=== PATIENT | male | born 1940 | race Caucasian/White ===

== ENCOUNTER 2022-01-29 10:53 | Outpatient (RCR) | payer MEDICARE, SELFPAY ==
[2022-01-29 11:30] LABS: Anion Gap 5 (5-15); BUN 29 mg/dL (7-18); BUN/Creat Ratio 26.4 RATIO (10-20); Calcium,Total 8.9 mg/dL (8.5-10.1); Chloride 109 mmol/L (98-107); EST Glomerular Filtration Rate 68 mL/min (>60); Est Glom Filt Rate - Afr Amer 83 mL/min (>60); Glucose 91 mg/dL (74-106); Potassium 3.4 mmol/L (3.5-5.1); Sodium Level 144 mmol/L (136-145)
== END 2022-01-29 18:00 | disposition home or self-care (01) ==
LOC: HHLAB 10:53
PROVIDERS: PCP Family Medicine; Visit Provider Family Medicine
DX: I11.0 Hypertensive heart disease with heart failure (principal); I50.30 Unspecified diastolic (congestive) heart failure; I95.1 Orthostatic hypotension; I48.20 Chronic atrial fibrillation, unspecified; I50.1 Left ventricular failure, unspecified; I87.2 Venous insufficiency (chronic) (peripheral); N40.0 Benign prostatic hyperplasia without lower urinary tract symptoms; E87.6 Hypokalemia; E78.5 Hyperlipidemia, unspecified; R29.6 Repeated falls; I25.10 Atherosclerotic heart disease of native coronary artery without angina pectoris; Z90.49 Acquired absence of other specified parts of digestive tract; Z91.81 History of falling; Z79.01 Long term (current) use of anticoagulants; Z85.46 Personal history of malignant neoplasm of prostate; Z90.79 Acquired absence of other genital organ(s); Z95.5 Presence of coronary angioplasty implant and graft; Z60.2 Problems related to living alone; Z99.81 Dependence on supplemental oxygen
CPT/HCPCS: 80048

== ENCOUNTER 2022-03-13 09:43 | Outpatient (RCR) | payer MEDICARE, SELFPAY ==
[2022-03-13 10:04] LABS: Anion Gap 6 (5-15); BUN 24 mg/dL (7-18); Calcium,Total 8.6 mg/dL (8.5-10.1); Chloride 105 mmol/L (98-107); Creatinine, Serum 1.26 mg/dL (0.70-1.30); EST Glomerular Filtration Rate 58 mL/min (>60); Est Glom Filt Rate - Afr Amer 71 mL/min (>60); Glucose 98 mg/dL (74-106); Potassium 3.6 mmol/L (3.5-5.1); Sodium Level 143 mmol/L (136-145)
== END 2022-03-13 18:00 | disposition home or self-care (01) ==
LOC: HHLAB 09:43
PROVIDERS: Internal Medicine Cardiovascular Disease; PCP Family Medicine; Visit Provider Family Medicine
DX: I11.0 Hypertensive heart disease with heart failure (principal); I50.30 Unspecified diastolic (congestive) heart failure
CPT/HCPCS: 80048

== ENCOUNTER 2022-04-27 06:05 | Emergency (ER) | payer MEDICARE, SELFPAY ==
[2022-04-27 06:06] VITALS: BP 191/103; PULSE 95; RESP 18; TEMP 36.6; O2SAT 96; BMI 29.0
--- NOTE | 2022-04-27 06:16 | ED.VIS.CHEST ---
HPI History of Present Illness Chief Complaint: Chest Pain Narrative Narrative: Patient presents with chest pain that started about 3 or 4 hours ago. It is retrosternal midsternal region. Does not radiate to arms legs or neck. No back pain or tearing sensation. No pleuritic component. He has chronic lower extremity edema which has not changed. No recent fevers or chills. PFSH PFSH Medical History (HFpEF) heart failure with preserved ejection fraction Atherosclerosis of coronary artery of [place] heart without angina pectoris Essential hypertension Hyperlipidemia Nonrheumatic mitral (valve) insufficiency NASH on CPAP Prostate cancer Venous stasis dermatitis of both lower extremities Home Medications apixaban 5 mg tablet (Eliquis) 5 mg PO BID 01/25/22 [History Last Taken Unknown] atorvastatin 40 mg tablet 40 mg PO QHS 01/25/22 [History Last Taken Unknown] tamsulosin 0.4 mg capsule 0.4 mg PO DAILY 01/25/22 [History Last Taken Unknown] potassium chloride 10 mEq capsule,extended release 10 meq PO BID 01/26/22 [History Last Taken Unknown] torsemide 10 mg tablet 10 mg PO DAILY 01/26/22 [History Last Taken Unknown] Allergy/AdvReac Type Severity Reaction Status Date / Time No Known Allergies Allergy Unverified 01/26/22 15:37 Surgical History History of appendectomy History of cardioversion (12/12/21) History of coronary artery stent placement History of mitral valve repair (09/19/21) History of prostate surgery History of right and left heart catheterization (09/04/21) Social History Smoking Status: Never smoker alcohol intake: never caffeine: Yes ROS ROS ED ROS Narrative Past medical history: Reviewed, includes atherosclerosis, status post PTCA, valvular insufficiency mitral valve repair on 09/19/2021, CHF, hyperlipidemia, obstructive sleep apnea Medications: Reviewed Social history: Noncontributory Review of systems: All systems negative except as indicated General: No fever Eyes: No visual changes ENT: No upper airway congestion, normal voice Neck: No neck pain Cardiovascular: Chest pain as in HPI Respiratory: No shortness of breath or cough Gastrointestinal: No abdominal pain, nausea vomiting or diarrhea Genitourinary: No dysuria Musculoskeletal: Denies myalgias Skin: No rash Neurological: No memory loss, confusion or any focal weakness Psych: No recent behavioral changes Hematologic: No easy bleeding or easy bruising EXAM Physical Exam Narrative Exam Narrative: Physical exam General: Patient appears chronically ill he does not appear in significant distress Head: Normocephalic, Atraumatic Eyes: Conjunctiva not pale ENT: Moist mucous membranes Neck: Supple, Nontender, No lymphadenopathy Cardiovascular: Somewhat irregular. No obvious murmurs, however it is quite loud in the room. Chest wall pain is somewhat reproducible. Respiratory: No distress, CTA bilaterally Abdomen: Soft, Nontender, Nondistended Back: Nontender, Normal Inspection. Negative for: CVA tenderness Extremities: Nontender, bilateral lower extremity edema Skin: Normal color, No rash Neurological: Alert, Normal Strength, Normal Sensation Psychological: Normal affect Const Vital Signs: 04/27/22 06:06 04/27/22 06:10 04/27/22 06:30 Temperature 97.8 F Temperature Source Temporal Pulse Rate 95 Respiratory Rate 18 Respiratory Effort Normal Blood Pressure 191/103 H Blood Pressure Mean 132 Pulse Ox 96 Oxygen Delivery Method Room Air Room Air MDM MDM MDM Narrative Medical decision making narrative: Patient had a cath just a few months ago which was negative. Work-up so far is normal pending a normal second troponin I believe he is stable for discharge. Lab Data Labs: Laboratory Results - last 24 hr 04/27/22 04/27/22 06:20 06:20 WBC 11.7 H RBC 3.93 L Hgb 12.5 L Hct 38.7 L MCV 98.5 H MCH 31.8 MCHC 32.3 RDW Std Deviation 49.5 H RDW Coeff of Olvin 13.8 Plt Count 197 MPV 10.9 Immature Gran % (Auto) 0.600 Neut % (Auto) 81.7 H Lymph % (Auto) 7.9 L [place] % (Auto) 8.6 Eos % (Auto) 0.9 Baso % (Auto) 0.3 Absolute Neuts (auto) 9.6 H Absolute Lymphs (auto) 0.92 Nucleated RBC % 0 Sodium 140 Potassium 4.5 Chloride 102 Carbon Dioxide 34.0 H Anion Gap 4 L BUN 23 H Creatinine 1.37 H Estim Creat Clear Calc 42.29 Est GFR (MDRD) Af Amer 64 Est GFR (MDRD) Non-Af 53 L BUN/Creatinine Ratio 16.8 Glucose 103 Calcium 8.8 Troponin I High Sens 15 Radiography Diagnostic Testing: Chest x-ray read by me is unremarkable EKG Initial EKG: Comments: Atrial fibrillation with a rate of 91. QTc is 450. No obvious ischemic changes other than nonspecific chronic changes. Interpreted by emergency doctor. Discharge Plan Triage Chief Complaint: Chest Pain ED Provider: Sheng Ferguson Dx/Rx/DC Orders Clinical Impression: Chest pain, Acute chest wall pain Instructions: ED Chest Pain, Uncertain Cause Prescriptions: No Action potassium chloride 10 mEq capsule, extended release 10 meq PO BID torsemide 10 mg tablet 10 mg PO DAILY tamsulosin 0.4 mg capsule 0.4 mg PO DAILY atorvastatin 40 mg tablet 40 mg PO QHS Eliquis 5 mg tablet 5 mg PO BID Primary Care Provider: Kodak Hernandez Referrals: Kodak Hernandez MD [Primary Care Provider] - 2 Days Disposition Disposition: Home, Self Care
--- NOTE | 2022-04-27 06:28 | RAD_ITS ---
EXAM: XR CHEST, 1 VIEW CLINICAL INDICATION: chest pain TECHNIQUE: Frontal view of the chest. This report was created using Domee report generation technology. COMPARISON: None. FINDINGS: LUNGS AND PLEURAL SPACES: Patchy areas of opacification in the mid and lower lung zones bilaterally may be due to pneumonia or edema. No pneumothorax. No effusion. HEART: Mild cardiomegaly. MEDIASTINUM: Central airways and mediastinal contour are unremarkable. BONES/JOINTS: Unremarkable. SOFT TISSUES: Unremarkable. RAD/Chest 1 View (Portable) IMPRESSION: 1. Patchy areas of opacification in the mid and lower lung zones bilaterally may be due to pneumonia or edema. 2. Mild cardiomegaly. Electronically Signed: Maurice Robbins MD at 7:14 EST ,
--- NOTE | 2022-04-27 06:28 | EKG12_ITS ---
Test Reason : CP Blood Pressure : / mmHG Vent. Rate : 091 BPM Atrial Rate : 000 BPM P-R Int : 000 ms QRS Dur : 082 ms QT Int : 366 ms P-R-T Axes : 000 087 070 degrees QTc Int : 450 ms Atrial fibrillation Septal infarct , age undetermined Abnormal ECG Confirmed by MIKE WEI, ANGY ([id number]), news videotape editor PETERSON ATWOOD ([id number]) on 05/01/2022 9:22:47 A M Referred By: JULOI Confirmed By:ERWIN MCKEON MD
[2022-04-27] MEDS: Aspirin 81 MG TAB.CHEW 324 MG PO (06:35)
[2022-04-27 06:36] LABS: Absolute Lymphocyte Count 0.92 X10^3/uL (0.83-4.51); Absolute Neutrophil Count 9.6 X10^3/uL (2.0-7.7); Basophil# 0.04 X10^3/uL; Basophil% 0.3 % (0-1); Eosinophil# 0.11 X10^3/uL; Eosinophils% 0.9 % (0-5); Hematocrit 38.7 % (40-54); Hemoglobin 12.5 g/dL (13.0-16.5); Lymphocyte # 0.92 X10^3/ul (0.83-4.51); Lymphocyte % 7.9 % (19-41); Mean Corp Hgb Conc 32.3 g/dL (32-36); Mean Corpuscular Hgb 31.8 pg (27.0-32.0); Mean Corpuscular Volume 98.5 fL (80-94); Mean Platelet Vol. 10.9 fl (6.2-12.0); Monocyte# 1.01 X10^3/uL; Monocyte% 8.6 % (0-10); NRBC Flagged by Analyzer 0 % (0-5); Neutrophil # 9.55 X10^3/uL (2.7-7.7); Neutrophil % 81.7 % (47-70); Platelet Count 197 K/mm3 (150-450); RBC Distribution Width CV 13.8 % (11.6-14.6); RBC Distribution Width SD 49.5 fl (35.1-43.9); Red Blood Count 3.93 M/mm3 (4.6-6.2); White Blood Count 11.7 K/mm3 (4.4-11.0)
[2022-04-27 06:55] LABS: Anion Gap 4 (5-15); BUN 23 mg/dL (7-18); BUN/Creat Ratio 16.8 RATIO (10-20); Calcium,Total 8.8 mg/dL (8.5-10.1); Chloride 102 mmol/L (98-107); Creatinine, Serum 1.37 mg/dL (0.70-1.30); EST Glomerular Filtration Rate 53 mL/min (>60); Est Glom Filt Rate - Afr Amer 64 mL/min (>60); Estimated Creatinine Clearance 42.29 ml/min; Glucose 103 mg/dL (74-106); Potassium 4.5 mmol/L (3.5-5.1); Sodium Level 140 mmol/L (136-145); Troponin-I HS (w/2H Reflex) 15 pg/mL (3.0-78.0)
[2022-04-27] MEDS: Furosemide 40 MG/4 ML Vial IV (07:33)
[2022-04-27 07:37] VITALS: BP 190/105; PULSE 106; RESP 24; O2SAT 97
[2022-04-27 08:33] LABS: Reflex Troponin-HS? (from REC) Y
[2022-04-27 08:41] LABS: BNP,B-Type NATRIURETIC PEPTIDE 209.3 pg/mL (0-100)
[2022-04-27] MEDS: Metoprolol(XL)Succ 50 MG Tablet PO (08:59)
[2022-04-27 09:02] LABS: Troponin-I HS 18 pg/mL (3.0-78.0)
[2022-04-27 09:06] VITALS: BP 159/87; PULSE 102; RESP 24; O2SAT 92
== END 2022-04-27 10:32 | disposition home or self-care (01) ==
PROVIDERS: Emergency Medicine; Emergency Provider Emergency Medicine; PCP Family Medicine; Visit Provider Emergency Medicine
DX: R07.89 Other chest pain (principal); I11.0 Hypertensive heart disease with heart failure; I50.30 Unspecified diastolic (congestive) heart failure; I25.10 Atherosclerotic heart disease of native coronary artery without angina pectoris; E78.5 Hyperlipidemia, unspecified
CPT/HCPCS: 71045; 80048; 83880; 84484; 85025; 93005; 96374; 99285; A4216; J1940

== ENCOUNTER 2023-02-27 20:21 | Inpatient (IN) | payer MEDICARE, SELFPAY ==
[2023-02-27 20:21] VITALS: BP 150/82; PULSE 116; RESP 16; TEMP 36.3; O2SAT 95
--- NOTE | 2023-02-27 21:35 | EKG12_ITS ---
Test Reason : GEN ILL Blood Pressure : / mmHG Vent. Rate : 101 BPM Atrial Rate : 000 BPM P-R Int : 000 ms QRS Dur : 082 ms QT Int : 354 ms P-R-T Axes : 000 058 067 degrees QTc Int : 459 ms Atrial fibrillation with rapid ventricular response Nonspecific ST and T wave abnormality Abnormal ECG Confirmed by ANASTACIO WEI, BETSY ([id number]), online editor DEANDRE TREVINO ([id number]) on 02/28/2023 1:27:21 PM Referred By: Confirmed By:BETSY CHAVES MD
--- NOTE | 2023-02-27 21:36 | EX.ED.DYSGE1 ---
HPI History of Present Illness Chief Complaint: General Illness Narrative Narrative: 82-year-old male past medical history of chronic atrial fibrillation, coronary artery disease, hypertension, hyperlipidemia presents with 2 weeks of generalized weakness, malaise and fatigue. His brother reports that he has been confused for the last 2 weeks as well. They state that he had an episode 3 weeks ago he felt generally weak, and then a week later, he started becoming more confused, not knowing how to run the thermostat, thinking that it was broken. He denies any headache, no problems with urination, no fevers or chills, no cough. He lives at home alone. He was brought in by his brother with concerns of dehydration and hyponatremia. [facility] Medical History (HFpEF) heart failure with preserved ejection fraction Atherosclerosis of coronary artery of [place] heart without angina pectoris Essential hypertension Hyperlipidemia Nonrheumatic mitral (valve) insufficiency NASH on CPAP Prostate cancer Venous stasis dermatitis of both lower extremities Home Medications apixaban 5 mg tablet (Eliquis) 5 mg PO BID 01/25/22 [History Last Taken Unknown] atorvastatin 40 mg tablet 40 mg PO QHS 01/25/22 [History Last Taken Unknown] tamsulosin 0.4 mg capsule 0.4 mg PO DAILY 01/25/22 [History Last Taken Unknown] metoprolol succinate 25 mg tablet,extended release 24 hr 25 mg PO DAILY #90 tabs 09/18/22 [Rx Last Taken Unknown] potassium chloride 10 mEq capsule,extended release 10 meq PO BID #180 caps 10/25/22 [Rx Last Taken Unknown] torsemide 10 mg tablet 10 mg PO DAILY #90 tabs 10/25/22 [Rx Last Taken Unknown] Allergy/AdvReac Type Severity Reaction Status Date / Time No Known Allergies Allergy Verified 02/27/23 20:24 Surgical History History of appendectomy History of cardioversion (12/12/21) History of coronary artery stent placement History of mitral valve repair (09/19/21) History of prostate surgery History of right and left heart catheterization (09/04/21) Social History Smoking Status: Never smoker alcohol intake: never caffeine: Yes ROS ROS ED ROS Narrative Constitutional: No fever, no chills. Generalized weakness. Malaise and fatigue. HEENT: No sore throat. No neck pain. No loss of vision. No rhinorrhea. Cardiovascular: No chest pain. No palpitations. No pedal edema. Respiratory: No cough, no shortness of breath. Abdominal: No abdominal pain. No nausea. No vomiting. Genitourinary: No dysuria. No hematuria. Musculoskeletal: No myalgias. No arthralgias. Neurologic: No headaches. No dizziness. No lightheadedness. Skin: No rash. No change in color. Psychiatric: No depression. No anxiety. EXAM Physical Exam Narrative Exam Narrative: Afebrile. Vital signs noted. HEENT: Normocephalic. Atraumatic. PERRL, EOMI. Neck soft and supple. No point tenderness or step off. Cardiovascular: Positive tachycardia. No murmurs, rubs, or gallops appreciated. Respiratory: No tachypnea. Lungs clear to auscultation bilaterally. Gastrointestinal: Abdomen soft, nontender, with normoactive bowel sounds. No rebound or guarding. Neurological: Awake. Alert. Nonfocal, nonlateralizing. Skin: No rash. Normal color. No pallor. Musculoskeletal: No pedal edema. Full range of motion extremities. Const Vital Signs: 02/27/23 20:21 02/27/23 23:09 Temperature 97.4 F L 97.9 F Temperature Source Temporal Oral Pulse Rate 116 H 113 H Respiratory Rate 16 18 Blood Pressure 150/82 H 172/101 H Blood Pressure Mean 104 124 Pulse Ox 95 95 Oxygen Delivery Method Room Air Room Air MDM MDM MDM Narrative Medical decision making narrative: In a man of this age, in the differential is hyponatremia and dehydration versus generalized deconditioning. He may have an occult urinary tract infection. Given his tachycardia, comprehensive work-up was pursued. As he lives alone, I do feel that he may require at least observation to see what he qualifies for home health care versus possible placement in rehabilitation and custodial facility. Reviewed his prior records and he has not been here since 2021. Was obtained and interpreted by myself independently as atrial fibrillation at 101 bpm without other ectopy or acute ST changes. No STEMI. I reviewed his laboratory work and he has normal white count of 9.4, hemoglobin normal at 13.2, platelet count normal at 163. Electrolyte panel shows normal sodium of 139, potassium normal at 4.1, anion gap low at 4 with a BUN of 25 and a creatinine of 1.39 but he has had prior elevated creatinine of 1.3 in the past. Glucose is appropriately elevated at 101. Lactic acid is normal at 1.1, AST low at 11, ALT also low at 12 with an alk phos normal at 104. Chest x-ray 1 view interpreted by myself independently shows no evidence of pneumonia. I do not feel he needs antibiotics. At this point in time, he was given be straight cathed for urine, but he has not undergarment on and is leaking urine. [place] catheter will be placed instead, and he will still be bolused 500 mL of IV fluid. Given his generalized weakness and need for placement versus home health care, patient will be discussed with the hospitalist. As the urinalysis has not returned quite yet, patient will be signed out to the oncoming physician to make final disposition. Currently, he is in stable condition. History & Record Review Discussion w/independent historian: Patient and Family Additional record(s) reviewed:: Prior ED visit Lab Data Attestation: I reviewed the patient's lab results. Labs: Laboratory Results - last 24 hr 02/27/23 21:50 WBC 9.4 RBC 4.11 L Hgb 13.2 Hct 40.8 MCV 99.3 H MCH 32.1 H MCHC 32.4 RDW Std Deviation 54.8 H RDW Coeff of Olvin 14.9 H Plt Count 163 MPV 11.5 Immature Gran % (Auto) 0.400 Neut % (Auto) 78.5 H Lymph % (Auto) 10.2 L [place] % (Auto) 10.2 H Eos % (Auto) 0.4 Baso % (Auto) 0.3 Absolute Neuts (auto) 7.3 Absolute Lymphs (auto) 0.95 Nucleated RBC % 0 Sodium 139 Potassium 4.1 Chloride 105 Carbon Dioxide 30.0 Anion Gap 4 L BUN 25 H Creatinine 1.39 H Est GFR (MDRD) Af Amer 63 Est GFR (MDRD) Non-Af 52 L BUN/Creatinine Ratio 18.0 Glucose 101 Lactic Acid 1.1 Calcium 8.9 Total Bilirubin 1.20 H AST 11 L ALT 12 L Alkaline Phosphatase 104 Troponin I High Sens 18 Total Protein 6.6 Albumin 3.0 L Globulin 3.6 Albumin/Globulin Ratio 0.8 L Radiography Diagnostic Testing: Clinical Impression(s) from Imaging Studies Chest X-Ray 02/27/23 22:05 IMPRESSION: 1. Prominent markings probably chronic. 2. No focal infiltrate is seen. Electronically Signed: Hilario Henry MD at 22:27 EDT , Discharge Plan Triage Chief Complaint: General Illness ED Provider: Zeb Christensen Dx/Rx/DC Orders Prescriptions: No Action tamsulosin 0.4 mg capsule 0.4 mg PO DAILY atorvastatin 40 mg tablet 40 mg PO QHS Eliquis 5 mg tablet 5 mg PO BID metoprolol succinate 25 mg tablet extended release 24 hr 25 mg PO DAILY Qty: 90 3RF potassium chloride 10 mEq capsule, extended release 10 meq PO BID Qty: 180 3RF torsemide 10 mg tablet 10 mg PO DAILY Qty: 90 3RF Primary Care Provider: Kodak Hernandez Referrals: Kodak Hernandez MD [Primary Care Provider] -
[2023-02-27 21:56] LABS: Absolute Lymphocyte Count 0.95 X10^3/uL (0.83-4.51); Absolute Neutrophil Count 7.3 X10^3/uL (2.0-7.7); Basophil# 0.03 X10^3/uL; Basophil% 0.3 % (0-1); Eosinophil# 0.04 X10^3/uL; Eosinophils% 0.4 % (0-5); Hematocrit 40.8 % (40-54); Hemoglobin 13.2 g/dL (13.0-16.5); Lymphocyte # 0.95 X10^3/ul (0.83-4.51); Lymphocyte % 10.2 % (19-41); Mean Corp Hgb Conc 32.4 g/dL (32-36); Mean Corpuscular Hgb 32.1 pg (27.0-32.0); Mean Corpuscular Volume 99.3 fL (80-94); Mean Platelet Vol. 11.5 fl (6.2-12.0); Monocyte# 0.95 X10^3/uL; Monocyte% 10.2 % (0-10); NRBC Flagged by Analyzer 0 % (0-5); Neutrophil # 7.34 X10^3/uL (2.7-7.7); Neutrophil % 78.5 % (47-70); Platelet Count 163 K/mm3 (150-450); RBC Distribution Width CV 14.9 % (11.6-14.6); RBC Distribution Width SD 54.8 fl (35.1-43.9); Red Blood Count 4.11 M/mm3 (4.6-6.2); White Blood Count 9.4 K/mm3 (4.4-11.0)
--- NOTE | 2023-02-27 22:05 | RAD_ITS ---
INDICATION: CAD EXAMINATION/TECHNIQUE: X-RAY - XR Chest 1 View COMPARISON: 04/27/2022. FINDINGS: LINES/DEVICES: None. LUNGS: Prominent markings in the mid and lower zones probably chronic. Metallic density overlying the left lower lung zone. No evidence of pleural effusions. MEDIASTINUM AND CARDIOVASCULAR STRUCTURES: Cardiac silhouette not enlarged. Central airways and mediastinal contour are unremarkable. BONES AND SOFT TISSUES: Unremarkable. RAD/Chest 1 View (Portable) IMPRESSION: 1. Prominent markings probably chronic. 2. No focal infiltrate is seen. Electronically Signed: Hilario Henry MD at 22:27 EDT ,
[2023-02-27 22:17] LABS: ALB/GLOB Ratio 0.8 RATIO (0.9-2.4); AST(SGOT) 11 U/L (15-37); Alanine Aminotransfer ALT/SGPT 12 U/L (16-61); Alkaline Phosphatase 104 U/L (45-117); Anion Gap 4 (5-15); BUN 25 mg/dL (7-18); Calcium,Total 8.9 mg/dL (8.5-10.1); Chloride 105 mmol/L (98-107); Creatinine, Serum 1.39 mg/dL (0.70-1.30); EST Glomerular Filtration Rate 52 mL/min (>60); Est Glom Filt Rate - Afr Amer 63 mL/min (>60); Globulin 3.6 g/dL (2.2-4.2); Glucose 101 mg/dL (74-106); Potassium 4.1 mmol/L (3.5-5.1); Protein, Total 6.6 g/dL (6.4-8.2); Sodium Level 139 mmol/L (136-145); Troponin-I HS 18 pg/mL (3.0-78.0)
[2023-02-27 22:21] LABS: Lactic Acid 1.1 mmol/L (0.4-1.9)
[2023-02-27 23:04] VITALS: BMI 36.8
[2023-02-27] MEDS: 0.9% Normal Saline (1000mL) 1,000 ML 1000 ML IV (23:04)
[2023-02-27 23:09] VITALS: BP 172/101; PULSE 113; RESP 18; TEMP 36.6; O2SAT 95
[2023-02-27 23:42] LABS: Color, Urine Yellow (Yellow); Glucose, Dipstick Normal (Normal); Ketone-Dipstick Negative (Negative); Leukocyte Esterase-Dipstick 500 /ul (Negative); Mucous, Urine 0 SEEN /hpf (<or=2+); Nitrite-Dipstick Positive (Negative); Occult Blood-Urine 250 /ul (Negative); Protein-Dipstick 30 mg/dl (Negative); Specific Gravity, Urine 1.005 (1.002-1.030); Squamous Epithelial Cells - UA 0 SEEN /hpf (0-5); Urine Bilirubin Dipstick Negative (Negative); Urine Clarity Sl. Cloudy (Clear); Urine Urobilinogen Normal (Normal)
[2023-02-28] MEDS: Metoprolol Tartrate 5 MG/5 ML Vial IV (00:04)
[2023-02-28 00:06] LABS: Bacteria 2+ /hpf (None Seen); Red Blood Cells-Urine 10-25 SEEN /hpf (0-5); White Blood Cells >100 SEEN /hpf (0-5)
[2023-02-28] MEDS: Ceftriaxone 1 GM/50 ML BAG IV ×2 (00:12→21:26)
--- NOTE | 2023-02-28 00:29 | PCM.HP.STD ---
HPI - General General Date of Admission: 02/28/23 Date of Service: 02/28/23 Chief Complaint: Weakness HPI Narrative MERARI JIN, is a 82 M with a significant history of chronic atrial fibrillation; CAD; hypertension; and hyperlipidemia reportedly with 2 weeks history of generalized weakness; malaise and fatigue. Per report received from emergency physician patient was confused as well. However patient denies any confusion. Reportedly patient lives at home by himself and per family patient is unable to take care of himself at this time. [facility] Medical History (HFpEF) heart failure with preserved ejection fraction Atherosclerosis of coronary artery of [place] heart without angina pectoris Essential hypertension Hyperlipidemia Nonrheumatic mitral (valve) insufficiency NASH on CPAP Prostate cancer Venous stasis dermatitis of both lower extremities Home Medications apixaban 5 mg tablet (Eliquis) 5 mg PO BID 01/25/22 [History Last Taken Unknown] atorvastatin 40 mg tablet 40 mg PO QHS 01/25/22 [History Last Taken Unknown] tamsulosin 0.4 mg capsule 0.4 mg PO DAILY 01/25/22 [History Last Taken Unknown] metoprolol succinate 25 mg tablet,extended release 24 hr 25 mg PO DAILY #90 tabs 09/18/22 [Rx Last Taken Unknown] potassium chloride 10 mEq capsule,extended release 10 meq PO BID #180 caps 10/25/22 [Rx Last Taken Unknown] torsemide 10 mg tablet 10 mg PO DAILY #90 tabs 10/25/22 [Rx Last Taken Unknown] Allergy/AdvReac Type Severity Reaction Status Date / Time No Known Allergies Allergy Verified 02/27/23 20:24 Family History Other Prostate cancer Surgical History History of appendectomy History of cardioversion (12/12/21) History of coronary artery stent placement History of mitral valve repair (09/19/21) History of prostate surgery History of right and left heart catheterization (09/04/21) Social History Smoking Status: Never smoker alcohol intake: never caffeine: Yes ROS ROS Narrative Pertinent positives and pertinent negatives as noted in HPI. All other systems were reviewed and are negative Vital Signs Vital Signs Vital Signs: 02/27/23 20:21 02/27/23 23:09 Temperature 97.4 F L 97.9 F Temperature Source Temporal Oral Pulse Rate 116 H 113 H Respiratory Rate 16 18 Blood Pressure 150/82 H 172/101 H Blood Pressure Mean 104 124 Pulse Ox 95 95 Oxygen Delivery Method Room Air Room Air Weight Weight: 110 kg Body Mass Index (BMI) 36.8 Physical Exam Narrative Physical exam: General: Well-nourished, well-developed. Head: Normocephalic, atraumatic, no tenderness Eyes: Vision is grossly intact. EOMI ENT, no trauma, moist mucous membranes, no rhinorrhea Neck: Nontender, No thyromegaly. CVS: Regular rate and rhythm. S1-S2 present. No murmur, gallop or rub. Respiratory : clear to auscultation bilaterally, chest wall nontender Abdomen: Soft, nontender, nondistended, normal bowel sounds, no masses : Medina catheter in place with light bloody urine from proximal site of Medina. Back: Nontender, no CVA tenderness. Extremities: Nontender full range of motion, no trauma Skin: Normal color, no trauma, abrasions Neuro: Alert.patient knows the year. Patient knows the month. Patient stated that is it was the th of the month while it was before 1 AM on the th of the month. Psychiatry: Normal mood. Normal affect. Not depressed. Not anxious. Results Lab / Micro Data 02/28/23 06:50 02/28/23 06:50 Labs: Laboratory Results - last 24 hr 02/27/23 21:50: WBC 9.4, RBC 4.11 L, Hgb 13.2, Hct 40.8, MCV 99.3 H, MCH 32.1 H, MCHC 32.4, RDW Std Deviation 54.8 H, RDW Coeff of [place] 14.9 H, Plt Count 163, MPV 11.5, Immature Gran % (Auto) 0.400, Neut % (Auto) 78.5 H, Lymph % (Auto) 10.2 L, [place] % (Auto) 10.2 H, Eos % (Auto) 0.4, Baso % (Auto) 0.3, Absolute Neuts (auto) 7.3, Absolute Lymphs (auto) 0.95, Nucleated RBC % 0, Sodium 139, Potassium 4.1, Chloride 105, Carbon Dioxide 30.0, Anion Gap 4 L, BUN 25 H, Creatinine 1.39 H, Est GFR (MDRD) Af Amer 63, Est GFR (MDRD) Non-Af 52 L, BUN/Creatinine Ratio 18.0, Glucose 101, Lactic Acid 1.1, Calcium 8.9, Total Bilirubin 1.20 H, AST 11 L, ALT 12 L, Alkaline Phosphatase 104, Troponin I High Sens 18, Total Protein 6.6, Albumin 3.0 L, Globulin 3.6, Albumin/Globulin Ratio 0.8 L 02/27/23 23:30: Urine Color Yellow, Urine Clarity Sl. Cloudy, Urine pH 7.0, Ur Specific [place] 1.005, Urine Protein 30 H, Urine Glucose (UA) Normal, Urine Ketones Negative, Urine Occult Blood 250 H, Urine Nitrite Positive H, Urine Bilirubin Negative, Urine Urobilinogen Normal, Ur Leukocyte Esterase 500 H, Urine RBC 10-25 SEEN, Urine WBC >100 SEEN, Ur Squamous Epith Cells 0 SEEN, Urine Bacteria 2+, Urine Mucus 0 SEEN Radiology Impression Chest X-Ray 02/27/23 22:05 IMPRESSION: 1. Prominent markings probably chronic. 2. No focal infiltrate is seen. Electronically Signed: Hilario Henry MD at 22:27 EDT , Assessment & Plan Assessment/Plan (1) Urinary tract infection: QUALIFIERS: Urinary tract infection type: acute cystitis Hematuria presence: without hematuria Qualified Code(s): N30.00 - Acute cystitis without hematuria (2) Debility: (3) Generalized weakness: PLAN: Plan Debility likely from UTI/generalized weakness Med[place] catheter was placed at the ED. Urinalysis from the ED was reviewed; abnormal. Follow urine culture. Received ceftriaxone at the emergency department and continued. PT and OT to evaluate and treat. Case management consult. CBC showed normal white count. Trend. Hypertension Blood pressure is not within goal Continue home blood pressure medication when verified. PRN Hydralazine IV ordered. Trend blood pressure and adjust blood pressure medications. Acute encephalopathy Appears resolved. CKD stage IIIa Stable DVT prophylaxis Subcutaneous Lovenox ordered. Time spent in the patient's overall evaluation,decision-making process, review of diagnostic data, adjustment of management, discussion with other providers, nursing nursing and ancillary staff involved in patient's care documentation, 65 minutes. Charges/Coding Visit Charges Inpatient E&M: 48537 Init Hosp L3
[2023-02-28 00:50] VITALS: BP 168/90; PULSE 76; RESP 16; TEMP 36.6; O2SAT 96
[2023-02-28 02:18] VITALS: BMI 38.9
[2023-02-28 02:31] VITALS: BP 162/87; PULSE 97; RESP 18; TEMP 36.5; O2SAT 95
[2023-02-28] MEDS: Menthol/Lanolin/Calamine/Znox 113 GM Tube 1 APPLIC TOPICAL ×3 (05:09→21:25)
[2023-02-28] MEDS: Miconazole Nitrate 43 GM Bottle 1 APPLIC TOPICAL ×3 (05:10→21:26)
[2023-02-28 07:10] LABS: Absolute Lymphocyte Count 0.79 X10^3/uL (0.83-4.51); Absolute Neutrophil Count 6.7 X10^3/uL (2.0-7.7); Basophil# 0.02 X10^3/uL; Basophil% 0.2 % (0-1); Eosinophil# 0.03 X10^3/uL; Eosinophils% 0.3 % (0-5); Hematocrit 42.2 % (40-54); Hemoglobin 13.4 g/dL (13.0-16.5); Lymphocyte # 0.79 X10^3/ul (0.83-4.51); Lymphocyte % 9.2 % (19-41); Mean Corp Hgb Conc 31.8 g/dL (32-36); Mean Corpuscular Hgb 31.5 pg (27.0-32.0); Mean Corpuscular Volume 99.3 fL (80-94); Mean Platelet Vol. 11.1 fl (6.2-12.0); Monocyte# 1.01 X10^3/uL; Monocyte% 11.7 % (0-10); NRBC Flagged by Analyzer 0 % (0-5); Neutrophil # 6.72 X10^3/uL (2.7-7.7); Neutrophil % 78.3 % (47-70); Platelet Count 165 K/mm3 (150-450); RBC Distribution Width CV 14.8 % (11.6-14.6); Red Blood Count 4.25 M/mm3 (4.6-6.2); White Blood Count 8.6 K/mm3 (4.4-11.0)
[2023-02-28 07:23] VITALS: O2SAT 94
[2023-02-28 07:35] LABS: Anion Gap 4 (5-15); BUN 23 mg/dL (7-18); BUN/Creat Ratio 18.3 RATIO (10-20); Calcium,Total 8.6 mg/dL (8.5-10.1); Chloride 105 mmol/L (98-107); Creatinine, Serum 1.26 mg/dL (0.70-1.30); EST Glomerular Filtration Rate 58 mL/min (>60); Est Glom Filt Rate - Afr Amer 70 mL/min (>60); Estimated Creatinine Clearance 43.73 ml/min; Glucose 102 mg/dL (74-106); Potassium 3.6 mmol/L (3.5-5.1); Sodium Level 138 mmol/L (136-145)
[2023-02-28 09:48] VITALS: BP 174/79; PULSE 97; RESP 18; TEMP 36.3; O2SAT 95
--- NOTE | 2023-02-28 13:30 | CASEMGMT ---
RN?CM?ACROBATIC DANCER?CM?to room to meet with patient for initial transition planning/care coordination?assessment.?RN?CM?introduced self and role at [facility].? Pt voices understanding and consents to?assessment?at this time.? Pt sitting up in chair in room in no distress at this time.? Pt is alert and able to answer most questions appropriately, but noted some intermittent confusion and some difficulty answer some questions. Pt initially asked APPLE ARCINIEGA to call his grandson, Nikunj, stating he was his healthcare POA. APPLE ARCINIEGA placed call to Nikunj to verify the following. TC to Nikunj who was made aware pt reports he is HCPOA. Nikunj states he was not aware of this and does not have copies of this either. Nikunj stated he does not know as much medical information as pt's brother would know. Pt gave permission for APPLE ARCINIEGA to call both his brother, Alma, and also his son, Duran and APPLE ARCINIEGA placed call to both of them as well. The following information was obtained b/w patient, brother, son, and GS/Nikunj. They were all made aware therapy would work with patient and make recommendations and they were aware there would be further discussion re: discharge plan. PCP: Dr Hernandez Specialists: Pt states he has seen Dr Hermosillo/cardiology in the past just once, but does not see him on a routine basis. Preferred Pharmacy: [facility] Insurance: [facility] A/B Prescription Benefit:?Pt states [employer]s. Living Will/HPOA:?Pt states he has done both LW and Healthcare POA and states his grandson, Nikunj, is his POA. Nikunj was not aware of this. Pt states the documents are in his safe at home. Duran states he does not have access to get into the safe to get these documents. LNOK: One son, Duran. GrandsonNikunj. Brother, Alma Living Arrangements: Pt lives alone in one-story home w/basement. Pt states there is a ramp entrance into his home and a walk-out basement. Pt independent w/ADL's, IADL's, manages his own medications, and does his own yard-work. DME: Duran thinks pt has a PAP but does not think he wears it regularly. Pt has a walker, but does not use it. Pt has a pedal exercise machine. HHC/SNF: Hx of [facility]. Pt states he really like the therapist's there. Also has had HHC in the past. PLAN:??TBD by pt progress and progress with therapy. Joseline MANCUSON RN CM
[2023-02-28 14:00] VITALS: BP 115/56; PULSE 97; RESP 20; TEMP 37; O2SAT 93
--- NOTE | 2023-02-28 14:32 | NURSING ---
chair alarm alarming. pt assisted back to bed x2 staff assist. gait unsteady, pt needs assistance x2 staff to be readjusted in bed/assist with legs and upper body positioning.
--- NOTE | 2023-02-28 14:58 | CASEMGMT ---
Social Work Per verbal report from Carrie RNCM, RNCM spoke with pt, pt son and grandson regarding HCPOA and Living will. Pt reports he has completed both documents and has name his grandson Nikunj Dickey as HCPOA. Pt made aware documents are not on file at [facility] and requested they be brought in for scanning into medical record. BERENICE Naranjo
[2023-02-28 21:22] VITALS: BP 134/67; PULSE 84; RESP 15; TEMP 36.6; O2SAT 97
[2023-02-28] MEDS: Atorvastatin Calcium 40 MG Tablet PO (21:26)
[2023-02-28] MEDS: QUEtiapine 25 MG Tablet PO (21:26)
[2023-03-01] VITALS (7 sets, daily range): BP systolic 102–155; BP diastolic 46–81; PULSE 90–98; RESP 18; TEMP 36.4–36.8; O2SAT 94–98
[2023-03-01] MEDS: Menthol/Lanolin/Calamine/Znox 113 GM Tube 1 APPLIC TOPICAL ×2 (06:34→22:58)
[2023-03-01] MEDS: Miconazole Nitrate 43 GM Bottle 1 APPLIC TOPICAL ×2 (06:34→22:58)
[2023-03-01 07:29] LABS: Absolute Lymphocyte Count 1.25 X10^3/uL (0.83-4.51); Absolute Neutrophil Count 8.9 X10^3/uL (2.0-7.7); Basophil# 0.03 X10^3/uL; Basophil% 0.3 % (0-1); Eosinophil# 0.05 X10^3/uL; Eosinophils% 0.4 % (0-5); Hematocrit 39.9 % (40-54); Hemoglobin 12.8 g/dL (13.0-16.5); Lymphocyte # 1.25 X10^3/ul (0.83-4.51); Lymphocyte % 10.7 % (19-41); Mean Corp Hgb Conc 32.1 g/dL (32-36); Mean Corpuscular Hgb 31.8 pg (27.0-32.0); Mean Platelet Vol. 11.5 fl (6.2-12.0); Monocyte# 1.34 X10^3/uL; Monocyte% 11.5 % (0-10); NRBC Flagged by Analyzer 0 % (0-5); Neutrophil # 8.92 X10^3/uL (2.7-7.7); Neutrophil % 76.7 % (47-70); Platelet Count 160 K/mm3 (150-450); RBC Distribution Width CV 15.1 % (11.6-14.6); RBC Distribution Width SD 54.8 fl (35.1-43.9); Red Blood Count 4.03 M/mm3 (4.6-6.2); White Blood Count 11.6 K/mm3 (4.4-11.0)
[2023-03-01 08:07] LABS: Anion Gap 4 (5-15); BUN 26 mg/dL (7-18); BUN/Creat Ratio 19.1 RATIO (10-20); Calcium,Total 8.4 mg/dL (8.5-10.1); Chloride 104 mmol/L (98-107); Creatinine, Serum 1.36 mg/dL (0.70-1.30); EST Glomerular Filtration Rate 53 mL/min (>60); Est Glom Filt Rate - Afr Amer 64 mL/min (>60); Estimated Creatinine Clearance 40.51 ml/min; Glucose 103 mg/dL (74-106); Potassium 4.1 mmol/L (3.5-5.1); Sodium Level 137 mmol/L (136-145)
--- NOTE | 2023-03-01 09:06 | PN.HOSP_ITS ---
Subjective Subjective He knows where he is but does not know what year it is. No issues overnight continue to have some light hematuria Objective Data Objective Data Vital Signs: Vital Signs Temp Pulse Resp BP Pulse Ox O2 Del Method 97.8 F 94 18 145/71 H 95 Room Air 03/01/23 09:00 03/01/23 09:00 03/01/23 09:00 03/01/23 09:00 03/01/23 09:00 03/01/23 09:00 Oxygen Delivery Method Room Air Weight: 255 lb 11.779 oz Body Mass Index (BMI) 38.9 Intake & Output: Intake and Output for Last 24 Hours 02/28/23 03/01/23 03/02/23 03:59 03:59 03:59 Intake Total 1050 / 1050 470 / 470 150 / 150 Output Total 2400 / 2400 300 / 300 Balance 1050 / 1050 -1930 / -1930 -150 / -150 Lab / Micro Data 03/01/23 06:50 03/01/23 06:50 Labs: Laboratory Results - last 24 hr 03/01/23 06:50: WBC 11.6 H, RBC 4.03 L, Hgb 12.8 L, Hct 39.9 L, MCV 99.0 H, MCH 31.8, MCHC 32.1, RDW Std Deviation 54.8 H, RDW Coeff of Olvin 15.1 H, Plt Count 160, MPV 11.5, Immature Gran % (Auto) 0.400, Neut % (Auto) 76.7 H, Lymph % (Auto) 10.7 L, [place] % (Auto) 11.5 H, Eos % (Auto) 0.4, Baso % (Auto) 0.3, Absolute Neuts (auto) 8.9 H, Absolute Lymphs (auto) 1.25, Nucleated RBC % 0, Sodium 137, Potassium 4.1, Chloride 104, Carbon Dioxide 29.0, Anion Gap 4 L, BUN 26 H, Creatinine 1.36 H, Estim Creat Clear Calc 40.51, Est GFR (MDRD) Af Amer 64, Est GFR (MDRD) Non-Af 53 L, BUN/Creatinine Ratio 19.1, Glucose 103, Calcium 8.4 L Physical Exam Narrative General: Alert, Oriented x2, Cooperative, No apparent distress HEENT: Atraumatic, PERRLA, EOMI, Normocephalic Oral: Moist Mucosa Neck: Supple, No JVD Lungs: Diminished, Normal air movement, No rhonchi, No wheeze, No rales Cardiovascular: Regular rate, Regular Rhythm, Normal S1, Normal S2, No murmurs Abdomen: Soft, Non Tender, Non-Distended, No Hepato-splenomegaly Extremities: No edema, Capillary Refill Less than 3 Seconds Skin: No rashes, No breakdown Musculoskeletal: No Tenderness to Palpation of Joints or Extremities Neurological: Motor Exam 5/5 strength throughout, Sensory exam intact to light touch and pain Psych/Mental Status: Flat affect Assessment & Plan Assessment/Plan (1) Urinary tract infection: QUALIFIERS: Urinary tract infection type: acute cystitis Brendan turia presence: without hematuria Qualified Code(s): N30.00 - Acute cystitis without hematuria (2) Debility: (3) Generalized weakness: PLAN: Plan 1. Debility and metabolic encephalopathy from UTI with hematuria ? Continue with IV Rocephin, urine cultures pending ? PT/OT evaluation ? We will hold his Eliquis and Lovenox given his hematuria we will monitor his CBCs, if necessary will need to get involved 2. HTN/HLD/chronic diastolic CHF/chronic A-fib ? We will hold his secondary to his Eliquis secondary to hematuria ? Can resume all of his home blood pressure medications ? We will monitor and make adjustments as necessary 3. BPH ? Continue with Medina at this time given his hematuria ? Continue with Flomax DVT: SCDs Charges/Coding Visit Charges Inpatient E&M: 94536 Subs Hosp L2
[2023-03-01] MEDS: Tamsulosin HCl 0.4 MG Capsule PO (09:11)
[2023-03-01] MEDS: Ferrous Sulfate 325 MG Tablet PO (09:11)
[2023-03-01] MEDS: Amiodarone 200 MG Tablet PO (09:11)
[2023-03-01] MEDS: Metoprolol(XL)Succ 25 MG Tablet PO (09:11)
--- NOTE | 2023-03-01 15:20 | CASEMGMT ---
Addendum entered by Larissa Beach 03/01/23 15:30: Received tc back from pt son. He states he will be in this evening to visit with patient. He states he will talk to him and see how he is doing. He asks APPLE ARCINIEGA to check back with pt tomorrow. Original Note: APPLE ARCINIEGA into pt room, pt oriented x3 but slow to answer questions. Pt denies any needs at home. Discussed pt therapy sessions with him, he states he can manage himself at home. He states he doesn't not want any help at home and that he wants to go home. He states his grandson is his DPOA Nikunj Dickey, but no record on file. He is agreeable to this APPLE ARCINIEGA calling any family members. TC to Nikunj, no answer. TC to brother, he asks for APPLE ARCINIEGA to call pt son to weigh in on this. TC to pt son, left with returned call.
[2023-03-01] MEDS: Ceftriaxone 1 GM/50 ML BAG IV (22:57)
[2023-03-01] MEDS: Atorvastatin Calcium 40 MG Tablet PO (22:57)
[2023-03-02 02:12] VITALS: BP 121/61; PULSE 91; RESP 18; TEMP 36.6; O2SAT 96
[2023-03-02] MEDS: Miconazole Nitrate 43 GM Bottle 1 APPLIC TOPICAL ×3 (06:39→21:45)
[2023-03-02] MEDS: Menthol/Lanolin/Calamine/Znox 113 GM Tube 1 APPLIC TOPICAL ×3 (06:39→21:45)
[2023-03-02 06:45] VITALS: BP 121/60; PULSE 89; RESP 20; TEMP 36.4; O2SAT 94
[2023-03-02] MEDS: 0.9% Saline Lock 10 ML Syringe IV ×3 (07:02→21:46)
--- NOTE | 2023-03-02 08:02 | PN.HOSP_ITS ---
Subjective Subjective Doing well, no issues overnight Objective Data Objective Data Vital Signs: Vital Signs Temp Pulse Resp BP Pulse Ox O2 Del Method 97.5 F L 89 20 H 121/60 H 94 Room Air 03/02/23 06:45 03/02/23 06:45 03/02/23 06:45 03/02/23 06:45 03/02/23 06:45 03/02/23 06:45 Oxygen Delivery Method Room Air Weight: 255 lb 11.779 oz Body Mass Index (BMI) 38.9 Intake & Output: Intake and Output for Last 24 Hours 03/01/23 03/02/23 03/03/23 03:59 03:59 03:59 Intake Total 470 / 470 550 / 550 Output Total 2400 / 2400 1000 / 1000 300 / 300 Balance -1930 / -1930 -450 / -450 -300 / -300 Lab / Micro Data 03/01/23 06:50 03/01/23 06:50 Labs: Laboratory Results - last 24 hr 03/01/23 06:50: Sodium 137, Potassium 4.1, Chloride 104, Carbon Dioxide 29.0, Anion Gap 4 L, BUN 26 H, Creatinine 1.36 H, Estim Creat Clear Calc 40.51, Est GFR (MDRD) Af Amer 64, Est GFR (MDRD) Non-Af 53 L, BUN/Creatinine Ratio 19.1, Glucose 103, Calcium 8.4 L Micro: Microbiology 02/27/23 23:30 Urine, Catheterized Urine Culture - Preliminary GNR Poss Pseudomonas sp Physical Exam Narrative General: Alert, Oriented x2, Cooperative, No apparent distress HEENT: Atraumatic, PERRLA, EOMI, Normocephalic Oral: Moist Mucosa Neck: Supple, No JVD Lungs: Diminished, Normal air movement, No rhonchi, No wheeze, No rales Cardiovascular: Regular rate, Regular Rhythm, Normal S1, Normal S2, No murmurs Abdomen: Soft, Non Tender, Non-Distended, No Hepato-splenomegaly Extremities: No edema, Capillary Refill Less than 3 Seconds Skin: No rashes, No breakdown Musculoskeletal: No Tenderness to Palpation of Joints or Extremities Neurological: Motor Exam 5/5 strength throughout, Sensory exam intact to light touch and pain Psych/Mental Status: Flat affect Assessment & Plan Assessment/Plan (1) Urinary tract infection: QUALIFIERS: Urinary tract infection type: acute cystitis H ematuria presence: without hematuria Qualified Code(s): N30.00 - Acute cystitis without hematuria (2) Debility: (3) Generalized weakness: PLAN: Plan 1. Debility and metabolic encephalopathy from UTI with hematuria ? Cultures with possible Pseudomonas therefore will transition from Rocephin to Cipro while awaiting sensitivities ? PT/OT evaluation ? We will hold his Eliquis and Lovenox given his hematuria we will monitor his CBCs, if necessary will need to get urology involved 2. HTN/HLD/chronic diastolic CHF/chronic A-fib ? We will hold his secondary to his Eliquis secondary to hematuria ? Can resume all of his home blood pressure medications ? We will monitor and make adjustments as necessary 3. BPH ? Continue with Medina at this time given his hematuria ? Continue with Flomax DVT: SCDs Charges/Coding Visit Charges Inpatient E&M: 38967 Subs Hosp L2
[2023-03-02 08:05] LABS: Absolute Lymphocyte Count 1.19 X10^3/uL (0.83-4.51); Absolute Neutrophil Count 9.4 X10^3/uL (2.0-7.7); Basophil# 0.06 X10^3/uL; Basophil% 0.5 % (0-1); Eosinophil# 0.11 X10^3/uL; Eosinophils% 0.9 % (0-5); Hematocrit 39.1 % (40-54); Hemoglobin 12.7 g/dL (13.0-16.5); Lymphocyte # 1.19 X10^3/ul (0.83-4.51); Lymphocyte % 9.7 % (19-41); Mean Corp Hgb Conc 32.5 g/dL (32-36); Mean Corpuscular Hgb 32.2 pg (27.0-32.0); Monocyte# 1.41 X10^3/uL; Monocyte% 11.5 % (0-10); NRBC Flagged by Analyzer 0 % (0-5); Neutrophil # 9.37 X10^3/uL (2.7-7.7); Neutrophil % 76.7 % (47-70); Platelet Count 158 K/mm3 (150-450); RBC Distribution Width CV 15.2 % (11.6-14.6); RBC Distribution Width SD 55.7 fl (35.1-43.9); Red Blood Count 3.95 M/mm3 (4.6-6.2); White Blood Count 12.2 K/mm3 (4.4-11.0)
[2023-03-02 08:14] LABS: Anion Gap 7 (5-15); BUN 40 mg/dL (7-18); BUN/Creat Ratio 17.5 RATIO (10-20); Calcium,Total 8.2 mg/dL (8.5-10.1); Chloride 104 mmol/L (98-107); Creatinine, Serum 2.29 mg/dL (0.70-1.30); EST Glomerular Filtration Rate 29 mL/min (>60); Est Glom Filt Rate - Afr Amer 35 mL/min (>60); Estimated Creatinine Clearance 24.06 ml/min; Glucose 116 mg/dL (74-106); Potassium 4.2 mmol/L (3.5-5.1); Sodium Level 135 mmol/L (136-145)
[2023-03-02 09:13] VITALS: PULSE 87
[2023-03-02] MEDS: Ferrous Sulfate 325 MG Tablet PO ×2 (09:13→16:12)
[2023-03-02] MEDS: Tamsulosin HCl 0.4 MG Capsule PO (09:13)
[2023-03-02] MEDS: Ciprofloxacin 400 MG/200 ML BAG 200 MG IV ×2 (09:13→21:45)
[2023-03-02] MEDS: Metoprolol(XL)Succ 25 MG Tablet PO (09:13)
[2023-03-02] MEDS: Amiodarone 200 MG Tablet PO (09:14)
[2023-03-02 10:00] VITALS: BP 118/72; PULSE 88; RESP 16; TEMP 36.7; O2SAT 95
--- NOTE | 2023-03-02 13:52 | CASEMGMT ---
RN CM into pt room, pt sitting up in chair. Pt with confusion and unable to discuss dc planning. Pt speaking of grabbing something by the horns. TC to pt brother, no answer. APPLE ARCINIEGA to follow for dc planning.
[2023-03-02 15:21] VITALS: BP 126/62; PULSE 83; RESP 16; TEMP 36.6; O2SAT 96
[2023-03-02 20:07] VITALS: BP 123/64; PULSE 95; RESP 16; TEMP 36.6; O2SAT 95
[2023-03-02] MEDS: 0.9% Normal Saline (250mL Bag) 250 ML 15 ML IV (21:45)
[2023-03-02] MEDS: Atorvastatin Calcium 40 MG Tablet PO (21:46)
[2023-03-03 02:24] VITALS: BP 127/66; PULSE 88; RESP 16; TEMP 37; O2SAT 95
[2023-03-03] MEDS: Menthol/Lanolin/Calamine/Znox 113 GM Tube 1 APPLIC TOPICAL ×3 (06:34→21:47)
[2023-03-03] MEDS: Miconazole Nitrate 43 GM Bottle 1 APPLIC TOPICAL ×3 (06:34→21:46)
[2023-03-03 07:17] LABS: Absolute Neutrophil Count 7.2 X10^3/uL (2.0-7.7); Basophil# 0.03 X10^3/uL; Basophil% 0.3 % (0-1); Eosinophil# 0.19 X10^3/uL; Hematocrit 34.2 % (40-54); Hemoglobin 11.2 g/dL (13.0-16.5); Lymphocyte % 10.5 % (19-41); Mean Corp Hgb Conc 32.7 g/dL (32-36); Mean Corpuscular Hgb 32.2 pg (27.0-32.0); Mean Corpuscular Volume 98.3 fL (80-94); Mean Platelet Vol. 11.8 fl (6.2-12.0); Monocyte# 0.99 X10^3/uL; Monocyte% 10.4 % (0-10); NRBC Flagged by Analyzer 0 % (0-5); Neutrophil # 7.22 X10^3/uL (2.7-7.7); Neutrophil % 76.1 % (47-70); Platelet Count 160 K/mm3 (150-450); RBC Distribution Width CV 15.2 % (11.6-14.6); RBC Distribution Width SD 54.8 fl (35.1-43.9); Red Blood Count 3.48 M/mm3 (4.6-6.2); White Blood Count 9.5 K/mm3 (4.4-11.0)
[2023-03-03 07:43] LABS: Anion Gap 6 (5-15); BUN 46 mg/dL (7-18); Calcium,Total 8.1 mg/dL (8.5-10.1); Chloride 103 mmol/L (98-107); Creatinine, Serum 1.92 mg/dL (0.70-1.30); EST Glomerular Filtration Rate 36 mL/min (>60); Est Glom Filt Rate - Afr Amer 43 mL/min (>60); Glucose 109 mg/dL (74-106); Sodium Level 134 mmol/L (136-145)
--- NOTE | 2023-03-03 08:08 | PCM.PN.HOSP ---
Subjective Subjective Doing well, no issues overnight. He does seem a bit better today, and his white count is improving with the transition to Cipro to treat his Pseudomonas UTI Objective Data Objective Data Vital Signs: Vital Signs Temp Pulse Resp BP Pulse Ox O2 Del Method 98.6 F 88 16 127/66 H 95 Room Air 03/03/23 02:24 03/03/23 02:24 03/03/23 02:24 03/03/23 02:24 03/03/23 02:03/03/23 02:24 Oxygen Delivery Method Room Air Weight: 255 lb 11.779 oz Body Mass Index (BMI) 38.9 Intake & Output: Intake and Output for Last 24 Hours 03/02/23 03/03/23 03/04/23 03:59 03:59 03:59 Intake Total 550 / 550 869.5 / 869.5 50 / 50 Output Total 1000 / 1000 1250 / 1250 300 / 300 Balance -450 / -450 -380.5 / -380.5 -250 / -250 Lab / Micro Data 03/03/23 06:35 03/03/23 06:35 Labs: Laboratory Results - last 24 hr 03/02/23 07:00: Sodium 135 L, Potassium 4.2, Chloride 104, Carbon Dioxide 24.0, Anion Gap 7, BUN 40 H, Creatinine 2.29 H, Estim Creat Clear Calc 24.06, Est GFR (MDRD) Af Amer 35 L, Est GFR (MDRD) Non-Af 29 L, BUN/Creatinine Ratio 17.5, Glucose 116 H, Calcium 8.2 L 03/03/23 06:35: WBC 9.5, RBC 3.48 L, Hgb 11.2 L, Hct 34.2 L, MCV 98.3 H, MCH 32.2 H, MCHC 32.7, RDW Std Deviation 54.8 H, RDW Coeff of Olvin 15.2 H, Plt Count 160, MPV 11.8, Immature Gran % (Auto) 0.700, Neut % (Auto) 76.1 H, Lymph % (Auto) 10.5 L, [place] % (Auto) 10.4 H, Eos % (Auto) 2.0, Baso % (Auto) 0.3, Absolute Neuts (auto) 7.2, Absolute Lymphs (auto) 1.00, Nucleated RBC % 0, Sodium 134 L, Potassium 4.0, Chloride 103, Carbon Dioxide 25.0, Anion Gap 6, BUN 46 H, Creatinine 1.92 H, Estim Creat Clear Calc 28.70, Est GFR (MDRD) Af Amer 43 L, Est GFR (MDRD) Non-Af 36 L, BUN/Creatinine Ratio 24.0 H, Glucose 109 H, Calcium 8.1 L Micro: Microbiology 02/27/23 23:30 Urine, Catheterized Urine Culture - Final Pseudomonas aeruginosa Physical Exam Narrative General: Alert, Oriented x2, Cooperative, No apparent distress HEENT: Atraumatic, PERRLA, EOMI, Normocephalic Oral: Moist Mucosa Neck: Supple, No JVD Lungs: Diminished, Normal air movement, No rhonchi, No wheeze, No rales Cardiovascular: Regular rate, Regular Rhythm, Normal S1, Normal S2, No murmurs Abdomen: Soft, Non Tender, Non-Distended, No Hepato-splenomegaly Extremities: No edema, Capillary Refill Less than 3 Seconds Skin: No rashes, No breakdown Musculoskeletal: No Tenderness to Palpation of Joints or Extremities Neurological: Motor Exam 5/5 strength throughout, Sensory exam intact to light touch and pain Psych/Mental Status: Flat affect Assessment & Plan Assessment/Plan (1) Urinary tract infection: QUALIFIERS: Urinary tract infection type: acute cystitis Hematuria presence: without hematuria Qualified Code(s): N30.00 - Acute cystitis without hematuria (2) Debility: (3) Generalized weakness: PLAN: Plan 1. Debility and metabolic encephalopathy from a pseudomonal UTI with hematuria ? Pansensitive Pseudomonas Pseudomonas therefore will transition from Rocephin to Cipro ? PT/OT evaluation ? With initiation of Cipro his hematuria does appear to have resolved, will still hold his Eliquis for the next 24 to 48 hours 2. HTN/HLD/chronic diastolic CHF/chronic A-fib ? We will hold his Eliquis secondary to hematuria ? Can resume all of his home blood pressure medications ? We will monitor and make adjustments as necessary 3. BPH ? Continue with Medina at this time given his hematuria ? Continue with Flomax DVT: SCDs Charges/Coding Visit Charges Inpatient E&M: 73708 Subs Hosp L2
[2023-03-03] MEDS: Ferrous Sulfate 325 MG Tablet PO ×2 (08:28→17:19)
[2023-03-03 08:30] VITALS: BP 125/74; PULSE 97; RESP 16; TEMP 36.8; O2SAT 93
[2023-03-03 08:31] VITALS: PULSE 97
[2023-03-03] MEDS: Amiodarone 200 MG Tablet PO (08:31)
[2023-03-03] MEDS: Tamsulosin HCl 0.4 MG Capsule PO (08:31)
[2023-03-03] MEDS: Metoprolol(XL)Succ 25 MG Tablet PO (08:31)
[2023-03-03] MEDS: Ciprofloxacin 400 MG/200 ML BAG 200 MG IV ×2 (08:32→21:47)
[2023-03-03 14:30] VITALS: BP 118/72; PULSE 82; RESP 18; TEMP 36.7; O2SAT 94
[2023-03-03 19:44] VITALS: BP 123/69; PULSE 87; RESP 18; TEMP 36.9; O2SAT 94
[2023-03-03] MEDS: Atorvastatin Calcium 40 MG Tablet PO (21:47)
[2023-03-04 02:23] VITALS: BP 123/69; PULSE 85; RESP 16; TEMP 36.8; O2SAT 94
[2023-03-04 06:01] LABS: Absolute Lymphocyte Count 0.69 X10^3/uL (0.83-4.51); Absolute Neutrophil Count 6.3 X10^3/uL (2.0-7.7); Basophil# 0.03 X10^3/uL; Basophil% 0.4 % (0-1); Eosinophil# 0.13 X10^3/uL; Eosinophils% 1.6 % (0-5); Lymphocyte # 0.69 X10^3/ul (0.83-4.51); Lymphocyte % 8.5 % (19-41); Mean Corp Hgb Conc 32.4 g/dL (32-36); Mean Corpuscular Hgb 31.8 pg (27.0-32.0); Mean Corpuscular Volume 98.3 fL (80-94); Mean Platelet Vol. 11.5 fl (6.2-12.0); Monocyte# 0.92 X10^3/uL; Monocyte% 11.3 % (0-10); NRBC Flagged by Analyzer 0 % (0-5); Neutrophil # 6.28 X10^3/uL (2.7-7.7); Neutrophil % 77.2 % (47-70); Platelet Count 160 K/mm3 (150-450); RBC Distribution Width CV 14.9 % (11.6-14.6); RBC Distribution Width SD 54.4 fl (35.1-43.9); Red Blood Count 3.46 M/mm3 (4.6-6.2); White Blood Count 8.1 K/mm3 (4.4-11.0)
[2023-03-04] MEDS: Menthol/Lanolin/Calamine/Znox 113 GM Tube 1 APPLIC TOPICAL ×3 (06:22→22:24)
[2023-03-04] MEDS: Miconazole Nitrate 43 GM Bottle 1 APPLIC TOPICAL ×3 (06:22→22:23)
[2023-03-04 07:13] LABS: Anion Gap 6 (5-15); BUN 41 mg/dL (7-18); BUN/Creat Ratio 25.3 RATIO (10-20); Chloride 104 mmol/L (98-107); Creatinine, Serum 1.62 mg/dL (0.70-1.30); EST Glomerular Filtration Rate 44 mL/min (>60); Est Glom Filt Rate - Afr Amer 53 mL/min (>60); Estimated Creatinine Clearance 34.01 ml/min; Glucose 116 mg/dL (74-106); Potassium 3.8 mmol/L (3.5-5.1); Sodium Level 135 mmol/L (136-145)
[2023-03-04 07:55] VITALS: BP 133/68; PULSE 77; RESP 18; TEMP 36.3; O2SAT 94
[2023-03-04 07:59] VITALS: PULSE 77
[2023-03-04] MEDS: Ferrous Sulfate 325 MG Tablet PO ×2 (07:59→16:57)
[2023-03-04] MEDS: Amiodarone 200 MG Tablet PO (07:59)
[2023-03-04] MEDS: Metoprolol(XL)Succ 25 MG Tablet PO (07:59)
[2023-03-04] MEDS: Tamsulosin HCl 0.4 MG Capsule PO ×2 (07:59→19:19)
--- NOTE | 2023-03-04 10:54 | CASEMGMT ---
Social Work PT is recommending additional therapy/SNF. Patient has been confused and has been able to understand d/c planning. SW called patient's son, Duran, to discuss discharge planning. SW discussed list of providers according to insurance, son declined list and reports patient has been to [facility] previously and would like to return to [facility] if possible. JACKIE referred patient to [facility] via [facility]. Plan: Patient referred to [facility] for SNF, pending review. Sonia Walters TRAINING SPECIALIST, KENNEL SUPERVISOR
[2023-03-04 14:17] VITALS: BP 140/79; PULSE 79; RESP 18; TEMP 36.4; O2SAT 98
--- NOTE | 2023-03-04 16:21 | CASEMGMT ---
Social Work Pt accepted to [facility]. Pt notified and is agreeable. [facility] requested solomon to be removed if possible. SW notified Dr. Boone and he reviewed. . to have solomon removed. [facility] is in agreement to take patient tomorrow. Plan: Patient to discharge to [facility] 03/05/2023 Sonia Walters STAIN SPRAYER, [employer]NER
--- NOTE | 2023-03-04 18:28 | PCM.PN.HOSP ---
Reason for Visit Reason for Visit: Diagnoses Acute cystitis without hematuria (02/28/23) Weakness (02/28/23) Other malaise (02/28/23) Subjective Subjective Patient was seen and examined today, he appeared confused today but was able to answer some simple questions appropriately. We have received approval for him to go to an extended care facility but they request the patient not be discharged until tomorrow. In the meantime I have elected to discontinue his Medina catheter, there is no signs of gross hematuria at this time and his hemoglobin is 11. Objective Data Objective Data Vital Signs: Vital Signs Temp Pulse Resp BP Pulse Ox O2 Del Method 97.6 F L 79 18 140/79 H 98 Room Air 03/04/23 14:17 03/04/23 14:17 03/04/23 14:17 03/04/23 14:17 03/04/23 14:17 03/04/23 14:17 Oxygen Delivery Method Room Air Weight: 116 kg Body Mass Index (BMI) 38.9 Intake & Output: Intake and Output for Last 24 Hours 03/02/23 03/03/23 03/04/23 23:59 23:59 23:59 Intake Total 819.5 / 869.5 1100 / 1100 200 / 200 Output Total 1500 / 1800 1420 / 1420 1250 / 1250 Balance -680.5 / -930.5 -320 / -320 -1050 / -1050 Lab / Micro Data 03/04/23 05:32 03/04/23 05:32 Labs: Laboratory Results - last 24 hr 03/04/23 05:32: WBC 8.1, RBC 3.46 L, Hgb 11.0 L, Hct 34.0 L, MCV 98.3 H, MCH 31.8, MCHC 32.4, RDW Std Deviation 54.4 H, RDW Coeff of Olvin 14.9 H, Plt Count 160, MPV 11.5, Immature Gran % (Auto) 1.000 H, Neut % (Auto) 77.2 H, Lymph % (Auto) 8.5 L, [place] % (Auto) 11.3 H, Eos % (Auto) 1.6, Baso % (Auto) 0.4, Absolute Neuts (auto) 6.3, Absolute Lymphs (auto) 0.69 L, Nucleated RBC % 0, Sodium 135 L, Potassium 3.8, Chloride 104, Carbon Dioxide 25.0, Anion Gap 6, BUN 41 H, Creatinine 1.62 H, Estim Creat Clear Calc 34.01, Est GFR (MDRD) Af Amer 53 L, Est GFR (MDRD) Non-Af 44 L, BUN/Creatinine Ratio 25.3 H, Glucose 116 H, Calcium 8.0 L Micro: Microbiology 02/27/23 23:30 Urine, Catheterized Urine Culture - Final Pseudomonas aeruginosa Physical Exam Const alert and no apparent distress Constitutional Narrative: Patient is alert with mild confusion exhibited General Appearance: cooperative, well kempt and well developed Orientation / Consciousness: awake and oriented to person HEENT normocephalic, head/scalp atraumatic and moist oral mucous membranes Eyes PERRL, EOMs intact bilaterally and conjunctivae normal Neck supple, no JVD, thyroid normal and no carotid bruits General: trachea midline Resp normal respiratory effort, no retractions, no use of accessory muscles and clear to auscultation bilaterally Auscultation: Negative for rales, rhonchi or wheezes Cardio S1 normal heart sound, S2 normal heart sound, no murmurs, no rub and no gallops Cardio Narrative: Heart rate and rhythm is irregular GI normal to inspection, nondistended, normoactive bowel sounds, soft to palpation, non-tender and non-distended Extremity no clubbing, cyanosis or edema Skin no rashes or lesions noted General Skin Exam: no breakdown Neuro CN's II-XII intact bilaterally, moves all extremities, no focal motor deficits and no sensory deficits noted Sensorium / Orientation: awake, alert and oriented to person Speech: speech normal Psych Psych Narrative: Patient exhibits mild confusion Assessment & Plan Assessment/Plan (1) Urinary tract infection: QUALIFIERS: Urinary tract infection type: acute cystitis Hematuria presence: without hematuria Qualified Code(s): N30.00 - Acute cystitis without hematuria PLAN: Plan 1. Acute cystitis secondary to Pseudomonas-patient was placed on Cipro for his urinary tract infection, patient's CBC was unremarkable today #2 metabolic encephalopathy-secondary to acute cystitis-continue to provide supportive care, patient will need to go to an extended care facility for short-term rehab services #3 essential hypertension-patient will remain on his current medications #4 chronic atrial fibrillation-patient has been off his Eliquis secondary to hematuria #5 BPH-patient's Flomax will be increased to 0.8 mg daily, his Medina catheter was removed today #6 chronic kidney disease stage IIIb-monitor, evaluate, assess, and treat Total clinical time spent by myself addressing the patient's medical issues, reviewing all of his data, and collaborating with patient's care team: 35 minutes Charges/Coding Visit Charges Inpatient E&M: 30221 Subs Hosp L2
[2023-03-04 22:21] VITALS: BP 172/70; PULSE 81; RESP 22; TEMP 36.7; O2SAT 94
[2023-03-04] MEDS: Ciprofloxacin 250 MG Tablet PO (22:23)
[2023-03-04] MEDS: Atorvastatin Calcium 40 MG Tablet PO (22:23)
--- NOTE | 2023-03-04 23:13 | NURSING ---
Refused to be turned.
[2023-03-05 02:44] VITALS: BP 173/96; PULSE 71; RESP 22; TEMP 36.4; O2SAT 94
[2023-03-05] MEDS: Menthol/Lanolin/Calamine/Znox 113 GM Tube 1 APPLIC TOPICAL (03:03)
[2023-03-05] MEDS: Miconazole Nitrate 43 GM Bottle 1 APPLIC TOPICAL (03:03)
[2023-03-05 07:59] VITALS: BP 148/64; PULSE 73; RESP 16; TEMP 36.7; O2SAT 93
[2023-03-05] MEDS: Ferrous Sulfate 325 MG Tablet PO (08:09)
[2023-03-05 11:17] VITALS: PULSE 73
[2023-03-05] MEDS: Ciprofloxacin 250 MG Tablet PO (11:17)
[2023-03-05] MEDS: Amiodarone 200 MG Tablet PO (11:17)
[2023-03-05] MEDS: Metoprolol(XL)Succ 25 MG Tablet PO (11:17)
--- NOTE | 2023-03-05 11:52 | PCM.TXEXTCAR ---
Diet Diet Order/Speech Therapy: 03/02/23 14:07 Diet: Regular - General Food consistency:: Easy to Chew Liquid Consistency:: Regular/Thin Type of Dietary Supplement:: Ensure Plus High Protein Is pt able to select menu?: No Diet Comments: Distant supervision, meds in , 120cc ensure Routine Orders/Code Status Routine Lab Work: BMP (in one week) and UA (in one week, include urine culture) Code Status: Full Code Wound(s) buttocks: Wound Type: shearing with some deep tissue pressure injury Therapies Weight Bearing: Full weight bearing Physical Therapy: Eval and Treat Occupational Therapy: Eval and Treat Problem/Diagnosis (1) Urinary tract infection: Status: Acute Code(s): N39.0 - Urinary tract infection, site not specified Plan 1. Acute cystitis secondary to Pseudomonas-patient was placed on Cipro for his urinary tract infection, patient's CBC was unremarkable today #2 metabolic encephalopathy-secondary to acute cystitis-continue to provide supportive care, patient will need to go to an extended care facility for short-term rehab services #3 essential hypertension-patient will remain on his current medications #4 chronic atrial fibrillation-patient has been off his Eliquis secondary to hematuria #5 BPH-patient's Flomax will be increased to 0.8 mg daily, his Medina catheter was removed today #6 chronic kidney disease stage IIIb-monitor, evaluate, assess, and treat Total clinical time spent by myself addressing the patient's medical issues, reviewing all of his data, and collaborating with patient's care team: 35 minutes Allergies/Procedures Done in Hospital Allergies No Known Allergies Allergy (Verified 02/27/23 20:24) Procedures: None Type of Care/Length of Stay Estimated LOS: Convalescent Care Less Than 30 days Type of Care Needed: Skilled Rehab Potential: Good Prognosis: Good Additional Orders/Day of Discharge H&P will serve as current which was dated: 02/28/23 Day of Discharge: 03/05/23 Dietary and Speech Recommendations Dietitian Recommendations/Changes: Continue cardiac diet to manage medical conditions. Will continue EPHP to ensure adequate PO intakes. Discharge Plan Admission Admit Date/Time: 02/28/23 00:22 Primary Reason for Your Visit: hematuria, encephalopathy, debility Attending Provider: Tj Boone Primary Care Provider: Kodak Hernandez Consulting Providers: Luis F Dallsa; Boone Abraham Instructions Additional Instructions / Restrictions: Patient's Eliquis can be restarted in 2 weeks at 2.5 mg twice daily, watch for any sign of hematuria If patient has any sign of blood in the urine on a UA or grossly, he will need referral to a urologist Discharge Orders/Prescriptions Prescriptions: New acetaminophen 325 mg Tablet 650 mg PO Q6H PRN PRN (Reason: Pain 1-10 Or Fever>100.7) Qty: 0 0RF miconazole nitrate [Desenex] 2 % Powder 1 applic topical TID Qty: 0 0RF Protocol: *Topical Application Instructions APPLICATION INSTRUCTIONS: Groin/Abd folds ciprofloxacin HCl 250 mg Tablet 250 mg PO BID Qty: 0 0RF Rx Instructions: continue for five days(eleven doses total), then discontinue tamsulosin 0.4 mg Capsule 0.8 mg PO DAILY@1730 Qty: 0 0RF menthol-zinc oxide [Calmoseptine] 0.44-20.6 % Ointment 1 applic topical TID Qty: 0 0RF Protocol: *Topical Application Instructions APPLICATION INSTRUCTIONS: Buttocks/Groin/Abd folds Continued atorvastatin 40 mg tablet 40 mg PO QHS amiodarone [Pacerone] 200 mg tablet 200 mg PO DAILY Gemtesa 75 mg tablet 75 mg PO DAILY ferrous sulfate [FeroSul] 325 mg (65 mg iron) tablet 325 mg PO BID metoprolol succinate 25 mg tablet extended release 24 hr 25 mg PO DAILY Qty: 90 3RF Discontinued tamsulosin 0.4 mg capsule 0.4 mg PO DAILY Eliquis 5 mg tablet 5 mg PO BID Ultra CoQ10 75 mg capsule 75 mg PO DAILY torsemide 10 mg tablet 10 mg PO DAILY PRN (Reason: edema) potassium chloride 10 mEq capsule, extended release 10 meq PO BID Qty: 180 3RF Referrals / Follow Up: Kodak Hernandez MD [Primary Care Provider] - Disposition Disposition (needs filled in before D/C Order can be placed): [facility] ([facility]) Urinary tract infection Qualifiers: Urinary tract infection type: acute cystitis Hematuria presence: without hematuria Qualified Code(s): N30.00 - Acute cystitis without hematuria
--- NOTE | 2023-03-05 12:01 | PCM.DC.SUM ---
Providers Date of Admission: 02/28/23 Date of Discharge: 03/05/23 Primary Care Physician: Dr. Kodak Hernandez MD Consultations 03/05/23 04:30 Consult: Onc/Wound/marriage counselor Routine Comment: Reason for Consult:: pressure ulcer on buttocks Reason For Visit: UTI; ENCEPHALOPATHY, DEBILITY Diagnosis Discharge Diagnosis (1) Urinary tract infection: Status: Acute Code(s): N39.0 - Urinary tract infection, site not specified Qualifiers: Hematuria presence: without hematuria Urinary tract infection type: acute cystitis Qualified Code(s): N30.00 - Acute cystitis without hematuria Plan 1. Acute cystitis secondary to Pseudomonas-patient was placed on Cipro for his urinary tract infection, patient's CBC was unremarkable today #2 metabolic encephalopathy-secondary to acute cystitis-continue to provide supportive care, patient will need to go to an extended care facility for short-term rehab services #3 essential hypertension-patient will remain on his current medications #4 chronic atrial fibrillation-patient has been off his Eliquis secondary to hematuria #5 BPH-patient's Flomax will be increased to 0.8 mg daily, his Medina catheter was removed today #6 chronic kidney disease stage IIIb-monitor, evaluate, assess, and treat #7 hematuria secondary to acute cystitis Total clinical time spent by myself addressing the patient's medical issues, reviewing all of his data, and collaborating with patient's care team: 35 minutes Medications at Discharge Home Medications atorvastatin 40 mg tablet 40 mg PO QHS cholesterol 01/25/22 metoprolol succinate 25 mg tablet,extended release 24 hr 25 mg PO DAILY blood pressur #90 tabs 09/18/22 amiodarone 200 mg tablet (Pacerone) 200 mg PO DAILY heart 02/28/23 ferrous sulfate 325 mg (65 mg iron) tablet (FeroSul) 325 mg PO BID anemia 02/28/23 vibegron 75 mg tablet (Gemtesa) 75 mg PO DAILY see pcp 02/28/23 acetaminophen 325 mg tablet 650 mg (2 x 325 mg) PO Q6H PRN PRN Pain 1-10 Or Fever>100.7 #0 tabs 03/05/23 ciprofloxacin HCl 250 mg tablet 250 mg PO BID #0 tabs 03/05/23 menthol 0.44 %-zinc oxide 20.6 % topical ointment (Calmoseptine) 1 applic topical TID #0 grams 03/05/23 miconazole nitrate 2 % topical powder (Desenex) 1 applic topical TID #0 grams 03/05/23 tamsulosin 0.4 mg capsule 0.8 mg (2 x 0.4 mg) PO DAILY@1730 #0 caps 03/05/23 Hospital Course Operations None Procedures None Summary of Care Provided Minutes Spent on Discharge: 31 Hospital Course: This 82-year-old white male was seen in the emergency room at [facility] with complaints of generalized weakness, malaise, and fatigue. Family member stated that the patient had been intermittently confused over the past 2 weeks as well. Work-up in the emergency room included an EKG which showed the patient to be in atrial fibrillation at a rate of 101, there is no ischemic changes noted, chest x-ray showed no evidence of pneumonia, Medina catheter was placed in the ER and the patient was given a fluid bolus. Labs showed an elevated creatinine of 1.39 and BUN was 25, his white blood cell count was normal. Urinalysis showed positive nitrite, over 100 WBCs and 10-25 RBCs, urine leukocyte Estrace was high and urine bacteria was +2. Patient was admitted for metabolic encephalopathy and urinary tract infection, patient was placed on IV fluids and IV antibiotics, urine culture grew out Pseudomonas, antibiotics were adjusted. Patient remained weakened and confused at times, he was seen by PT and OT and it was felt beneficial that he would go to a [facility] facility for short-term rehab services, patient's son agreed with this. On 03/05/2023, patient was seen and examined:alert and no apparent distress Constitutional Narrative: Patient is alert with mild confusion exhibited General Appearance: cooperative, well kempt and well developed Orientation / Consciousness: awake and oriented to person HEENT normocephalic, head/scalp atraumatic and moist oral mucous membranes Eyes PERRL, EOMs intact bilaterally and conjunctivae normal Neck supple, no JVD, thyroid normal and no carotid bruits General: trachea midline Resp normal respiratory effort, no retractions, no use of accessory muscles and clear to auscultation bilaterally Auscultation: Negative for rales, rhonchi or wheezes Cardio S1 normal heart sound, S2 normal heart sound, no murmurs, no rub and no gallops Cardio Narrative: Heart rate and rhythm is irregular GI normal to inspection, nondistended, normoactive bowel sounds, soft to palpation, non-tender and non-distended Extremity no clubbing, cyanosis or edema Skin no rashes or lesions noted General Skin Exam: no breakdown Neuro CN's II-XII intact bilaterally, moves all extremities, no focal motor deficits and no sensory deficits noted Sensorium / Orientation: awake, alert and oriented to person Speech: speech normal Psych Psych Narrative: Patient exhibits mild confusion Patient was transferred to an extended care facility in stable condition on 03/05/2023. Weight / BMI Weight Weight: 116 kg Body Mass Index (BMI) 38.9 ABG / Lab / Microbiology Data 03/04/23 05:32 03/04/23 05:32 Microbiology: Microbiology 02/27/23 23:30 Urine, Catheterized Urine Culture - Final Pseudomonas aeruginosa Meaningful Use Info Meaningful Use Diagnoses (Choose all that apply): None applicable Discharge Plan Admission Admit Date/Time: 02/28/23 00:22 Primary Reason for Your Visit: hematuria, encephalopathy, debility Attending Provider: Tj Boone Primary Care Provider: Kodak Hernandez Consulting Providers: Luis F Dallas; Boone Abraham Instructions Additional Instructions / Restrictions: Patient's Eliquis can be restarted in 2 weeks at 2.5 mg twice daily, watch for any sign of hematuria If patient has any sign of blood in the urine on a UA or grossly, he will need referral to a urologist Discharge Orders/Prescriptions Prescriptions: New acetaminophen 325 mg Tablet 650 mg PO Q6H PRN PRN (Reason: Pain 1-10 Or Fever>100.7) Qty: 0 0RF miconazole nitrate [Desenex] 2 % Powder 1 applic topical TID Qty: 0 0RF Protocol: *Topical Application Instructions APPLICATION INSTRUCTIONS: Groin/Abd folds ciprofloxacin HCl 250 mg Tablet 250 mg PO BID Qty: 0 0RF Rx Instructions: continue for five days(eleven doses total), then discontinue tamsulosin 0.4 mg Capsule 0.8 mg PO DAILY@1730 Qty: 0 0RF menthol-zinc oxide [Calmoseptine] 0.44-20.6 % Ointment 1 applic topical TID Qty: 0 0RF Protocol: *Topical Application Instructions APPLICATION INSTRUCTIONS: Buttocks/Groin/Abd folds Continued atorvastatin 40 mg tablet 40 mg PO QHS amiodarone [Pacerone] 200 mg tablet 200 mg PO DAILY Gemtesa 75 mg tablet 75 mg PO DAILY ferrous sulfate [FeroSul] 325 mg (65 mg iron) tablet 325 mg PO BID metoprolol succinate 25 mg tablet extended release 24 hr 25 mg PO DAILY Qty: 90 3RF Discontinued tamsulosin 0.4 mg capsule 0.4 mg PO DAILY Eliquis 5 mg tablet 5 mg PO BID Ultra CoQ10 75 mg capsule 75 mg PO DAILY torsemide 10 mg tablet 10 mg PO DAILY PRN (Reason: edema) potassium chloride 10 mEq capsule, extended release 10 meq PO BID Qty: 180 3RF Referrals / Follow Up: Kodak Hernandez MD [Primary Care Provider] - Disposition Disposition (needs filled in before D/C Order can be placed): [facility] Facility Charges/Coding Visit Charges Inpatient E&M: 83151 Disch Hosp >30min
--- NOTE | 2023-03-05 12:32 | CASEMGMT ---
Discharge Planning Discharge orders, signed med list, and transport time sent to [facility] via [facility]. [facility] will tranport patient by wheelchair at 2p. Nursing, SW, and patient updated. A vm was left for patients son. Sara Sutton, Discharge Planning Asst.
== END 2023-03-05 14:27 | disposition skilled nursing facility (03) | DRG 689 ==
LOC: ED 23:20 → MS3 02-28 02:37
PROVIDERS: Family Medicine; Admitting Provider Hospitalist; Emergency Provider Emergency Medicine; PCP Family Medicine; Visit Provider Internal Medicine
DX: N30.01 Acute cystitis with hematuria (principal); G93.41 Metabolic encephalopathy; I13.0 Hypertensive heart and chronic kidney disease with heart failure and stage 1 through stage 4 chronic kidney disease, or unspecified chronic kidney disease; I48.20 Chronic atrial fibrillation, unspecified; I50.32 Chronic diastolic (congestive) heart failure; N18.32 Chronic kidney disease, stage 3b; I11.0 Hypertensive heart disease with heart failure; E78.5 Hyperlipidemia, unspecified; I25.10 Atherosclerotic heart disease of native coronary artery without angina pectoris; Z95.5 Presence of coronary angioplasty implant and graft; Z79.01 Long term (current) use of anticoagulants; R53.1 Weakness; B96.5 Pseudomonas (aeruginosa) (mallei) (pseudomallei) as the cause of diseases classified elsewhere
CPT/HCPCS: 36415; 51702; 71045; 80048; 80053; 81001; 83605; 84484; 85025; 87077; 87086; 87088; 87184; 87186; 92526; 92610; 93005; 97110; 97162; 97166; 97530; 97535; 97802; 99284; J7030; J7050; A4216; J0744

== ENCOUNTER → 2023-05-16 | Outpatient (CLI) | payer MEDICARE, SELFPAY ==
[2023-05-16 13:23] LABS: Absolute Lymphocyte Count 1.18 X10^3/uL (0.83-4.51); Absolute Neutrophil Count 4.1 X10^3/uL (2.0-7.7); Basophil# 0.03 X10^3/uL; Basophil% 0.5 % (0-1); Eosinophil# 0.06 X10^3/uL; Hematocrit 38.1 % (40-54); Lymphocyte # 1.18 X10^3/ul (0.83-4.51); Lymphocyte % 19.8 % (19-41); Mean Corp Hgb Conc 31.5 g/dL (32-36); Mean Corpuscular Hgb 31.6 pg (27.0-32.0); Mean Corpuscular Volume 100.3 fL (80-94); Mean Platelet Vol. 11.2 fl (6.2-12.0); Monocyte# 0.63 X10^3/uL; Monocyte% 10.6 % (0-10); NRBC Flagged by Analyzer 0 % (0-5); Neutrophil # 4.05 X10^3/uL (2.7-7.7); Neutrophil % 67.8 % (47-70); Platelet Count 178 K/mm3 (150-450); RBC Distribution Width CV 14.4 % (11.6-14.6)
[2023-05-16 14:02] LABS: BNP,B-Type NATRIURETIC PEPTIDE 169.9 pg/mL (0-100)
[2023-05-16 14:08] LABS: Anion Gap 2 (5-15); BUN 38 mg/dL (7-18); Calcium,Total 8.9 mg/dL (8.5-10.1); Chloride 106 mmol/L (98-107); Creatinine, Serum 1.41 mg/dL (0.70-1.30); EST Glomerular Filtration Rate 51 mL/min (>60); Est Glom Filt Rate - Afr Amer 62 mL/min (>60); Glucose 100 mg/dL (74-106); Potassium 4.1 mmol/L (3.5-5.1); Sodium Level 141 mmol/L (136-145)
== END | disposition home or self-care (01) ==
LOC: LABSPEC 12:32 → LAB 12:37
PROVIDERS: PCP Family Medicine; Referring Provider Nurse Practitioner Family; Visit Provider Nurse Practitioner Family
DX: R06.09 Other forms of dyspnea (principal); I50.30 Unspecified diastolic (congestive) heart failure; I34.0 Nonrheumatic mitral (valve) insufficiency; Z98.890 Other specified postprocedural states
CPT/HCPCS: 36415; 80048; 83880; 85025

== ENCOUNTER → 2023-06-18 | Outpatient (CLI) | payer MEDICARE, SELFPAY ==
--- NOTE | 2023-06-18 10:36 | ECHOD_ITS ---
Reason For Study: SOB, Edema, MV Clip Procedure This was a 2D Doppler, Color Flow transthoracic echocardiogram. Exam performed in department. Left Ventricle Normal LV size. Mild concentric left ventricular hypertrophy. Left ventricular systolic function is normal. The estimated ejection fraction is 55 %. No regional wall motion abnormalities noted. Right Ventricle Normal RV size. Normal systolic function. Atria The left atrium is severely enlarged. The right atrium is mildly enlarged. Mitral Valve Bileaflet diffuse mitral valve thickening. Mitral valve clip. Mild-Moderate (1-2+) eccentric mitral valve insufficiency. Tricuspid Valve Normal tricuspid valve. Moderate (2+) tricuspid valve insufficiency. Pulmonary artery systolic pressure is 60 mmHg. Moderate pulmonary hypertension. Aortic Valve Trisinus/trileaflet aortic valve. Mild focal aortic valve thickening. Pulmonic Valve Normal pulmonic valve. Great Vessels Normal aortic root. The pulmonary artery is normal size. Normal inferior vena cava. Pericardium/Pleural No pericardial effusion. MMode/2D Measurements & Calculations LVIDd: 5.3 cm IVSd: 1.2 cm Ao root diam: 3.8 cm LVIDs: 3.7 cm LVPWd: 1.4 cm FS: 29.5 % LAV(MOD-bp): 160.9 ml LVAd ap4: 38.6 cm2 LVAd ap2: 38.4 cm2 LAV(MOD-bp) Indexed: 71.9 ml/m2 LVLd ap4: 8.6 cm LVLd ap2: 8.9 cm LAV(MOD-sp2): 142.2 ml EDV(MOD-sp4): 146.0 ml EDV(MOD-sp2): 138.5 ml LAV(MOD-sp4): 174.3 ml EDV(sp4-el): 147.3 ml EDV(sp2-el): 140.6 ml LVAs ap4: 25.8 cm2 LVAs ap2: 29.4 cm2 LVLs ap4: 7.9 cm LVLs ap2: 8.4 cm ESV(MOD-sp4): 71.4 ml ESV(MOD-sp2): 88.9 ml ESV(sp4-el): 71.8 ml ESV(sp2-el): 86.9 ml EF(MOD-sp4): 51.1 % EF(MOD-sp2): 35.8 % EF(sp4-el): 51.3 % SV(MOD-sp4): 74.7 ml SV(MOD-sp2): 49.6 ml SV(sp4-el): 75.5 ml LA dimension(2D): 6.2 cm LA A4 area: 42.8 cm2 RA A4 area: 26.1 cm2 Doppler Measurements & Calculations MV E max homer: 149.1 cm/sec Lat Peak E' Homer: 9.1 cm/sec Med Peak E' Homer: 8.0 cm/sec E/E' lat: 16.4 E/E' med: 18.6 MV V2 max: 186.1 cm/sec MV P1/2t max homer: 153.4 cm/sec Ao V2 max: 108.4 cm/sec MV max P.9 mmHg MV P1/2t: 86.8 msec Ao max P.7 mmHg MV V2 mean: 92.9 cm/sec MV dec slope: 517.6 cm/sec2 MV mean P.5 mmHg MV V2 VTI: 32.7 cm MVA(P1/2t): 2.5 cm2 LV V1 max: 84.0 cm/sec PA V2 max: 78.4 cm/sec TR max homer: 370.0 cm/sec LV V1 max P.8 mmHg TR max P.8 mmHg ECHO/Echo Complete Interpretation Summary Normal LV size. Mild concentric left ventricular hypertrophy. The left atrium is severely enlarged. Left ventricular systolic function is normal. The estimated ejection fraction is 55 %. Pulmonary artery systolic pressure is 60 mmHg. Moderate pulmonary hypertension. No regional wall motion abnormalities noted. Mitral valve clip Ordering Physician: Kodak Lawler Referring Physician: Kodak Hernandez Performed By: Kindra Joyner RDCS
== END | disposition home or self-care (01) ==
PROVIDERS: PCP Family Medicine; Referring Provider Nurse Practitioner Family; Visit Provider Nurse Practitioner Family
DX: R06.09 Other forms of dyspnea (principal); Z98.890 Other specified postprocedural states
CPT/HCPCS: 93306

== ENCOUNTER → 2023-06-25 | Outpatient (CLI) | payer MEDICARE, SELFPAY ==
[2023-06-25 15:11] LABS: Anion Gap 0 (5-15); BUN 31 mg/dL (7-18); BUN/Creat Ratio 19.3 RATIO (10-20); Calcium,Total 9.1 mg/dL (8.5-10.1); Chloride 104 mmol/L (98-107); Creatinine, Serum 1.61 mg/dL (0.70-1.30); EST Glomerular Filtration Rate 44 mL/min (>60); Est Glom Filt Rate - Afr Amer 53 mL/min (>60); Glucose 101 mg/dL (74-106); PSA,Total- Diagnostic < 0.01 ng/mL (0.0-4.0); Potassium 4.6 mmol/L (3.5-5.1); Sodium Level 140 mmol/L (136-145)
== END | disposition home or self-care (01) ==
LOC: LAB 14:06
PROVIDERS: Nurse Practitioner Family; PCP Family Medicine; Referring Provider Nurse Practitioner; Visit Provider Nurse Practitioner
DX: C61 Malignant neoplasm of prostate (principal); I50.30 Unspecified diastolic (congestive) heart failure; R06.09 Other forms of dyspnea; E87.6 Hypokalemia
CPT/HCPCS: 36415; 80048; 84153

== ENCOUNTER → 2023-06-26 | Outpatient (CLI) | payer MEDICARE, SELFPAY ==
--- NOTE | 2023-06-26 07:36 | CT_ITS ---
STUDY: CT ABDOMEN AND PELVIS WITH CONTRAST REASON FOR EXAM: Male, 83 years old. Malignant neoplasm of prostate RADIATION DOSAGE (If Supplied By Facility): CTDIvol = ( 19.91 ) mGy, DLP = ( 1344.35 ) mGycm TECHNIQUE: Transaxial images were obtained from the dome of the diaphragm to the symphysis pubis without oral contrast. IV 100mL Isovue-370 was administered. Sagittal and coronal images were reconstructed. Individualized dose optimization techniques were used for this CT. COMPARISON: None. FINDINGS: The visualized lung bases are unremarkable. Coronary artery calcification. Calcification of the mitral valve annulus. Distended left atrium. Normal liver. Small layering gallstones along the dependent portion of the gallbladder lumen. There is a 8.4 mm rounded low density in the peripheral lateral aspect of the spleen superiorly. This may represent a small cyst. Normal pancreas. Normal bilateral adrenal glands. Multiple right renal cysts. There is a nonobstructive 3.4 mm calculus in the midpole calyx of the right kidney. Cysts are seen in the upper pole of the left kidney. The largest cyst measures 3.8 cm x 2.8 cm. There is also evidence of left parapelvic cysts. Normal visualized stomach. Normal small intestine. There are multiple colonic diverticula consistent with diverticulosis. The appendix is visualized and appears normal. There is diffuse atherosclerotic calcification of the abdominal aorta and its major visceral branches, without a demonstrated aneurysm. Normal inferior vena cava. Normal retroperitoneum. Diffuse bladder wall thickening. There is evidence of a 2.1 cm x 1.6 cm diverticulum along the posterior right side of the bladder. 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 The patient is status post TURP. Normal abdominal wall. There are degenerative changes of the visualized lumbar spine. Grade 1 anterior listhesis of L5 on S1 with spondylolysis of the pars interarticularis of the L5 vertebrae. CT/Abdomen/Pelvis WITH Contrast IMPRESSION: Diffuse bladder wall thickening. Small diverticulum along the posterior lateral aspect of the right side of the bladder. Prior TURP with metallic seeds seen within the prostate. Bilateral renal cysts. Extensive atherosclerotic changes of the abdominal aorta and the visceral branches. Layering gallstones. Electronically Signed: Joce Freitas MD at 9:43 EST ,
== END | disposition home or self-care (01) ==
LOC: CT 07:35
PROVIDERS: PCP Family Medicine; Referring Provider Urology; Visit Provider Urology
DX: N39.42 Incontinence without sensory awareness (principal); C61 Malignant neoplasm of prostate
CPT/HCPCS: 74177; Q9967; A4216

== ENCOUNTER → 2023-09-27 | Outpatient (CLI) | payer MEDICARE, SELFPAY ==
[2023-09-27 12:27] LABS: Absolute Lymphocyte Count 1.15 X10^3/uL (0.83-4.51); Absolute Neutrophil Count 5.3 X10^3/uL (2.0-7.7); Basophil# 0.03 X10^3/uL; Basophil% 0.4 % (0-1); Eosinophil# 0.07 X10^3/uL; Hematocrit 41.7 % (40-54); Hemoglobin 13.4 g/dL (13.0-16.5); Lymphocyte # 1.15 X10^3/ul (0.83-4.51); Lymphocyte % 15.9 % (19-41); Mean Corp Hgb Conc 32.1 g/dL (32-36); Mean Corpuscular Hgb 31.5 pg (27.0-32.0); Mean Corpuscular Volume 97.9 fL (80-94); Mean Platelet Vol. 11.9 fl (6.2-12.0); Monocyte# 0.67 X10^3/uL; Monocyte% 9.2 % (0-10); NRBC Flagged by Analyzer 0 % (0-5); Neutrophil # 5.27 X10^3/uL (2.7-7.7); Neutrophil % 72.7 % (47-70); Platelet Count 165 K/mm3 (150-450); RBC Distribution Width CV 15.3 % (11.6-14.6); RBC Distribution Width SD 54.6 fl (35.1-43.9); Red Blood Count 4.26 M/mm3 (4.6-6.2); White Blood Count 7.3 K/mm3 (4.4-11.0)
[2023-09-27 13:25] LABS: ALB/GLOB Ratio 0.9 RATIO (0.9-2.4); AST(SGOT) 23 U/L (15-37); Alanine Aminotransfer ALT/SGPT 21 U/L (16-61); Albumin, Serum 3.2 g/dL (3.2-5.0); Alkaline Phosphatase 136 U/L (45-117); Anion Gap 6 (5-15); BUN 83 mg/dL (7-18); BUN/Creat Ratio 39.7 RATIO (10-20); Chloride 104 mmol/L (98-107); Creatinine, Serum 2.09 mg/dL (0.70-1.30); EST Glomerular Filtration Rate 32 mL/min (>60); Est Glom Filt Rate - Afr Amer 39 mL/min (>60); Globulin 3.7 g/dL (2.2-4.2); Glucose 87 mg/dL (74-106); Potassium 3.7 mmol/L (3.5-5.1); Protein, Total 6.9 g/dL (6.4-8.2); Sodium Level 140 mmol/L (136-145)
== END | disposition home or self-care (01) ==
LOC: LAB 11:45
PROVIDERS: PCP Family Medicine; Referring Provider Nurse Practitioner Family; Visit Provider Nurse Practitioner Family
DX: I10 Essential (primary) hypertension (principal); E78.2 Mixed hyperlipidemia; R06.09 Other forms of dyspnea; Z98.890 Other specified postprocedural states
CPT/HCPCS: 36415; 80053; 85025

== ENCOUNTER 2024-05-26 13:12 | Inpatient (IN) | payer MEDICARE, SELFPAY ==
[2024-05-26 13:14] VITALS: BP 106/83; PULSE 117; RESP 18; TEMP 36.3; O2SAT 97
[2024-05-26 13:16] VITALS: BMI 35.0
--- NOTE | 2024-05-26 13:39 | RAD_ITS ---
STUDY: X-RAY CHEST REASON FOR EXAM: Male, 83 years old. Dyspnea, REESE, edema TECHNIQUE: AP and lateral views of the chest. COMPARISON: Comparison is made with prior study dated February 27, 2023. FINDINGS: EKG electrodes are seen. The lungs are clear and expanded. There is no demonstrated pleural abnormality. There is mild cardiac enlargement. Normal mediastinum and justus. Normal visualized pulmonary arteries. There is atherosclerotic calcification of the aortic arch with tortuosity. There are degenerative changes of the visualized thoracic spine. Normal visualized ribs, clavicles, and shoulders. There is no demonstrated abnormality of the visualized soft tissue structures of the upper abdomen. RAD/Chest PA and Lateral IMPRESSION: Cardiomegaly. The lungs are clear. Electronically Signed: Joce Freitas MD at 14:45 EST ,
--- NOTE | 2024-05-26 13:39 | EKG12_ITS ---
Test Reason : DIZZINESS Blood Pressure : */* mmHG Vent. Rate : 92 BPM Atrial Rate : * BPM P-R Int : * ms QRS Dur : 86 ms QT Int : 394 ms P-R-T Axes : * 59 20 degrees QTcB Int : 487 ms Atrial fibrillation Low voltage QRS Nonspecific ST abnormality Abnormal ECG Confirmed by ANASTACIO WEI, BETSY ([id number]), purchasing expeditor DEANDRE TREVINO ([id number]) on 05/27/2024 11:41:53 AM Referred By: Confirmed By: BETSY CHAVES MD
[2024-05-26 13:57] LABS: Absolute Lymphocyte Count 0.68 X10^3/uL (0.83-4.51); Absolute Neutrophil Count 8.9 X10^3/uL (2.0-7.7); Basophil# 0.05 X10^3/uL; Basophil% 0.5 % (0-1); Eosinophil# 0.07 X10^3/uL; Eosinophils% 0.6 % (0-5); Hematocrit 38.5 % (40-54); Hemoglobin 12.6 g/dL (13.0-16.5); Lymphocyte # 0.68 X10^3/ul (0.83-4.51); Lymphocyte % 6.2 % (19-41); Mean Corp Hgb Conc 32.7 g/dL (32-36); Mean Corpuscular Hgb 31.2 pg (27.0-32.0); Mean Corpuscular Volume 95.3 fL (80-94); Mean Platelet Vol. 10.7 fl (6.2-12.0); Monocyte# 1.17 X10^3/uL; Monocyte% 10.6 % (0-10); NRBC Flagged by Analyzer 0 % (0-5); Neutrophil # 8.87 X10^3/uL (2.7-7.7); Neutrophil % 80.5 % (47-70); Platelet Count 239 K/mm3 (150-450); RBC Distribution Width CV 14.4 % (11.6-14.6); RBC Distribution Width SD 49.5 fl (35.1-43.9); Red Blood Count 4.04 M/mm3 (4.6-6.2)
[2024-05-26 14:19] LABS: BNP,B-Type NATRIURETIC PEPTIDE 145.9 pg/mL (0-100)
[2024-05-26 14:20] LABS: ALB/GLOB Ratio 0.6 RATIO (0.9-2.4); AST(SGOT) 13 U/L (15-37); Alanine Aminotransfer ALT/SGPT 15 U/L (16-61); Albumin, Serum 2.7 g/dL (3.2-5.0); Alkaline Phosphatase 95 U/L (45-117); Anion Gap 7 (5-15); BUN 51 mg/dL (7-18); BUN/Creat Ratio 22.1 RATIO (10-20); Chloride 101 mmol/L (98-107); Creatinine, Serum 2.31 mg/dL (0.70-1.30); EST Glomerular Filtration Rate 29 mL/min (>60); Est Glom Filt Rate - Afr Amer 35 mL/min (>60); Globulin 4.2 g/dL (2.2-4.2); Glucose 149 mg/dL (74-106); Protein, Total 6.9 g/dL (6.4-8.2); Sodium Level 138 mmol/L (136-145); Troponin-I HS 15 pg/mL (3.0-78.0)
--- NOTE | 2024-05-26 14:30 | EX.ED.DYSGE1 ---
HPI History of Present Illness Chief Complaint: Dizziness Detail of Chief Complaint: Dizziness which patient describes as lightheadedness and generalized weakne Informant: patient and family Onset/Context/Timing Onset: Days Context: Gradual Onset Timing: Continuous Quality: Difficulty standing because of lightheadedness, and incontinence of urine Location: Not applicable Current Severity: Mild Maximum Severity: Severe Worsened by: Upright position Relieved by: Better if he is supine Associated Symptoms Associated Symptoms: Chronic orthopnea and edema Narrative Narrative: patient is an 83-year-old male with history of coronary disease with placement of multiple stents, heart failure with preserved ejection fraction, essential hypertension, hyperlipidemia, obstructive sleep apnea, chronic atrial fibrillation on anticoagulant who presents with generalized weakness. He states he was unable to get up out of bed today. He was unable to get up to eat. He has had weakness that started a couple days ago. He reports incontinence of his urine. He wears a diaper. He is not certain when it is wet. He was unaware that he has discoloration of his legs due to venous stasis dermatitis. He does live alone. He denies fever, chills night sweats. Denies headache, double vision blurred vision loss of vision. He denies decreased hearing. Denies trouble with speech or swallowing. He does endorse dyspnea, dyspnea on exertion and orthopnea. He has had chronic orthopnea. He denies abdominal pain, black or maroon-colored stool. He denies dysuria or hematuria. Prior similar symptoms: No Recent Illness/Hospitalization: No [facility] Medical History Cataract (lens) fragments in eye following cataract surgery, left eye (HFpEF) heart failure with preserved ejection fraction Atherosclerosis of coronary artery of [place] heart without angina pectoris Nonrheumatic mitral (valve) insufficiency Venous stasis dermatitis of both lower extremities Hyperlipidemia Essential hypertension NASH on CPAP Prostate cancer Home Medications ?Medication ?Instructions ?Recorded ?Last Taken ?Type atorvastatin 40 mg tablet 40 mg PO QHS cholesterol 01/25/22 Unknown History vibegron 75 mg tablet (Gemtesa) 75 mg PO DAILY see pcp 02/28/23 Unknown History acetaminophen 325 mg tablet 650 mg (2 x 325 mg) PO Q6H PRN PRN 03/05/23 Unknown Rx Pain 1-10 Or Fever>100.7 #0 tabs menthol 0.44 %-zinc oxide 20.6 % 1 applic topical TID #0 grams 03/05/23 Unknown Rx topical ointment (Calmoseptine) spironolactone 25 mg tablet 25 mg PO DAILY #30 tabs 07/01/23 Unknown Rx metoprolol succinate 25 mg 25 mg PO DAILY blood pressur #90 08/26/23 Unknown Rx tablet,extended release 24 hr tabs apixaban 2.5 mg tablet (Eliquis) 2.5 mg PO BID #180 tabs 09/27/23 Unknown Rx torsemide 20 mg tablet 20 mg PO DAILY #90 tabs 09/27/23 Unknown Rx dapagliflozin propanediol 10 mg 10 mg PO DAILY #90 tabs 05/26/24 Unknown Rx tablet (Farxiga) Allergy/AdvReac Type Severity Reaction Status Date / Time No Known Allergies Allergy Verified 05/26/24 13:14 Family History Other Prostate cancer Surgical History History of coronary artery stent placement History of mitral valve repair (09/19/21) History of right and left heart catheterization (09/04/21) History of prostate surgery History of appendectomy History of cardioversion (12/12/21) Social History Smoking Status: Never smoker alcohol intake: never caffeine: Yes ROS ROS ED Constitutional Constitutional ED: Denies chills, fever(s), subjective, sweats or weight loss Eyes Eyes: Denies blurry vision or change in vision ENT ENT ED: Denies ear pain, rhinorrhea or sore throat Cardiovascular Cardiovascular: Reports orthopnea and other Details: Orthostatic lightheadedness ; Denies chest pain, palpitations or paroxysmal nocturnal dyspnea Respiratory/Chest Respiratory/Chest: Reports dyspnea, dyspnea on exertion and orthopnea; Denies cough or paroxysmal nocturnal dyspnea Gastrointestinal Gastrointestinal: Reports diarrhea and other Details: Diarrhea is intermittent and chronic. ; Denies abdominal pain, melena, nausea or vomiting Genitourinary Genitourinary ED: Reports other Details: Incontinence of urine. ; Denies dysuria or hematuria Musculoskeletal Musculoskeletal: Denies arthralgias or myalgias Integumentary Denies Abrasions or rash Neurologic Neurologic: Reports weakness; Denies headache(s) or paresthesias Psychiatric Psychiatric: Denies anxiety Endocrine Endocrinology: Denies cold intolerance or heat intolerance Hematologic/Lymphatic Hematologic/Lymphatic: Reports easy bruising EXAM Physical Exam Const Vital Signs: 05/26/24 13:14 05/26/24 13:25 05/26/24 15:15 Temperature 97.4 F L Temperature Source Oral Pulse Rate 117 H 86 Respiratory Rate 18 19 H Respiratory Pattern Normal Blood Pressure 106/83 H 158/69 H Blood Pressure Mean 90 98 Pulse Ox 97 96 Oxygen Delivery Method Room Air Room Air 05/26/24 15:40 05/26/24 15:41 Temperature 98.1 F 98.1 F Temperature Source Oral Pulse Rate 82 82 Respiratory Rate 20 H 20 H Respiratory Pattern Blood Pressure 153/65 H 153/65 H Blood Pressure Mean 94 94 Pulse Ox 97 96 Oxygen Delivery Method Room Air Positive well nourished and well developed Constitutional Narrative: BMI is greater than 40. General Appearance ED: well developed; Negative for NAD or pallor HEENT Reports dry mucous membranes HEENT Narrative: Ears normal. Nares patent. Posterior pharynx is normal. Mouth ED: Yes dry mucous membranes Mouth: dry mucous membranes Eyes PERRL and EOMs intact bilaterally General Eye ED: Negative for pale conjunctiva or scleral icterus Neck no lymphadenopathy, supple and no JVD Chest Wall inspection of chest normal and palpation of chest normal Resp normal respiratory effort and clear to auscultation bilaterally Cardio regular rhythm, S1 normal heart sound, S2 normal heart sound and no murmurs Rate: tachycardic GI normal to inspection, nondistended, normoactive bowel sounds, non-tender, non-distended and no masses; Negative for hepatosplenomegaly Palpation: soft Back/Spine no CVA tenderness Extremity Negative for normal to inspection Extremity Narrative: Venous stasis dermatitis with bilateral pitting edema of the legs and feet. Neuro oriented x3 and CN's II-XII intact bilaterally Neuro Narrative: Patient is awake. He is not necessarily alert. Sensorium / Orientation: Negative for alert Skin no rashes or lesions noted and No skin turgor normal General Skin Exam: Negative for jaundice or pallor Sepsis Attestation Sepsis Alert: Yes Sepsis Attestation: Agree w/Sepsis Date exam was performed: 05/26/24 Possible Source of Sepsis: Genitourinary Fluid Resuscitation Fluid resuscitation indicated?: Yes Fluid Resuscitation ordered: Lesser volume fluid bolus ordered Amount of fluid ordered: 1,000 Reason for lesser fluid bolus:: Concern for fluid overload, Heart failure (History of) and Renal Failure MDM MDM MDM Narrative Medical decision making narrative: Compared to prior blood pressures patient's blood pressure is low. He is also tachycardic. This may be due to hypovolemia, need to also consider cardiac etiology which would include ischemia. Also consideration would be infection in light of the fact that he is incontinent of urine. Nurse informing of his incontinence. He has a grade 2 sacral pressure ulcer noted. The area is inflamed due to most likely chemical dermatitis. She also inflammation of the scrotal and perineal area. Cath urine was obtained. Medina was placed because of the pressure sore and the fact that he is incontinent. Urine was turbid and may be source of his hypotension i.e. infection. CBC and CMP were obtained. Also concern for possible cardiac ischemia and reason for troponin and BNP. Based on the appearance of the urine urine culture was added. Will add lactate if not initially ordered. Patient did not receive fluid bolus because he may be in heart failure. If x-ray does not show heart failure or BNP is not markedly elevated will administer fluid bolus. Lab Data Attestation: I reviewed the patient's lab results. Lab results narrative: White count is upper end of normal of 11,000 with slight shift. He has mild anemia with an H&H of 12.6 and 38.5 with normal indices. BUN and creatinine are elevated 51 and 2.31. This is slightly elevated compared to baseline. Glucose is elevated 149 with a normal CO2 anion gap. Troponin is normal at 15. BNP is slightly elevated 145.9. Labs: Laboratory Results - last 24 hr 05/26/24 05/26/24 13:48 14:40 WBC 11.0 RBC 4.04 L Hgb 12.6 L Hct 38.5 L MCV 95.3 H MCH 31.2 MCHC 32.7 RDW Std Deviation 49.5 H RDW Coeff of [place] 14.4 Plt Count 239 MPV 10.7 Immature Gran % (Auto) 1.600 H Neut % (Auto) 80.5 H Lymph % (Auto) 6.2 L [place] % (Auto) 10.6 H Eos % (Auto) 0.6 Baso % (Auto) 0.5 Absolute Neuts (auto) 8.9 H Absolute Lymphs (auto) 0.68 L Nucleated RBC % 0 Sodium 138 Potassium 4.0 Chloride 101 Carbon Dioxide 30.0 Anion Gap 7 BUN 51 H Creatinine 2.31 H Est GFR (MDRD) Af Amer 35 L Est GFR (MDRD) Non-Af 29 L BUN/Creatinine Ratio 22.1 H Glucose 149 H Calcium 9.0 Total Bilirubin 0.80 AST 13 L ALT 15 L Alkaline Phosphatase 95 Troponin I High Sens 15 B-Natriuretic Peptide 145.9 H Total Protein 6.9 Albumin 2.7 L Globulin 4.2 Albumin/Globulin Ratio 0.6 L Urine Color Yellow Urine Clarity Cloudy Urine pH 8.0 Ur Specific [place] 1.010 Urine Protein 100 H Urine Glucose (UA) 50 H Urine Ketones Negative Urine Occult Blood 150 H Urine Nitrite Negative Urine Bilirubin Negative Urine Urobilinogen Normal Ur Leukocyte Esterase 500 H Urine RBC 0 SEEN Urine WBC 50-100 SEEN Ur Squamous Epith Cells 0 SEEN Urine Bacteria 0 SEEN Urine Mucus 0 SEEN Radiography Chest X-Ray - ED: 1 View, Read by ED Physician, Unchanged, Heart, Mediastinum, Bony Structures, No Acute Disease and Chronic Changes (Minimal chronic changes in the lungs. There is no evidence of heart failure, infiltrate or effusion.) Diagnostic Testing: Clinical Impression(s) from Imaging Studies Chest X-Ray 05/26/24 13:39 IMPRESSION: Cardiomegaly. The lungs are clear. Electronically Signed: Joce Freitas MD at 14:45 EST , EKG Initial EKG: Attestation: I personally reviewed and interpreted this EKG as follows: Interpretation: Atrial Fibrillation (Rate is 92. QRS duration 86 ms. QT duration 394 ms. Onyx is normal. There is nonseptic changes which is all likelihood is artifact.) Management Discussion w/another healthcare provider: Hospitalist (Dr. Vivas was paged. Will inform of patient's history, physical, results/treatment and potential skilled nursing placement.) Additional Tests and Interventions Additional Tests or Interventions: Since patient has Medicare A and B if lactate is elevated he will meet criteria for sepsis and will require admission to ICU. Discharge Plan Dx/Rx/DC Orders Clinical Impression: Atherosclerosis of coronary artery of [place] heart without angina pectoris, (HFpEF) heart failure with preserved ejection fraction, Chronic atrial fibrillation, Generalized weakness, Acute hypotension, Debility, Pyuria Disposition Disposition: Acute Care Hospital [facility]
[2024-05-26 14:42] LABS: Bacteria 0 SEEN /hpf (None Seen); Mucous, Urine 0 SEEN /hpf (<or=2+); Red Blood Cells-Urine 0 SEEN /hpf (0-5); Squamous Epithelial Cells - UA 0 SEEN /hpf (0-5)
[2024-05-26 14:58] LABS: Color, Urine Yellow (Yellow); Glucose, Dipstick 50 mg/dl (Normal); Ketone-Dipstick Negative (Negative); Leukocyte Esterase-Dipstick 500 /ul (Negative); Nitrite-Dipstick Negative (Negative); Occult Blood-Urine 150 /ul (Negative); Protein-Dipstick 100 mg/dl (Negative); Urine Bilirubin Dipstick Negative (Negative); Urine Clarity Cloudy (Clear); Urine Urobilinogen Normal (Normal)
[2024-05-26] MEDS: Ceftriaxone 2 GM in 0.9% Normal Saline (50mL MB+) 50 ML IV (15:03)
[2024-05-26] MEDS: 0.9% Normal Saline (1000mL) 1,000 ML 1000 ML IV (15:03)
[2024-05-26 15:06] LABS: White Blood Cells 50-100 SEEN /hpf (0-5)
[2024-05-26 15:15] VITALS: BP 158/69; PULSE 86; RESP 19; O2SAT 96
[2024-05-26 15:40] VITALS: BP 153/65; PULSE 82; RESP 20; TEMP 36.7; O2SAT 97
[2024-05-26 15:41] VITALS: BP 153/65; PULSE 82; RESP 20; TEMP 36.7; O2SAT 96
--- NOTE | 2024-05-26 15:43 | PCM.HP.STD ---
HPI - General General Date of Admission: 05/26/24 Date of Service: 05/26/24 Chief Complaint: Worsening weakness with dizziness HPI Narrative MERARI JIN, is a 83 M who presented to [facility] ED on 05/26/2024 with worsening weakness with dizziness. Patient lives at home by himself. Has a home health aide that comes in 3 days/week to help primarily with tasks around the house. Patient stated he had been feeling more weak with some dizziness for the past week. This morning he was unable to get up out of bed so he called EMS to bring him in. In the ED blood pressure was slightly low at 106/83 (baseline is 140s to 150 systolic), mild A-fib with RVR to heart rate 117, otherwise breathing comfortably on room air. Labs notable for WBC count 11.0, creatinine 2.31 (baseline around 1.6-2.0). UA showed 500 leukocyte esterase, negative nitrates, 50-100 WBCs, 0 bacteria. Chest x-ray showed known cardiomegaly with clear lung pascal. Given his worsening weakness and TIMBO with concern for UTI, hospitalist was contacted for admission. I saw the patient at bedside in the ED. Patient was alert and oriented x 3. He was mildly fatigued appearing but otherwise laying back comfortably in bed and in no acute distress. He had a Medina catheter placed in the ED and has had a significant amount of dark urine output since placement. Patient has urinary incontinence at baseline and has had this for a few years. He states that the incontinence has been worse over the past few days and last night he was changing his pad in bed almost every hour and the pad was wet every time he changed it. States that he does drink 3-4 large glasses of water daily and has been doing this up till today. States that he has generally felt weaker than his normal over the past few months, but this has notably worsened over the past week or so. The dizziness with standing up and trying to ambulate has been much worse over the past few days. He denies any fevers or chills. Denies any chest pain or shortness of breath. No other acute concerns currently. Will be admitted for further management. [facility] Medical History Cataract (lens) fragments in eye following cataract surgery, left eye (HFpEF) heart failure with preserved ejection fraction Atherosclerosis of coronary artery of [place] heart without angina pectoris Nonrheumatic mitral (valve) insufficiency Venous stasis dermatitis of both lower extremities Hyperlipidemia Essential hypertension NASH on CPAP Prostate cancer Home Medications ?Medication ?Instructions ?Recorded ?Last Taken ?Type atorvastatin 40 mg tablet 40 mg PO QHS cholesterol 01/25/22 Unknown History acetaminophen 325 mg tablet 650 mg (2 x 325 mg) PO Q6H PRN PRN 03/05/23 Unknown Rx Pain 1-10 Or Fever>100.7 #0 tabs menthol 0.44 %-zinc oxide 20.6 % 1 applic topical TID #0 grams 03/05/23 Unknown Rx topical ointment (Calmoseptine) spironolactone 25 mg tablet 25 mg PO DAILY #30 tabs 07/01/23 Unknown Rx metoprolol succinate 25 mg 25 mg PO DAILY blood pressur #90 08/26/23 Unknown Rx tablet,extended release 24 hr tabs apixaban 2.5 mg tablet (Eliquis) 2.5 mg PO BID #180 tabs 09/27/23 Unknown Rx torsemide 20 mg tablet 20 mg PO DAILY #90 tabs 09/27/23 Unknown Rx dapagliflozin propanediol 10 mg 10 mg PO DAILY #90 tabs 05/26/24 Unknown Rx tablet (Farxiga) Allergy/AdvReac Type Severity Reaction Status Date / Time No Known Allergies Allergy Verified 05/26/24 13:14 Family History Other Prostate cancer Surgical History History of coronary artery stent placement History of mitral valve repair (09/19/21) History of right and left heart catheterization (09/04/21) History of prostate surgery History of appendectomy History of cardioversion (12/12/21) Social History (Updated 05/26/24 @ 16:24 by Jenny Ng) current occupational status: retired Smoking Status: Never smoker alcohol intake: never caffeine: Yes ROS Constitutional Constitutional: Reports fatigue and weakness; Denies chills or fever(s) Eyes Eyes: Denies change in vision Cardiovascular Cardiovascular: Reports lightheadedness; Denies chest pain, dyspnea on exertion, edema or palpitations Respiratory/Chest Respiratory/Chest: Denies cough, shortness of breath at rest or wheezing Gastrointestinal Gastrointestinal: Denies abdominal pain Genitourinary Genitourinary: Reports urinary frequency and urinary incontinence; Denies burning urination, difficulty urinating or dysuria Musculoskeletal Musculoskeletal: Denies arthralgias or myalgias Neurologic Neurologic: Reports dizziness; Denies headache(s) Vital Signs Vital Signs Vital Signs: 05/26/24 13:14 05/26/24 13:25 05/26/24 15:15 Temperature 97.4 F L Temperature Source Oral Pulse Rate 117 H 86 Respiratory Rate 18 19 H Respiratory Pattern Normal Blood Pressure 106/83 H 158/69 H Blood Pressure Mean 90 98 Pulse Ox 97 96 Oxygen Delivery Method Room Air Room Air 05/26/24 15:40 05/26/24 15:41 Temperature 98.1 F 98.1 F Temperature Source Oral Pulse Rate 82 82 Respiratory Rate 20 H 20 H Respiratory Pattern Blood Pressure 153/65 H 153/65 H Blood Pressure Mean 94 94 Pulse Ox 97 96 Oxygen Delivery Method Room Air Physical Exam Const alert, oriented x3 and no apparent distress Constitutional Narrative: Elderly male, class II obesity, mildly fatigued appearing but otherwise laying back comfortably in bed, alert and oriented x 3, conversing normally, in no acute distress. General Appearance: cooperative and comfortable HEENT normocephalic, head/scalp atraumatic, hearing grossly normal bilaterally and nasal mucous membranes and turbinates normal HEENT Narrative: Dry mucous membranes. Eyes PERRL, EOMs intact bilaterally and conjunctivae normal Neck full ROM Chest inspection of chest normal Resp normal respiratory effort, normal air movement, no use of accessory muscles and clear to auscultation bilaterally Cardio regular rate, regular rhythm, no murmurs and peripheral pulses 2+ throughout GI normal to inspection, nondistended, normoactive bowel sounds, soft to palpation, non-tender and non-distended no CVA tenderness Bladder / Kidney Exam: catheter in place and bladder normal to palpation Back/Spine normal ROM Extremity Extremity Narrative: Chronic venous stasis changes noted bilaterally. No edema noted. Neuro oriented x3, moves all extremities and no focal motor deficits Speech: speech normal Psych mental status grossly normal Results Lab / Micro Data 05/26/24 13:48 05/26/24 13:48 Labs: Laboratory Results - last 24 hr 05/26/24 13:48: WBC 11.0, RBC 4.04 L, Hgb 12.6 L, Hct 38.5 L, MCV 95.3 H, MCH 31.2, MCHC 32.7, RDW Std Deviation 49.5 H, RDW Coeff of [place] 14.4, Plt Count 239, MPV 10.7, Immature Gran % (Auto) 1.600 H, Neut % (Auto) 80.5 H, Lymph % (Auto) 6.2 L, [place] % (Auto) 10.6 H, Eos % (Auto) 0.6, Baso % (Auto) 0.5, Absolute Neuts (auto) 8.9 H, Absolute Lymphs (auto) 0.68 L, Nucleated RBC % 0, Sodium 138, Potassium 4.0, Chloride 101, Carbon Dioxide 30.0, Anion Gap 7, BUN 51 H, Creatinine 2.31 H, Est GFR (MDRD) Af Amer 35 L, Est GFR (MDRD) Non-Af 29 L, BUN/Creatinine Ratio 22.1 H, Glucose 149 H, Calcium 9.0, Total Bilirubin 0.80, AST 13 L, ALT 15 L, Alkaline Phosphatase 95, Troponin I High Sens 15, B-Natriuretic Peptide 145.9 H, Total Protein 6.9, Albumin 2.7 L, Globulin 4.2, Albumin/Globulin Ratio 0.6 L 05/26/24 14:40: Urine Color Yellow, Urine Clarity Cloudy, Urine pH 8.0, Ur Specific [place] 1.010, Urine Protein 100 H, Urine Glucose (UA) 50 H, Urine Ketones Negative, Urine Occult Blood 150 H, Urine Nitrite Negative, Urine Bilirubin Negative, Urine Urobilinogen Normal, Ur Leukocyte Esterase 500 H, Urine RBC 0 SEEN, Urine WBC 50-100 SEEN, Ur Squamous Epith Cells 0 SEEN, Urine Bacteria 0 SEEN, Urine Mucus 0 SEEN Imaging Radiology Impression Chest X-Ray 05/26/24 13:39 IMPRESSION: Cardiomegaly. The lungs are clear. Electronically Signed: Joce Freitas MD at 14:45 EST , Assessment & Plan Assessment/Plan (1) Debility: (2) Generalized weakness: (3) Urinary tract infection: QUALIFIERS: Urinary tract infection type: acute cystitis Hematuria presence: without hematuria Qualified Code(s): N30.00 - Acute cystitis without hematuria PLAN: Plan Patient is an 83-year-old male who presented [facility] ED on 05/26/2024 with worsening weakness with dizziness. 1. Acute on chronic debility ? Admit under inpatient status to PCU. PT/OT/case management consulted. Patient lives at home alone but has a private aide that comes in 3 times per week. Suspect primarily chronic issues but may have slight acute worsening due to mild dehydration with possible UTI. Appreciate therapy recommendations. 2. Mild creatinine elevation on CKD stage IIIb ? Creatinine 2.31 on admit. Baseline creatinine 1.6-2.0. Suspect due to mild dehydration in setting of home diuretics. Has urinary incontinence as noted below and Medina catheter was placed on admission, and he has had good urine output since Medina placement. Given 1 L normal saline in the ED. Will hold home torsemide, spironolactone and dapagliflozin for now. Follow-up a.m. BMP. 3. Concern for UTI ? UA showed 500 leukocyte esterase, negative nitrates, 50-100 WBCs, 0 bacteria. ED noted concern for pyuria but when I saw the patient urine bag has dark urine but no joe purulence. Had UTI in February 2023 that grew pansensitive Pseudomonas. Will treat with IV ceftriaxone for now, follow-up urine culture. 4. Chronic HFpEF with pulmonary hypertension ? Follows with outpatient cardiology. Dry on admission, not in heart failure exacerbation. Continue home Toprol and atorvastatin. Holding home spironolactone, torsemide and dapagliflozin as noted above. 5. Chronic A-fib ? Mild A-fib with RVR on admit that improved with IV fluids. Continue home Toprol and Eliquis. Chronic medical conditions: ? Class II obesity: BMI 35 on admit. Complicates hospital course, care and prognosis. ? 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 ? Urinary incontinence: Medina catheter placed on admission as noted above. Not on any home medications for this. ? History of mitral valve repair DVT prophylaxis: Not indicated, on Eliquis CODE STATUS: DNR CCA, DNI. Discussed with patient and he clearly stated that he would not want any chest compressions or a breathing tube if his heart was to stop. He is alert and oriented x 3 and has capacity. Expect disposition: SNF versus home with home health care, 2 to 3 days Total clinical time spent by myself addressing the patient's medical issues, reviewing all the data, and collaborating with patient's care team: 55 minutes. Charges/Coding Visit Charges Inpatient E&M: 79897 Init Hosp L2
[2024-05-26 15:51] LABS: Lactic Acid 1.1 mmol/L (0.4-1.9)
[2024-05-26 16:20] VITALS: BMI 35.2
[2024-05-26 16:49] VITALS: BP 159/73; PULSE 75; RESP 17; TEMP 36.7; O2SAT 95
[2024-05-26 20:31] VITALS: BP 136/73; PULSE 87; RESP 16; TEMP 36.6; O2SAT 96
[2024-05-26] MEDS: APIXABAN 2.5 MG TABLET (WCH) PO (20:38)
[2024-05-26] MEDS: Menthol/Lanolin/Calamine/Znox 113 GM Tube 1 APPLIC TOPICAL (20:39)
[2024-05-26] MEDS: Nystatin Powder 15gm Bottle 1 APPLIC TOPICAL (20:40)
[2024-05-27] VITALS (9 sets, daily range): BP systolic 124–164; BP diastolic 53–77; PULSE 68–90; RESP 16–18; TEMP 36.4–36.7; O2SAT 92–99
--- NOTE | 2024-05-27 04:53 | PCM.HOSP.N ---
Hospitalist Note Patient with mild blood tinged urine, difficult solomon placement, requested manual irrigation and some clots removed, will temporarily hold eliquis.
[2024-05-27] MEDS: Nystatin Powder 15gm Bottle 1 APPLIC TOPICAL ×3 (05:22→20:25)
[2024-05-27 07:43] LABS: Hematocrit 36.5 % (40-54); Hemoglobin 12.3 g/dL (13.0-16.5); Mean Corp Hgb Conc 33.7 g/dL (32-36); Mean Corpuscular Hgb 31.6 pg (27.0-32.0); Mean Corpuscular Volume 93.8 fL (80-94); Platelet Count 208 K/mm3 (150-450); RBC Distribution Width CV 14.6 % (11.6-14.6); Red Blood Count 3.89 M/mm3 (4.6-6.2); White Blood Count 8.7 K/mm3 (4.4-11.0)
[2024-05-27 07:57] LABS: Anion Gap 7 (5-15); BUN 49 mg/dL (7-18); Calcium,Total 8.6 mg/dL (8.5-10.1); Chloride 102 mmol/L (98-107); Creatinine, Serum 2.13 mg/dL (0.70-1.30); EST Glomerular Filtration Rate 32 mL/min (>60); Est Glom Filt Rate - Afr Amer 38 mL/min (>60); Estimated Creatinine Clearance 30.85 ml/min; Glucose 100 mg/dL (74-106); Potassium 3.7 mmol/L (3.5-5.1); Sodium Level 136 mmol/L (136-145)
--- NOTE | 2024-05-27 10:30 | CASEMGMT ---
RN?CM?RELIEF PILOT?CM?to room to meet with patient for initial transition planning/care coordination?assessment.?RN?CM?introduced self and role at [facility].? Pt voices understanding and consents to?assessment?at this time.? Pt resting in bed in room in no distress at this time.?Pt is A/O at this time and answers all questions appropriately. Care providers, pharmacy, and demographics verified/updated at this time. PCP: Dr Hernandez Specialists: Dr Hermosillo-cardiology. He states he has an upcoming appt but does remember when. Call placed to [facility]. Appt is 09/01/24 @ 10:30 AM. Appt added to pt's discharge plan and pt made aware. Preferred Pharmacy: [facility]. Would like to use [facility] Retail pharmacy @ discharge. [employer] updated . Insurance: MCR A/B Prescription Benefit:?Yes Living Will/HPOA:?Pt states he has done both LW and Healthcare POA and states his grandson, Nikunj, is his POA 1st and then brother, Alma. LNOK: One son, Duran. Grandson, Nikunj. Brother, Alma Living Arrangements: Pt lives alone in one-story home w/basement. Pt states there is a ramp entrance into his home and a walk-out basement. Pt independent w/ADL's and manages his own medications and appts. He states a friend comes 3 x's/week to assist w/home mgnt tasks. DME: Pt has a shower chair, 2 lift chairs, handicap scooter, and exercise machine. He states he usually does 45 min to 1 hour on the exercise machine, but states about 10 days ago he started having some difficulty, stating it has become less and less amt of time that he could tolerate. He states 2 days ago 15 min did me in. He then became so weak he was having difficulty ambulating on his own. He has a rollator that he doesn't usually use, but states had to start using it this past week. He would often furniture walk prior to that. He states he has a POC that he does not use, stating he was on oxygen at one time and purchased the POC, but no longer needs oxygen @ home. He would like medical alert info. Provided at this time. HHC/SNF: Hx of [facility] and states he does not want to go back there. He also has had HHC in the past. Pt made aware therapy would evaluate him and make recommendations and that CM would f/u with him once this is done. Pt states he does not want to go to a SNF, even if they recommend that, stating he is bull-headed and that he definitely wants to go home. He would like HHC. Made aware a list of HHC agencies can be provided for him to review. He voices understanding. Pt plan: Home w/HHC. Plan:??TBD by pt progress and progress with therapy. PT/OT evals pending. Joseline MANCUSON RN CM
[2024-05-27] MEDS: Vibegron 75 MG TABLET PO (10:46)
[2024-05-27] MEDS: Ceftriaxone 2 GM in 0.9% Normal Saline (50mL MB+) 50 ML IV (10:47)
[2024-05-27] MEDS: Metoprolol(XL)Succ 25 MG Tablet PO (10:47)
--- NOTE | 2024-05-27 11:42 | CASEMGMT ---
Discharge Planning A list of HH providers including quality and resource use data and consistent with the patient's preferred geographic region, medical needs, and insurance network was created in [employer] Guide.? This list was provided to the RN DEMIAN. Sara Sutton, Discharge Planning Asst.
[2024-05-27] MEDS: Menthol/Lanolin/Calamine/Znox 113 GM Tube 1 APPLIC TOPICAL ×2 (16:02→20:25)
--- NOTE | 2024-05-27 16:23 | CHAPLAIN ---
Type of Pastoral Visit _x__ Initial Visit ___ Follow-up Visit ___ On-call Visit ___ General Patient Visit ___ Spiritual Assessment ___ Family Conference ___ Bereavement ___ Rapid Response ___ Code Blue ___ Other (describe below) Pastoral Care Referral From _x__ Patient ___ Family ___ Nurse ___ Physician ___ Cooling Tower Operator ___ Chicken Dresser ___ Other (describe below) Sacrament/Intervention _x__ Active listening ___ Anointing ___ Mormon ___ Bereavement ___ Communion ___ Cora exploration ___ _x__ Life review _x__ Prayer ___ Reconciliation ___ Sacrament of Sick _x__ Supportive presence ___ Wedding ___ Other (describe below) Pastoral Comments time given to sit with and listen to the patient; pt is wanting to go home and gives reasons why he will have the support necessary; pt is pleasant and welcomes spiritual care and prayer
--- NOTE | 2024-05-27 17:08 | PCM.PN.HOSP ---
Subjective Subjective Doing well, no issues overnight Objective Data Objective Data Vital Signs: Vital Signs Temp Pulse Resp BP Pulse Ox O2 Del Method FiO2 97.9 F 80 16 164/59 H 99 Room Air 21 05/27/24 15:54 05/27/24 15:54 05/27/24 15:54 05/27/24 15:54 05/27/24 15:54 05/27/24 15:54 05/27/24 07:10 Oxygen Delivery Method Room Air Weight: 231 lb 4.238 oz Body Mass Index (BMI) 35.2 Intake & Output: Intake and Output for Last 24 Hours 05/26/24 05/27/24 05/28/24 03:59 03:59 03:59 Intake Total 1050 / 1050 400 / 400 Output Total 550 / 550 1125 / 1125 Balance 500 / 500 -725 / -725 Lab / Micro Data 05/27/24 07:36 05/27/24 07:36 Labs: Laboratory Results - last 24 hr 05/27/24 07:36: WBC 8.7, RBC 3.89 L, Hgb 12.3 L, Hct 36.5 L, MCV 93.8, MCH 31.6, MCHC 33.7, RDW Std Deviation 50.0 H, RDW Coeff of Olvin 14.6, Plt Count 208, MPV 11.0, Sodium 136, Potassium 3.7, Chloride 102, Carbon Dioxide 27.0, Anion Gap 7, BUN 49 H, Creatinine 2.13 H, Estim Creat Clear Calc 30.85, Est GFR (MDRD) Af Amer 38 L, Est GFR (MDRD) Non-Af 32 L, BUN/Creatinine Ratio 23.0 H, Glucose 100, Calcium 8.6 Micro: Microbiology 05/26/24 14:40 Urine, Catheterized Urine Culture - Preliminary Gram negative bell Physical Exam Narrative General: Alert, Oriented x3, Cooperative, No apparent distress HEENT: Atraumatic, PERRLA, EOMI, Normocephalic Oral: Moist Mucosa Neck: Supple, No JVD Lungs: Diminished, Normal air movement, No rhonchi, No wheeze, No rales Cardiovascular: Regular rate, Regular Rhythm, Normal S1, Normal S2, No murmurs Abdomen: Soft, Non Tender, Non-Distended, No Hepato-splenomegaly Extremities: No edema, Capillary Refill Less than 3 Seconds Skin: No rashes, No breakdown Musculoskeletal: No Tenderness to Palpation of Joints or Extremities Neurological: No focal neurological deficits, Motor Exam 5/5 strength throughout, Sensory exam intact to light touch and pain Psych/Mental Status: Normal Affect, Appropriate Assessment & Plan Assessment/Plan (1) Debility: (2) Generalized weakness: (3) Urinary tract infection: QUALIFIERS: Hematuria presence: without hematuria Urinary tract infection type: acute cystitis Qualified Code(s): N30.00 - Acute cystitis without hematuria PLAN: Plan 1. Acute on chronic debility with inability to complete ADLs likely due to UTI ? Continue with antibiotics ? Urine cultures pending ? PT/OT ? May need SNF placement on discharge as he lives alone 2. Chronic diastolic CHF/pulmonary hypertension/chronic A-fib ? Continue with his metoprolol ? Continue with his cholesterol medications ? Will hold his Aldactone and torsemide secondary to a slight elevation in creatinine ? Will hold his SGLT2 inhibitor secondary to the UTI ? Continue with Eliquis DVT: Eliquis Charges/Coding Visit Charges Inpatient E&M: 11757 Subs Hosp L2
[2024-05-27] MEDS: 0.9% Saline Lock 10 ML Syringe IV (20:25)
[2024-05-27] MEDS: Atorvastatin Calcium 40 MG Tablet PO (20:25)
--- NOTE | 2024-05-27 22:50 | CPS ---
Pt requested to have CPAP pressure decreased to 8 cmH2O for his comfort.
[2024-05-28 02:05] VITALS: BP 160/84; PULSE 61; RESP 18; TEMP 36.7; O2SAT 96
[2024-05-28 05:15] VITALS: BP 146/84; PULSE 77; RESP 20; TEMP 36.5; O2SAT 97
[2024-05-28] MEDS: Nystatin Powder 15gm Bottle 1 APPLIC TOPICAL ×3 (05:17→21:32)
[2024-05-28] MEDS: Menthol/Lanolin/Calamine/Znox 113 GM Tube 1 APPLIC TOPICAL ×3 (05:17→21:33)
[2024-05-28 05:47] LABS: Absolute Lymphocyte Count 1.25 X10^3/uL (0.83-4.51); Absolute Neutrophil Count 5.9 X10^3/uL (2.0-7.7); Basophil# 0.06 X10^3/uL; Basophil% 0.7 % (0-1); Eosinophil# 0.21 X10^3/uL; Eosinophils% 2.4 % (0-5); Hematocrit 33.6 % (40-54); Hemoglobin 11.2 g/dL (13.0-16.5); Lymphocyte # 1.25 X10^3/ul (0.83-4.51); Lymphocyte % 14.2 % (19-41); Mean Corp Hgb Conc 33.3 g/dL (32-36); Mean Corpuscular Hgb 31.2 pg (27.0-32.0); Mean Corpuscular Volume 93.6 fL (80-94); Mean Platelet Vol. 11.2 fl (6.2-12.0); Monocyte# 1.18 X10^3/uL; Monocyte% 13.4 % (0-10); NRBC Flagged by Analyzer 0 % (0-5); Neutrophil # 5.93 X10^3/uL (2.7-7.7); Neutrophil % 67.1 % (47-70); Platelet Count 227 K/mm3 (150-450); RBC Distribution Width CV 14.6 % (11.6-14.6); Red Blood Count 3.59 M/mm3 (4.6-6.2); White Blood Count 8.8 K/mm3 (4.4-11.0)
[2024-05-28 06:09] LABS: Anion Gap 8 (5-15); BUN 41 mg/dL (7-18); Calcium,Total 8.6 mg/dL (8.5-10.1); Chloride 95 mmol/L (98-107); Creatinine, Serum 1.95 mg/dL (0.70-1.30); EST Glomerular Filtration Rate 35 mL/min (>60); Est Glom Filt Rate - Afr Amer 42 mL/min (>60); Glucose 104 mg/dL (74-106); Potassium 3.5 mmol/L (3.5-5.1); Sodium Level 130 mmol/L (136-145)
--- NOTE | 2024-05-28 07:30 | NURSING ---
Pt up to BR with BELT AND LINK SHOP SUPERVISOR's and became clammy and pale. Pt was placed back into bed and vs and blood glucose taken. Pt stated that he felt better after laying down for a few moments.
[2024-05-28 07:55] VITALS: BP 117/68; PULSE 85; RESP 16; TEMP 36.4; O2SAT 97
[2024-05-28 09:44] LABS: Bedside Glucose 94 mg/dL (74-106)
[2024-05-28 10:05] VITALS: PULSE 85
[2024-05-28] MEDS: Metoprolol(XL)Succ 25 MG Tablet PO (10:05)
[2024-05-28] MEDS: Vibegron 75 MG TABLET PO (10:05)
[2024-05-28] MEDS: Ceftriaxone 2 GM in 0.9% Normal Saline (50mL MB+) 50 ML IV (10:05)
[2024-05-28 14:01] VITALS: BP 135/64; PULSE 68; RESP 16; TEMP 36.6; O2SAT 99
--- NOTE | 2024-05-28 15:54 | PCM.PN.HOSP ---
Subjective Subjective Doing well, no issues overnight Objective Data Objective Data Vital Signs: Vital Signs Temp Pulse Resp BP Pulse Ox O2 Del Method FiO2 97.8 F 68 16 135/64 H 99 Room Air 21 05/28/24 14:01 05/28/24 14:01 05/28/24 14:01 05/28/24 14:01 05/28/24 14:01 05/28/24 14:01 05/27/24 22:50 Oxygen Delivery Method Room Air Weight: 231 lb 4.238 oz Body Mass Index (BMI) 35.2 Intake & Output: Intake and Output for Last 24 Hours 05/27/24 05/28/24 05/29/24 03:59 03:59 03:59 Intake Total 1050 / 1050 1950 / 1950 450 / 450 Output Total 550 / 550 2925 / 2925 2024 Balance 500 / 500 -975 / -975 -1575 / -1575 Lab / Micro Data 05/28/24 05:11 05/28/24 05:11 Labs: Laboratory Results - last 24 hr 05/28/24 05:11: WBC 8.8, RBC 3.59 L, Hgb 11.2 L, Hct 33.6 L, MCV 93.6, MCH 31.2, MCHC 33.3, RDW Std Deviation 50.0 H, RDW Coeff of Olvin 14.6, Plt Count 227, MPV 11.2, Immature Gran % (Auto) 2.200 H, Neut % (Auto) 67.1, Lymph % (Auto) 14.2 L, [place] % (Auto) 13.4 H, Eos % (Auto) 2.4, Baso % (Auto) 0.7, Absolute Neuts (auto) 5.9, Absolute Lymphs (auto) 1.25, Nucleated RBC % 0, Sodium 130 L, Potassium 3.5, Chloride 95 L, Carbon Dioxide 28.0, Anion Gap 8, BUN 41 H, Creatinine 1.95 H, Estim Creat Clear Calc 33.70, Est GFR (MDRD) Af Amer 42 L, Est GFR (MDRD) Non-Af 35 L, BUN/Creatinine Ratio 21.0 H, Glucose 104, Calcium 8.6 05/28/24 07:34: POC Glucose 94 Micro: Microbiology 05/26/24 14:46 Blood Culture (Wb) - Anticubital Left Blood Culture - Preliminary No growth in 48 hours. 05/26/24 14:40 Urine, Catheterized Urine Culture - Final Proteus mirabilis Physical Exam Narrative General: Alert, Oriented x3, Cooperative, No apparent distress HEENT: Atraumatic, PERRLA, EOMI, Normocephalic Oral: Moist Mucosa Neck: Supple, No JVD Lungs: Diminished, Normal air movement, No rhonchi, No wheeze, No rales Cardiovascular: Regular rate, Regular Rhythm, Normal S1, Normal S2, No murmurs Abdomen: Soft, Non Tender, Non-Distended, No Hepato-splenomegaly Extremities: No edema, Capillary Refill Less than 3 Seconds Skin: No rashes, No breakdown Musculoskeletal: No Tenderness to Palpation of Joints or Extremities Neurological: No focal neurological deficits, Motor Exam 5/5 strength throughout, Sensory exam intact to light touch and pain Psych/Mental Status: Normal Affect, Appropriate Assessment & Plan Assessment/Plan (1) Debility: (2) Generalized weakness: (3) Urinary tract infection: QUALIFIERS: Urinary tract infection type: acute cystitis Hematuria presence: without hematuria Qualified Code(s): N30.00 - Acute cystitis without hematuria PLAN: Plan 1. Acute on chronic debility with inability to complete ADLs likely due to Proteus UTI ? Continue with Rocephin ? PT/OT ? May need SNF placement on discharge as he lives alone 2. Chronic diastolic CHF/pulmonary hypertension/chronic A-fib ? Continue with his metoprolol ? Continue with his cholesterol medications ? Will hold his Aldactone and torsemide secondary to a slight elevation in creatinine ? Will hold his SGLT2 inhibitor secondary to the UTI ? Continue with Eliquis DVT: Eliquis Charges/Coding Visit Charges Inpatient E&M: 50656 Subs Hosp L2
[2024-05-28 21:20] VITALS: BP 159/82; PULSE 70; RESP 18; TEMP 36.5; O2SAT 98
[2024-05-28] MEDS: 0.9% Saline Lock 10 ML Syringe IV (21:32)
[2024-05-28] MEDS: Atorvastatin Calcium 40 MG Tablet PO (21:33)
--- NOTE | 2024-05-28 23:47 | CPS ---
Pt refuses cpap tonite. Only wants to wear chin strap. RN aware.
[2024-05-29] VITALS (8 sets, daily range): BP systolic 132–149; BP diastolic 68–85; PULSE 62–81; RESP 13–18; TEMP 36.4–36.6; O2SAT 93–100
[2024-05-29 06:43] LABS: Anion Gap 9 (5-15); BUN 38 mg/dL (7-18); BUN/Creat Ratio 22.4 RATIO (10-20); Calcium,Total 8.7 mg/dL (8.5-10.1); Chloride 95 mmol/L (98-107); EST Glomerular Filtration Rate 41 mL/min (>60); Est Glom Filt Rate - Afr Amer 50 mL/min (>60); Estimated Creatinine Clearance 38.65 ml/min; Glucose 94 mg/dL (74-106); Potassium 3.8 mmol/L (3.5-5.1); Sodium Level 128 mmol/L (136-145)
[2024-05-29] MEDS: Nystatin Powder 15gm Bottle 1 APPLIC TOPICAL ×3 (06:54→21:23)
[2024-05-29] MEDS: Menthol/Lanolin/Calamine/Znox 113 GM Tube 1 APPLIC TOPICAL ×3 (06:55→21:24)
[2024-05-29] MEDS: Ceftriaxone 2 GM in 0.9% Normal Saline (50mL MB+) 50 ML IV (08:41)
[2024-05-29] MEDS: 0.9% Normal Saline (1000mL) 1,000 ML 75 ML IV (08:41)
[2024-05-29] MEDS: Metoprolol(XL)Succ 25 MG Tablet PO (08:48)
[2024-05-29] MEDS: Vibegron 75 MG TABLET PO (08:49)
--- NOTE | 2024-05-29 10:11 | PN.HOSP_ITS ---
Subjective Subjective Has been having frequent episodes of diarrhea whenever he stands up, stool studies are pending Objective Data Objective Data Vital Signs: Vital Signs Temp Pulse Resp BP Pulse Ox O2 Del Method FiO2 97.5 F L 65 13 148/78 H 96 Room Air 21 05/29/24 08:37 05/29/24 08:48 05/29/24 08:37 05/29/24 08:37 05/29/24 08:37 05/29/24 08:45 05/27/24 22:50 Oxygen Delivery Method Room Air Weight: 231 lb 4.238 oz Body Mass Index (BMI) 35.2 Intake & Output: Intake and Output for Last 24 Hours 05/28/24 05/29/24 05/30/24 03:59 03:59 03:59 Intake Total 1950 / 1950 800 / 800 230 / 230 Output Total 2925 / 2925 3325 / 3325 1200 / 1200 Balance -975 / -975 -2525 / -2525 -970 / -970 Lab / Micro Data 05/28/24 05:11 05/29/24 05:43 Labs: Laboratory Results - last 24 hr 05/29/24 05:43: Sodium 128 L, Potassium 3.8, Chloride 95 L, Carbon Dioxide 25.0, Anion Gap 9, BUN 38 H, Creatinine 1.70 H, Estim Creat Clear Calc 38.65, Est GFR (MDRD) Af Amer 50 L, Est GFR (MDRD) Non-Af 41 L, BUN/Creatinine Ratio 22.4 H, Glucose 94, Calcium 8.7 Micro: Microbiology 05/26/24 14:46 Blood Culture (Wb) - Anticubital Left Blood Culture - Preliminary No growth in 48 hours. 05/26/24 14:40 Urine, Catheterized Urine Culture - Final Proteus mirabilis Physical Exam Narrative General: Alert, Oriented x3, Cooperative, No apparent distress HEENT: Atraumatic, PERRLA, EOMI, Normocephalic Oral: Moist Mucosa Neck: Supple, No JVD Lungs: Diminished, Normal air movement, No rhonchi, No wheeze, No rales Cardiovascular: Regular rate, Regular Rhythm, Normal S1, Normal S2, No murmurs Abdomen: Soft, Non Tender, Non-Distended, No Hepato-splenomegaly Extremities: No edema, Capillary Refill Less than 3 Seconds Skin: No rashes, No breakdown Musculoskeletal: No Tenderness to Palpation of Joints or Extremities Neurological: No focal neurological deficits, Motor Exam 5/5 strength throughout, Sensory exam intact to light touch and pain Psych/Mental Status: Normal Affect, Appropriate Assessment & Plan Assessment/Plan (1) Debility: (2) Generalized weakness: (3) Urinary tract infection: QUALIFIERS: Urinary tract infection type: acute cystitis H ematuria presence: without hematuria Qualified Code(s): N30.00 - Acute cystitis without hematuria PLAN: Plan 1. Acute on chronic debility with inability to complete ADLs likely due to Proteus UTI ? Continue with Rocephin ? PT/OT ? May need SNF placement on discharge as he lives alone 2. Chronic diastolic CHF/pulmonary hypertension/chronic A-fib ? Continue with his metoprolol ? Continue with his cholesterol medications ? Will hold his Aldactone and torsemide secondary to a slight elevation in creatinine ? Will hold his SGLT2 inhibitor secondary to the UTI ? Continue with Eliquis 3. Hyponatremia ? Renal functions improving however his sodium continues to drop ? Will give him a liter to normal saline DVT: Eliquis Charges/Coding Visit Charges Inpatient E&M: 72149 Subs Hosp L2
--- NOTE | 2024-05-29 13:56 | CASEMGMT ---
RN DEMIAN reviewed progress with therapy, 18 feet contact guard. RN CM in to discuss progress with therapy. Patient states he does not feel safe to discharge to home at this time but is hopeful that he will be better and go home at discharge. RN DEMIAN asked patient if he is willing to go to SNF at discharge if he doesn't imporve with therapy. Patient states he is agreeable and prefers [facility], patient declined list. APPLE ARCINIEGA updated patient that if he does improve with therapy, the plan could be changed and could go home with possible HHC. Patient voiced understanding and gave permission to send referral to [facility]. Patient had no further questions or concerns. APPLE ARCINIEGA updated discharge demand planning manager. CM will continue to follow this patient and plan for a safe discharge.
--- NOTE | 2024-05-29 13:59 | CASEMGMT ---
Addendum entered by Sara Sutton 05/29/24 15:09: [facility] has accepted. SW updated. Sara Sutton DC Planning Asst. Original Note: Discharge Planning Referral sent via [facility] to [facility]. Sara Sutton DC Planning Asst.
--- NOTE | 2024-05-29 14:12 | CASEMGMT ---
SW was informed patient is possibly interested in [facility]. Sara will send a referral to [facility]. Karli Pedraza MSW [place]
--- NOTE | 2024-05-29 16:23 | CASEMGMT ---
Patient was accepted at [facility]. SW completed a PASRR in [employer] system. Plan: d/c to [facility] under skilled level of care when medically ready. Karli BRAVO
[2024-05-29] MEDS: Atorvastatin Calcium 40 MG Tablet PO (21:25)
--- NOTE | 2024-05-29 23:11 | CPS ---
Pt declines use of cpap tonight, wants his chin strap only.
[2024-05-30] VITALS (7 sets, daily range): BP systolic 109–165; BP diastolic 57–84; PULSE 65–81; RESP 16–18; TEMP 35.7–37; O2SAT 93–100
[2024-05-30] MEDS: Menthol/Lanolin/Calamine/Znox 113 GM Tube 1 APPLIC TOPICAL ×3 (06:17→20:25)
[2024-05-30] MEDS: Nystatin Powder 15gm Bottle 1 APPLIC TOPICAL ×3 (06:18→20:25)
[2024-05-30 07:03] LABS: Absolute Lymphocyte Count 1.37 X10^3/uL (0.83-4.51); Absolute Neutrophil Count 4.9 X10^3/uL (2.0-7.7); Basophil% 1.3 % (0-1); Eosinophil# 0.37 X10^3/uL; Eosinophils% 4.7 % (0-5); Hematocrit 36.5 % (40-54); Hemoglobin 12.4 g/dL (13.0-16.5); Lymphocyte # 1.37 X10^3/ul (0.83-4.51); Lymphocyte % 17.3 % (19-41); Mean Corpuscular Hgb 31.4 pg (27.0-32.0); Mean Corpuscular Volume 92.4 fL (80-94); Mean Platelet Vol. 11.4 fl (6.2-12.0); Monocyte# 0.85 X10^3/uL; Monocyte% 10.8 % (0-10); NRBC Flagged by Analyzer 0 % (0-5); Neutrophil # 4.88 X10^3/uL (2.7-7.7); Neutrophil % 61.7 % (47-70); Platelet Count 234 K/mm3 (150-450); RBC Distribution Width CV 14.6 % (11.6-14.6); RBC Distribution Width SD 49.2 fl (35.1-43.9); Red Blood Count 3.95 M/mm3 (4.6-6.2); White Blood Count 7.9 K/mm3 (4.4-11.0)
[2024-05-30 07:35] LABS: Anion Gap 8 (5-15); BUN 33 mg/dL (7-18); BUN/Creat Ratio 20.4 RATIO (10-20); Chloride 98 mmol/L (98-107); Creatinine, Serum 1.62 mg/dL (0.70-1.30); EST Glomerular Filtration Rate 43 mL/min (>60); Est Glom Filt Rate - Afr Amer 53 mL/min (>60); Estimated Creatinine Clearance 40.56 ml/min; Glucose 95 mg/dL (74-106); Potassium 4.3 mmol/L (3.5-5.1); Sodium Level 132 mmol/L (136-145)
[2024-05-30] MEDS: Vibegron 75 MG TABLET PO (09:50)
[2024-05-30] MEDS: Metoprolol(XL)Succ 25 MG Tablet PO (09:50)
[2024-05-30] MEDS: Ceftriaxone 2 GM in 0.9% Normal Saline (50mL MB+) 50 ML IV (09:50)
[2024-05-30] MEDS: 0.9% Saline Lock 10 ML Syringe IV (09:51)
--- NOTE | 2024-05-30 12:39 | PCM.PN.HOSP ---
Reason for Visit Reason for Visit: Diagnoses Acute cystitis without hematuria (05/26/24) Weakness (05/26/24) Other malaise (05/26/24) Subjective Subjective Saw patient at bedside this morning. Sitting up comfortably in bedside chair, conversing normally, no acute distress. Does continue to report dizziness and lightheadedness with standing and moving with therapy which is concerning to him. He has now not had a bowel movement in 2 days when previously he was having loose bowel movements and this also concerns him. Otherwise no other complaints today. Objective Data Objective Data Vital Signs: Vital Signs Temp Pulse Resp BP Pulse Ox O2 Del Method FiO2 98.6 F 68 16 138/63 H 93 Room Air 21 05/30/24 06:21 05/30/24 09:50 05/30/24 06:21 05/30/24 09:50 05/30/24 07:02 05/30/24 07:02 05/27/24 22:50 Oxygen Delivery Method Room Air Weight: 104.9 kg Body Mass Index (BMI) 35.2 Intake & Output: Intake and Output for Last 24 Hours 05/28/24 05/29/24 05/30/24 23:59 23:59 23:59 Intake Total 800 / 800 1230 / 1230 Output Total 3325 / 3325 3050 / 3050 Balance -2525 / -2525 -1820 / -1820 Lab / Micro Data 05/30/24 06:10 05/30/24 06:10 Labs: Laboratory Results - last 24 hr 05/30/24 06:10: WBC 7.9, RBC 3.95 L, Hgb 12.4 L, Hct 36.5 L, MCV 92.4, MCH 31.4, MCHC 34.0, RDW Std Deviation 49.2 H, RDW Coeff of Olvin 14.6, Plt Count 234, MPV 11.4, Immature Gran % (Auto) 4.200 H, Neut % (Auto) 61.7, Lymph % (Auto) 17.3 L, [place] % (Auto) 10.8 H, Eos % (Auto) 4.7, Baso % (Auto) 1.3 H, Absolute Neuts (auto) 4.9, Absolute Lymphs (auto) 1.37, Nucleated RBC % 0, Sodium 132 L, Potassium 4.3, Chloride 98, Carbon Dioxide 26.0, Anion Gap 8, BUN 33 H, Creatinine 1.62 H, Estim Creat Clear Calc 40.56, Est GFR (MDRD) Af Amer 53 L, Est GFR (MDRD) Non-Af 43 L, BUN/Creatinine Ratio 20.4 H, Glucose 95, Calcium 9.0 Micro: Microbiology 05/26/24 14:46 Blood Culture (Wb) - Anticubital Left Blood Culture - Preliminary No growth in 48 hours. 05/26/24 14:40 Urine, Catheterized Urine Culture - Final Proteus mirabilis Physical Exam Const alert, oriented x3 and no apparent distress Constitutional Narrative: Elderly male, class II obesity, mildly fatigued appearing but otherwise laying back comfortably in bed, conversing normally, in no acute distress. General Appearance: cooperative and comfortable HEENT normocephalic, head/scalp atraumatic, hearing grossly normal bilaterally, nasal mucous membranes and turbinates normal and moist oral mucous membranes Eyes PERRL, EOMs intact bilaterally and conjunctivae normal Neck full ROM Chest inspection of chest normal Resp normal respiratory effort, normal air movement, no use of accessory muscles and clear to auscultation bilaterally Cardio regular rate, regular rhythm, no murmurs and peripheral pulses 2+ throughout GI normal to inspection, nondistended, normoactive bowel sounds, soft to palpation, non-tender and non-distended no CVA tenderness Bladder / Kidney Exam: catheter in place and bladder normal to palpation Back/Spine normal ROM Extremity Extremity Narrative: Chronic venous stasis changes noted bilaterally. No edema noted. Neuro oriented x3, moves all extremities and no focal motor deficits Speech: speech normal Psych mental status grossly normal Assessment & Plan Assessment/Plan (1) Debility: (2) Generalized weakness: (3) Urinary tract infection: QUALIFIERS: Urinary tract infection type: acute cystitis Hematuria presence: without hematuria Qualified Code(s): N30.00 - Acute cystitis without hematuria PLAN: Plan Patient is an 83-year-old male who presented [facility] ED on 05/26/2024 with worsening weakness with dizziness. 1. Acute on chronic debility ? PT/OT/case management following. Patient lives at home alone but has a private aide that comes in 3 times per week. Suspect primarily chronic issues but with some worsening due to UTI. Accepted to SNF at [facility], stable for discharge home medically ready as of 05/30. 2. 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 Creatinine 2.31 on admit. Baseline creatinine 1.6-2.0. Suspect due to mild dehydration in setting of home diuretics. Given IV fluids in the ED. Slowly improved back to baseline by 05/30. Continue holding torsemide, spironolactone and dapagliflozin for now. 3. Proteus UTI ? UA showed 500 leukocyte esterase, negative nitrates, 50-100 WBCs, 0 bacteria. Urine culture grew greater than 100,000 Proteus. Continue IV ceftriaxone, will plan for 7-day course of antibiotics total, stop date 06/01. 4. Chronic HFpEF with pulmonary hypertension ? Follows with outpatient cardiology. Dry on admission, not in heart failure exacerbation. Continue home Toprol and atorvastatin. Holding home spironolactone, torsemide and dapagliflozin as noted above. 5. Chronic A-fib ? Mild A-fib with RVR on admit that improved with IV fluids. Continue home Toprol and Eliquis. 6. Hyponatremia, improving ? Sodium down trended to jane of 128 on 05/29, given 1 L of normal saline with improvement to 132. Continue to monitor daily sodium and can consider further small boluses as needed. Chronic medical conditions: ? Class II obesity: BMI 35 on admit. Complicates hospital course, care and prognosis. ? 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 ? Urinary incontinence: Medina catheter placed on admission as noted above. Tolerated Medina without significant issue. Medina removed on 05/30 in preparation for discharge, will follow-up void trial. ? History of mitral valve repair DVT prophylaxis: Not indicated, on Eliquis CODE STATUS: DNR CCA, DNI Expect disposition: SNF, 1 to 2 days Total clinical time spent by myself addressing the patient's medical issues, reviewing all the data, and collaborating with patient's care team: 35 minutes. Charges/Coding Visit Charges Inpatient E&M: 98208 Subs Hosp L2
[2024-05-30] MEDS: Atorvastatin Calcium 40 MG Tablet PO (20:27)
[2024-05-31 01:01] VITALS: BP 127/68; PULSE 72; RESP 16; TEMP 36.1; O2SAT 93
--- NOTE | 2024-05-31 01:32 | CPS ---
pt declines use of our cpap.
[2024-05-31] MEDS: Nystatin Powder 15gm Bottle 1 APPLIC TOPICAL ×2 (05:37→13:21)
[2024-05-31] MEDS: Menthol/Lanolin/Calamine/Znox 113 GM Tube 1 APPLIC TOPICAL ×2 (05:38→13:22)
[2024-05-31 07:07] LABS: Anion Gap 7 (5-15); BUN 37 mg/dL (7-18); BUN/Creat Ratio 23.7 RATIO (10-20); Calcium,Total 8.8 mg/dL (8.5-10.1); Chloride 100 mmol/L (98-107); Creatinine, Serum 1.56 mg/dL (0.70-1.30); EST Glomerular Filtration Rate 45 mL/min (>60); Est Glom Filt Rate - Afr Amer 55 mL/min (>60); Estimated Creatinine Clearance 42.12 ml/min; Glucose 96 mg/dL (74-106); Potassium 4.4 mmol/L (3.5-5.1); Sodium Level 133 mmol/L (136-145)
[2024-05-31 07:25] VITALS: PULSE 78
[2024-05-31 09:52] VITALS: BP 131/72; PULSE 72; RESP 16; TEMP 36.4; O2SAT 98
[2024-05-31 10:09] VITALS: PULSE 72
[2024-05-31] MEDS: Vibegron 75 MG TABLET PO (10:09)
[2024-05-31] MEDS: Metoprolol(XL)Succ 25 MG Tablet PO (10:09)
[2024-05-31] MEDS: 0.9% Saline Lock 10 ML Syringe IV (10:10)
[2024-05-31] MEDS: Ceftriaxone 2 GM in 0.9% Normal Saline (50mL MB+) 50 ML IV (10:14)
[2024-05-31] MEDS: APIXABAN 2.5 MG TABLET (WCH) PO (10:58)
--- NOTE | 2024-05-31 11:03 | NURSING ---
Has been unable to collect a stool specimen because patient has been having solid stool per Amber Mata RN
--- NOTE | 2024-05-31 11:08 | TREXTCAR_ITS ---
Diet Diet Order/Speech Therapy: 05/26/24 16:17 Diet: Cardiac - Heart Healthy Food consistency:: Regular Liquid Consistency:: Regular/Thin Routine Orders/Code Status Code Status: DNRCC-A (DO NOT INTUBATE) DC O2, CPAP, BIPAP needs PSN CPAP & BiPAP: BiPAP & CPAP Settings per PSN Mode CPAP 05/31/24 01:32 Bipap Delivery Device Face Mask 05/27/24 22:50 BiPAP Expiratory Pressure 8 05/27/24 22:50 Fraction of Inspired Oxygen ( 21 05/27/24 22:50 FIO2) Additional Home O2 Discharge instructions: No Therapies Weight Bearing: Full weight bearing Physical Therapy: Eval and Treat Occupational Therapy: Eval and Treat Problem/Diagnosis (1) Debility: Status: Acute Code(s): R53.81 - Other malaise (2) Generalized weakness: Status: Acute Code(s): R53.1 - Weakness (3) Urinary tract infection: Status: Acute Code(s): N39.0 - Urinary tract infection, site not specified Plan Patient is an 83-year-old male who presented [facility] ED on 05/26/2024 with worsening weakness with dizziness. Hospital course as noted below. Patient discharged to SNF in stable condition on 05/31. 1. Acute on chronic debility ? PT/OT/case management followed. Patient lives at home alone but has a private aide that comes in 3 times per week. Suspect primarily chronic issues but with some worsening due to UTI. Discharged to SNF at [facility] in stable condition on 05/31. 2. 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 Creatinine 2.31 on admit. Baseline creatinine 1.6-2.0. Suspect due to mild dehydration in setting of home diuretics. Given IV fluids in the ED. Slowly improved back to baseline by 05/30. Held torsemide, spironolactone and dapagliflozin while inpatient. Will restart torsemide at 20 mg every other day on discharge. Will restart spironolactone at 12.5 mg daily. Restart home dapagliflozin daily. 3. Proteus UTI ? UA showed 500 leukocyte esterase, negative nitrates, 50-100 WBCs, 0 bacteria. Urine culture grew greater than 100,000 Proteus. Completed course of IV ceftriaxone while here. 4. Chronic HFpEF with pulmonary hypertension ? Follows with outpatient cardiology. Dry on admission, not in heart failure exacerbation. Continue home Toprol and atorvastatin. Held torsemide, spironolactone and dapagliflozin while inpatient. Medication changes on discharge as noted above. 5. Chronic A-fib ? Mild A-fib with RVR on admit that improved with IV fluids. Continue home Toprol and Eliquis. 6. Hyponatremia, improving ? Sodium down trended to jnae of 128 on 05/29, given 1 L of normal saline with improvement to 132. Stable at 133 on day of discharge. Chronic medical conditions: ? Class II obesity: BMI 35 on admit. Complicated hospital course, care and prognosis. ? 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 ? Urinary incontinence: Medina catheter placed on admission as noted above. Tolerated Medina without significant issue. Medina removed on 05/30 in preparation for discharge when patient had recurrence of incontinence on evening of 05/30. Patient has been doing frequent pad/adult diaper changes at home, will need to continue this on discharge. Notably did decrease his home diuretic regimen to hopefully decrease frequency of urine output. ? History of mitral valve repair Total clinical time spent by myself addressing the patient's medical issues, reviewing all the data, and collaborating with patient's care team: 35 minutes. Allergies/Procedures Done in Hospital Allergies No Known Allergies Allergy (Verified 05/26/24 13:14) Procedures: EKG and - (Chest x-ray) Type of Care/Length of Stay Estimated LOS: Convalescent Care Less Than 30 days Type of Care Needed: Skilled Rehab Potential: Fair Prognosis: Fair Additional Orders/Day of Discharge H&P will serve as current which was dated: 05/26/24 Day of Discharge: 05/31/24 Dietary and Speech Recommendations Dietitian Recommendations/Changes: Continue Cardiac diet to manage medical conditions. Discharge Plan Admission Admit Date/Time: 05/26/24 15:45 Primary Reason for Your Visit: Worsening weakness with dizziness Attending Provider: Quincy Vivas Primary Care Provider: Kodak Hernandez Consulting Providers: Quincy Vivas; Boone Abraham Discharge Orders/Prescriptions Prescriptions: New nystatin [Nyamyc] 100,000 unit/gram Powder 1 applic topical TID Qty: 0 0RF Protocol: *Topical Application Instructions APPLICATION INSTRUCTIONS: apply groin /under breasts torsemide 20 mg tablet 20 mg PO QODAY 30 Days Qty: 15 0RF spironolactone 25 mg tablet 12.5 mg PO DAILY 30 Days Qty: 15 0RF Continued atorvastatin 40 mg tablet 40 mg PO QHS Eliquis 2.5 mg tablet 2.5 mg PO BID Qty: 180 3RF acetaminophen 325 mg Tablet 650 mg PO Q6H PRN PRN (Reason: Pain 1-10 Or Fever>100.7) Qty: 0 0RF menthol-zinc oxide [Calmoseptine] 0.44-20.6 % Ointment 1 applic topical TID Qty: 0 0RF Protocol: *Topical Application Instructions APPLICATION INSTRUCTIONS: Buttocks/Groin/Abd folds metoprolol succinate 25 mg tablet extended release 24 hr 25 mg PO DAILY Qty: 90 3RF dapagliflozin propanediol [Farxiga] 10 mg tablet 10 mg PO DAILY Qty: 90 3RF Discontinued spironolactone 25 mg tablet 25 mg PO DAILY Qty: 30 11RF torsemide 20 mg tablet
--- NOTE | 2024-05-31 11:09 | DS.PCM_ITS ---
Providers Date of Admission: 05/26/24 Primary Care Physician: Dr. Kodak Hernandez MD Reason For Visit: TIMBO, CONCERN FOR UTI, WEAKNESS Diagnosis Discharge Diagnosis (1) Debility: Status: Acute Code(s): R53.81 - Other malaise (2) Generalized weakness: Status: Acute Code(s): R53.1 - Weakness (3) Urinary tract infection: Status: Acute Code(s): N39.0 - Urinary tract infection, site not specified Qualifiers: Urinary tract infection type: acute cystitis Hematuria presence: w ithout hematuria Qualified Code(s): N30.00 - Acute cystitis without hematuria Plan Patient is an 83-year-old male who presented [facility] ED on 05/26/2024 with worsening weakness with dizziness. 1. Acute on chronic debility ? PT/OT/case management following. Patient lives at home alone but has a private aide that comes in 3 times per week. Suspect primarily chronic issues but with some worsening due to UTI. Accepted to SNF at [facility], stable for discharge home medically ready as of 05/30. 2. 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 Creatinine 2.31 on admit. Baseline creatinine 1.6-2.0. Suspect due to mild dehydration in setting of home diuretics. Given IV fluids in the ED. Slowly improved back to baseline by 05/30. Continue holding torsemide, spironolactone and dapagliflozin for now. 3. Proteus UTI ? UA showed 500 leukocyte esterase, negative nitrates, 50-100 WBCs, 0 bacteria. Urine culture grew greater than 100,000 Proteus. Continue IV ceftriaxone, will plan for 7-day course of antibiotics total, stop date 06/01. 4. Chronic HFpEF with pulmonary hypertension ? Follows with outpatient cardiology. Dry on admission, not in heart failure exacerbation. Continue home Toprol and atorvastatin. Holding home spironolactone, torsemide and dapagliflozin as noted above. 5. Chronic A-fib ? Mild A-fib with RVR on admit that improved with IV fluids. Continue home Toprol and Eliquis. 6. Hyponatremia, improving ? Sodium down trended to jane of 128 on 05/29, given 1 L of normal saline with improvement to 132. Continue to monitor daily sodium and can consider further small boluses as needed. Chronic medical conditions: ? Class II obesity: BMI 35 on admit. Complicates hospital course, care and prognosis. ? 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 ? Urinary incontinence: Medina catheter placed on admission as noted above. Tolerated Medina without significant issue. Medina removed on 05/30 in preparation for discharge, will follow-up void trial. ? History of mitral valve repair DVT prophylaxis: Not indicated, on Eliquis CODE STATUS: DNR CCA, DNI Expect disposition: SNF, 1 to 2 days Total clinical time spent by myself addressing the patient's medical issues, reviewing all the data, and collaborating with patient's care team: 35 minutes. Medications at Discharge Home Medications atorvastatin 40 mg tablet 40 mg PO QHS cholesterol 01/25/22 acetaminophen 325 mg tablet 650 mg (2 x 325 mg) PO Q6H PRN PRN Pain 1-10 Or Fever>100.7 #0 tabs 03/05/23 menthol 0.44 %-zinc oxide 20.6 % topical ointment (Calmoseptine) 1 applic topical TID #0 grams 03/05/23 spironolactone 25 mg tablet 25 mg PO DAILY #30 tabs 07/01/23 metoprolol succinate 25 mg tablet,extended release 24 hr 25 mg PO DAILY blood pressur #90 tabs 08/26/23 apixaban 2.5 mg tablet (Eliquis) 2.5 mg PO BID #180 tabs 09/27/23 torsemide 20 mg tablet 20 mg PO DAILY #90 tabs 09/27/23 dapagliflozin propanediol 10 mg tablet (Farxiga) 10 mg PO DAILY #90 tabs 05/26/24 Weight / BMI Weight Weight: 104.9 kg Body Mass Index (BMI) 35.2 ABG / Lab / Microbiology Data 05/30/24 06:10 05/31/24 04:45 Laboratory: Laboratory Results - last 24 hr 05/31/24 04:45: Sodium 133 L, Potassium 4.4, Chloride 100, Carbon Dioxide 26.0, Anion Gap 7, BUN 37 H, Creatinine 1.56 H, Estim Creat Clear Calc 42.12, Est GFR (MDRD) Af Amer 55 L, Est GFR (MDRD) Non-Af 45 L, BUN/Creatinine Ratio 23.7 H, Glucose 96, Calcium 8.8 Microbiology: Microbiology 05/26/24 14:46 Blood Culture (Wb) - Anticubital Left Blood Culture - Preliminary No growth in 48 hours. 05/26/24 14:40 Urine, Catheterized Urine Culture - Final Proteus mirabilis D/C Instructions DC O2, CPAP, BIPAP Needs PSN CPAP & BiPAP: BiPAP & CPAP Settings per PSN Mode CPAP 05/31/24 01:32 Bipap Delivery Device Face Mask 05/27/24 22:50 BiPAP Expiratory Pressure 8 05/27/24 22:50 Fraction of Inspired Oxygen ( 21 05/27/24 22:50 FIO2) Meaningful Use Info Ischemic Stroke Statin Dosing Therapy Reference: STATIN DOSE THERAPY REFERENCE: * Patients > 75 years receive moderate or high dose statin therapy. * Patients 75 years or YOUNGER should receive HIGH intensity statin dose unless contraindicated. You will be required to document reason for non-treatment if statin daily dose does not meet guidelines. HIGH DOSE STATIN THERAPY DAILY Atorvastatin > than or = to 40 mg Rosuvastatin > than or = to 20 mg Amlodipine + Atorvastatin > than or = to 2.5/40 mg Ezetimibe + Simvastatin 10/80 mg Simvastatin 80mg Discharge Plan Admission Admit Date/Time: 05/26/24 15:45 Attending Provider: Quincy Vivas Primary Care Provider: Kodak Hernandez Consulting Providers: Quincy Vivas; Boone Abraham Discharge Orders/Prescriptions Prescriptions: No Action atorvastatin 40 mg tablet 40 mg PO QHS spironolactone 25 mg tablet 25 mg PO DAILY Qty: 30 11RF torsemide 20 mg tablet 20 mg PO DAILY Qty: 90 3RF Eliquis 2.5 mg tablet 2.5 mg PO BID Qty: 180 3RF acetaminophen 325 mg Tablet 650 mg PO Q6H PRN PRN (Reason: Pain 1-10 Or Fever>100.7) Qty: 0 0RF menthol-zinc oxide [Calmoseptine] 0.44-20.6 % Ointment 1 applic topical TID Qty: 0 0RF Protocol: *Topical Application Instructions APPLICATION INSTRUCTIONS: Buttocks/Groin/Abd folds metoprolol succinate 25 mg tablet extended release 24 hr 25 mg PO DAILY Qty: 90 3RF dapagliflozin propanediol [Farxiga] 10 mg tablet 10 mg PO DAILY Qty: 90 3RF Referrals / Follow Up: Jerrell Hermosillo MD [Med Staff - Active Staff] - 09/01/24 10:30 am (As previously scheduled. ) Kodak Hernandez MD [Primary Care Provider] -
--- NOTE | 2024-05-31 11:09 | PCM.DC.SUM ---
Providers Date of Admission: 05/26/24 Date of Discharge: 05/31/24 Primary Care Physician: Dr. Kodak Hernandez MD Reason For Visit: TIMBO, CONCERN FOR UTI, WEAKNESS Diagnosis Discharge Diagnosis (1) Debility: Status: Acute Code(s): R53.81 - Other malaise (2) Generalized weakness: Status: Acute Code(s): R53.1 - Weakness (3) Urinary tract infection: Status: Acute Code(s): N39.0 - Urinary tract infection, site not specified Qualifiers: Hematuria presence: without hematuria Urinary tract infection type: acute cystitis Qualified Code(s): N30.00 - Acute cystitis without hematuria Medications at Discharge Home Medications atorvastatin 40 mg tablet 40 mg PO QHS cholesterol 01/25/22 acetaminophen 325 mg tablet 650 mg (2 x 325 mg) PO Q6H PRN PRN Pain 1-10 Or Fever>100.7 #0 tabs 03/05/23 menthol 0.44 %-zinc oxide 20.6 % topical ointment (Calmoseptine) 1 applic topical TID #0 grams 03/05/23 metoprolol succinate 25 mg tablet,extended release 24 hr 25 mg PO DAILY blood pressur #90 tabs 08/26/23 apixaban 2.5 mg tablet (Eliquis) 2.5 mg PO BID #180 tabs 09/27/23 dapagliflozin propanediol 10 mg tablet (Farxiga) 10 mg PO DAILY #90 tabs 05/26/24 nystatin 100,000 unit/gram topical powder (Nyamyc) 1 applic topical TID #0 grams 05/31/24 spironolactone 25 mg tablet 12.5 mg (1/2 x 25 mg) PO DAILY 30 days #15 tabs 05/31/24 torsemide 20 mg tablet 20 mg PO QODAY 30 days #15 tabs 05/31/24 Hospital Course Operations None Procedures EKG and - (Chest x-ray) Summary of Care Provided Minutes Spent on Discharge: 35 Hospital Course: Patient is an 83-year-old male who presented [facility] ED on 05/26/2024 with worsening weakness with dizziness. Hospital course as noted below. Patient discharged to SNF in stable condition on 05/31. 1. Acute on chronic debility ? PT/OT/case management followed. Patient lives at home alone but has a private aide that comes in 3 times per week. Suspect primarily chronic issues but with some worsening due to UTI. Discharged to SNF at [facility] in stable condition on 05/31. 2. 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 Creatinine 2.31 on admit. Baseline creatinine 1.6-2.0. Suspect due to mild dehydration in setting of home diuretics. Given IV fluids in the ED. Slowly improved back to baseline by 05/30. Held torsemide, spironolactone and dapagliflozin while inpatient. Will restart torsemide at 20 mg every other day on discharge. Will restart spironolactone at 12.5 mg daily. Restart home dapagliflozin daily. 3. Proteus UTI ? UA showed 500 leukocyte esterase, negative nitrates, 50-100 WBCs, 0 bacteria. Urine culture grew greater than 100,000 Proteus. Completed course of IV ceftriaxone while here. 4. Chronic HFpEF with pulmonary hypertension ? Follows with outpatient cardiology. Dry on admission, not in heart failure exacerbation. Continue home Toprol and atorvastatin. Held torsemide, spironolactone and dapagliflozin while inpatient. Medication changes on discharge as noted above. 5. Chronic A-fib ? Mild A-fib with RVR on admit that improved with IV fluids. Continue home Toprol and Eliquis. 6. Hyponatremia, improving ? Sodium down trended to jane of 128 on 05/29, given 1 L of normal saline with improvement to 132. Stable at 133 on day of discharge. Chronic medical conditions: ? Class II obesity: BMI 35 on admit. Complicated hospital course, care and prognosis. ? 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 ? Urinary incontinence: Medina catheter placed on admission as noted above. Tolerated Medina without significant issue. Medina removed on 05/30 in preparation for discharge when patient had recurrence of incontinence on evening of 05/30. Patient has been doing frequent pad/adult diaper changes at home, will need to continue this on discharge. Notably did decrease his home diuretic regimen to hopefully decrease frequency of urine output. ? History of mitral valve repair Total clinical time spent by myself addressing the patient's medical issues, reviewing all the data, and collaborating with patient's care team: 35 minutes. Physical Exam Const alert, oriented x3 and no apparent distress Constitutional Narrative: Elderly male, class II obesity, mildly fatigued appearing but otherwise laying back comfortably in bed, conversing normally, in no acute distress. Stable. General Appearance: cooperative and comfortable HEENT normocephalic, head/scalp atraumatic, hearing grossly normal bilaterally, nasal mucous membranes and turbinates normal and moist oral mucous membranes Eyes PERRL, EOMs intact bilaterally and conjunctivae normal Neck full ROM Chest inspection of chest normal Resp normal respiratory effort, normal air movement, no use of accessory muscles and clear to auscultation bilaterally Cardio regular rate, regular rhythm, no murmurs and peripheral pulses 2+ throughout GI normal to inspection, nondistended, normoactive bowel sounds, soft to palpation, non-tender and non-distended no CVA tenderness Bladder / Kidney Exam: catheter in place and bladder normal to palpation Back/Spine normal ROM Extremity Extremity Narrative: Chronic venous stasis changes noted bilaterally. No edema noted. Neuro oriented x3, moves all extremities and no focal motor deficits Speech: speech normal Psych mental status grossly normal Weight / BMI Weight Weight: 104.9 kg Body Mass Index (BMI) 35.2 ABG / Lab / Microbiology Data 05/30/24 06:10 05/31/24 04:45 Laboratory: Laboratory Results - last 24 hr 05/31/24 04:45: Sodium 133 L, Potassium 4.4, Chloride 100, Carbon Dioxide 26.0, Anion Gap 7, BUN 37 H, Creatinine 1.56 H, Estim Creat Clear Calc 42.12, Est GFR (MDRD) Af Amer 55 L, Est GFR (MDRD) Non-Af 45 L, BUN/Creatinine Ratio 23.7 H, Glucose 96, Calcium 8.8 Microbiology: Microbiology 05/26/24 14:46 Blood Culture (Wb) - Anticubital Left Blood Culture - Preliminary No growth in 48 hours. 05/26/24 14:40 Urine, Catheterized Urine Culture - Final Proteus mirabilis D/C Instructions DC O2, CPAP, BIPAP Needs PSN CPAP & BiPAP: BiPAP & CPAP Settings per PSN Mode CPAP 05/31/24 01:32 Bipap Delivery Device Face Mask 05/27/24 22:50 BiPAP Expiratory Pressure 8 05/27/24 22:50 Fraction of Inspired Oxygen ( 21 05/27/24 22:50 FIO2) Additional Home O2 Discharge instructions: No DC home with Oxygen: No Meaningful Use Info Meaningful Use Meaningful Use Diagnoses (Choose all that apply): None applicable Ischemic Stroke Statin Dosing Therapy Reference: STATIN DOSE THERAPY REFERENCE: * Patients > 75 years receive moderate or high dose statin therapy. * Patients 75 years or YOUNGER should receive HIGH intensity statin dose unless contraindicated. You will be required to document reason for non-treatment if statin daily dose does not meet guidelines. HIGH DOSE STATIN THERAPY DAILY Atorvastatin > than or = to 40 mg Rosuvastatin > than or = to 20 mg Amlodipine + Atorvastatin > than or = to 2.5/40 mg Ezetimibe + Simvastatin 10/80 mg Simvastatin 80mg Discharge Plan Admission Admit Date/Time: 05/26/24 15:45 Primary Reason for Your Visit: Worsening weakness with dizziness Attending Provider: Quincy Vivas Primary Care Provider: Kodak Hernandez Consulting Providers: Quincy Vivas; Boone Abraham Discharge Orders/Prescriptions Prescriptions: New nystatin [Nyamyc] 100,000 unit/gram Powder 1 applic topical TID Qty: 0 0RF Protocol: *Topical Application Instructions APPLICATION INSTRUCTIONS: apply groin /under breasts torsemide 20 mg tablet 20 mg PO QODAY 30 Days Qty: 15 0RF spironolactone 25 mg tablet 12.5 mg PO DAILY 30 Days Qty: 15 0RF Continued atorvastatin 40 mg tablet 40 mg PO QHS Eliquis 2.5 mg tablet 2.5 mg PO BID Qty: 180 3RF acetaminophen 325 mg Tablet 650 mg PO Q6H PRN PRN (Reason: Pain 1-10 Or Fever>100.7) Qty: 0 0RF menthol-zinc oxide [Calmoseptine] 0.44-20.6 % Ointment 1 applic topical TID Qty: 0 0RF Protocol: *Topical Application Instructions APPLICATION INSTRUCTIONS: Buttocks/Groin/Abd folds metoprolol succinate 25 mg tablet extended release 24 hr 25 mg PO DAILY Qty: 90 3RF dapagliflozin propanediol [Farxiga] 10 mg tablet 10 mg PO DAILY Qty: 90 3RF Discontinued spironolactone 25 mg tablet 25 mg PO DAILY Qty: 30 11RF torsemide 20 mg tablet 20 mg PO DAILY Qty: 90 3RF Referrals / Follow Up: Jerrell Hermosillo MD [Med Staff - Active Staff] - 09/01/24 10:30 am (As previously scheduled. ) Kodak Hernandez MD [Primary Care Provider] - Disposition Disposition (needs filled in before D/C Order can be placed): Senior Living Facility Charges/Coding Visit Charges Inpatient E&M: 68311 Disch Hosp >30min
[2024-05-31 13:15] VITALS: BP 136/77; PULSE 86; RESP 18; TEMP 36.4; O2SAT 95
--- NOTE | 2024-05-31 13:16 | NURSING ---
I spoke with Kamryn at [facility] to inform her that the pt will be d/c to their facility today and she stated she was going to have to make a call because she doesn't know anything about this pt coming to their facility today and she's not sure they have a bed for him. She stated she will call me right back as soon as she finds out if they will have a bed today.
--- NOTE | 2024-05-31 13:23 | NURSING ---
I spoke with Kamryn at [facility] and she stated everything is good and we can send the pt with a excelsior picker time of 1430.
--- NOTE | 2024-05-31 13:25 | NURSING ---
I spoke to the pt's son Duran to let him know the pt will be picked up at 1430 to be d/c to [facility].
== END 2024-05-31 15:16 | disposition skilled nursing facility (03) | DRG 690 ==
LOC: ED 15:34 → PCU 15:58
PROVIDERS: Family Medicine; Admitting Provider Hospitalist; Emergency Provider Emergency Medicine; PCP Family Medicine; Visit Provider Hospitalist
DX: N30.00 Acute cystitis without hematuria (principal); I13.0 Hypertensive heart and chronic kidney disease with heart failure and stage 1 through stage 4 chronic kidney disease, or unspecified chronic kidney disease; I48.20 Chronic atrial fibrillation, unspecified; E87.1 Hypo-osmolality and hyponatremia; I50.32 Chronic diastolic (congestive) heart failure; I27.20 Pulmonary hypertension, unspecified; E86.0 Dehydration; B96.4 Proteus (mirabilis) (morganii) as the cause of diseases classified elsewhere; N18.32 Chronic kidney disease, stage 3b; Z68.35 Body mass index [BMI] 35.0-35.9, adult; I25.10 Atherosclerotic heart disease of native coronary artery without angina pectoris; E78.5 Hyperlipidemia, unspecified; I95.9 Hypotension, unspecified; G47.33 Obstructive sleep apnea (adult) (pediatric); R19.7 Diarrhea, unspecified; R53.81 Other malaise; Z95.5 Presence of coronary angioplasty implant and graft; R53.1 Weakness; E66.812 Obesity, class 2; Z79.01 Long term (current) use of anticoagulants; Z99.89 Dependence on other enabling machines and devices; Z85.46 Personal history of malignant neoplasm of prostate; Z79.899 Other long term (current) drug therapy; Z90.49 Acquired absence of other specified parts of digestive tract; R79.89 Other specified abnormal findings of blood chemistry; R32 Unspecified urinary incontinence; Z79.84 Long term (current) use of oral hypoglycemic drugs
CPT/HCPCS: 36415; 51702; 71046; 80048; 80053; 81001; 82962; 83605; 83880; 84484; 85025; 85027; 87040; 87077; 87086; 87088; 87186; 93005; 94660; 97110; 97162; 97166; 97530; 97535; 99285; J7030; P9612; A4216; J0696

== ENCOUNTER 2024-07-24 08:28 | Inpatient (IN) | payer MEDICARE, SELFPAY ==
[2024-07-24] VITALS (10 sets, daily range): BP systolic 124–155; BP diastolic 66–97; PULSE 73–137; RESP 13–24; TEMP 36.6–37.1; O2SAT 94–99; BMI 33.0; BMI 36.5
--- NOTE | 2024-07-24 08:57 | CT_ITS ---
EXAM: CT Head Without Intravenous Contrast CLINICAL INDICATION: TECHNIQUE: Axial computed tomography images of the head/brain without intravenous contrast. This CT exam was performed using one or more of the following dose reduction techniques: automated exposure control, adjustment of the mA and/or kV according to patient size, and/or use of iterative reconstruction technique. COMPARISON: No relevant prior studies available. FINDINGS: BRAIN AND EXTRA-AXIAL SPACES: Areas of decreased attenuation in the deep cerebral white matter are consistent with small vessel ischemic/degenerative changes. The cerebral and cerebellar sulci are prominent consistent with brain atrophy. No acute intracranial hemorrhage, midline shift or mass effect. If symptoms persist, further evaluation with MRI is recommended. BONES/JOINTS: Unremarkable. No acute fracture. SOFT TISSUES: Unremarkable. SINUSES: Unremarkable as visualized. No acute sinusitis. MASTOID AIR CELLS: Unremarkable as visualized. No mastoid effusion. CT/Brain/Head without Contrast IMPRESSION: 1. Small vessel ischemic/degenerative changes. 2. Generalized brain atrophy. 3. No acute intracranial hemorrhage, midline shift or mass effect. If symptoms persist, further evaluation with MRI is recommended. Reading Location: [facility]
--- NOTE | 2024-07-24 08:57 | EKG12_ITS ---
Test Reason : Blood Pressure : */* mmHG Vent. Rate : 79 BPM Atrial Rate : * BPM P-R Int : * ms QRS Dur : 88 ms QT Int : 392 ms P-R-T Axes : * 68 49 degrees QTcB Int : 449 ms Atrial fibrillation with a competing junctional pacemaker Abnormal ECG Confirmed by BETSY CHAVES MD ([id number]), market editor DEANDRE TREVINO ([id number]) on 07/27/2024 6:31:51 AM Also confirmed by BETSY CHAVES MD ([id number]), market editor DEANDRE TREVINO ([id number]) on 07/27/2024 6:49:22 AM Referred By: JEFFREY Confirmed By: BETSY CHAVES MD
--- NOTE | 2024-07-24 09:00 | EDS_ITS ---
HPI History of Present Illness Chief Complaint: Weakness Informant: patient Onset/Context/Timing Onset: Month(s) Context: Gradual Onset Timing: Intermittent Quality: Spinning Location: Generalized Worsened by: Sitting up Relieved by: Laying flat Narrative Narrative: Patient presents with dizziness and weakness that has been intermittent over the past several months. Patient states his dizziness feels like everything is spinning. Patient states it is worse with sitting up. Patient states it is better with laying flat. Patient denies any chest pain or shortness of breath. Patient denies any nausea or vomiting. Patient denies any fevers or chills. Patient denies any headaches. [facility] Medical History Cataract (lens) fragments in eye following cataract surgery, left eye (HFpEF) heart failure with preserved ejection fraction Atherosclerosis of coronary artery of [place] heart without angina pectoris Nonrheumatic mitral (valve) insufficiency Venous stasis dermatitis of both lower extremities Hyperlipidemia Essential hypertension NASH on CPAP Prostate cancer Home Medications ?Medication ?Instructions ?Recorded ?Last Taken ?Type atorvastatin 40 mg tablet 40 mg PO QHS cholesterol 05/08 Unknown History acetaminophen 325 mg tablet 650 mg (2 x 325 mg) PO Q6H PRN PRN 03/05/23 Unknown Rx Pain 1-10 Or Fever>100.7 #0 tabs menthol 0.44 %-zinc oxide 20.6 % 1 applic topical TID #0 grams 03/05/23 Unknown Rx topical ointment (Calmoseptine) metoprolol succinate 25 mg 25 mg PO DAILY blood pressu r #90 08/26/23 Unknown Rx tablet,extended release 24 hr tabs apixaban 2.5 mg tablet (Eliquis) 2.5 mg PO BID #180 ta bs 09/27/23 Unknown Rx dapagliflozin propanediol 10 mg 10 mg PO DAILY #90 tab s 05/26/24 Unknown Rx tablet (Farxiga) nystatin 100,000 unit/gram topical 1 applic topical TI D #0 grams 05/31/24 Unknown Rx powder (Nyamyc) spironolactone 25 mg tablet 12.5 mg (1/2 x 25 mg) PO D AILY 30 05/31/24 Unknown Rx days #15 tabs torsemide 20 mg tablet 20 mg PO QODAY 30 days #15 t abs 05/31/24 Unknown Rx Allergy/AdvReac Type Severity Reaction Status Date / Time No Known Allergies Allergy Verified 07/24/24 08:36 Family History Other Prostate cancer Surgical History History of coronary artery stent placement History of mitral valve repair (09/19/21) History of right and left heart catheterization (09/04/21) History of prostate surgery History of appendectomy History of cardioversion (12/12/21) Social History current occupational status: retired Smoking Status: Never smoker alcohol intake: never caffeine: Yes ROS ROS ED Constitutional Constitutional ED: Denies chills or fever(s) Eyes Eyes: Denies blurry vision or change in vision ENT ENT ED: Denies rhinorrhea or sore throat Cardiovascular Cardiovascular: Denies chest pain or palpitations Respiratory/Chest Respiratory/Chest: Denies cough or dyspnea Gastrointestinal Gastrointestinal: Denies nausea or vomiting Genitourinary Genitourinary ED: Denies dysuria or hematuria Musculoskeletal Musculoskeletal: Reports neck pain; Denies back pain Integumentary Denies abscess or rash Neurologic Neurologic: Reports weakness; Denies headache(s) Allergic/Immunologic Allergic/Immunologic ED: Denies mouth swelling or urticaria EXAM Physical Exam Const Vital Signs: 07/24/24 08:29 07/24/24 09:50 07/24/24 10:29 Temperature 97.9 F Temperature Source Oral Pulse Rate 86 79 Pulse Rate [Lying] Pulse Rate [Sitting (for 1 minute prior to obtaining)] Respiratory Rate 24 H 21 H Respiratory Effort Normal Non-Labored Respiratory Pattern Normal Blood Pressure 132/79 H 124/72 H Blood Pressure [Lying] Blood Pressure Mean 96 89 Blood Pressure Mean [Lying] Pulse Ox 97 97 Oxygen Delivery Method Room Air Room Air 07/24/24 10:36 07/24/24 12:00 Temperature Temperature Source Pulse Rate 73 Pulse Rate [Lying] 80 Pulse Rate [Sitting (for 1 minute prior to obtaining)] 137 H Respiratory Rate 14 Respiratory Effort Respiratory Pattern Blood Pressure 141/66 H Blood Pressure [Lying] 149/80 H Blood Pressure Mean 91 Blood Pressure Mean [Lying] 103 Pulse Ox 94 Oxygen Delivery Method Room Air Positive well nourished and well developed Constitutional Narrative: BMI of 33.0 General Appearance ED: well developed and NAD HEENT Reports moist mucous membranes Neck supple and no JVD Resp normal respiratory effort and clear to auscultation bilaterally Cardio regular rate Rhythm: abnormal rhythm irregularly irregular GI non-tender and non-distended Palpation: soft Extremity General Extremety ED: Negative for edema or tenderness General Extremity: Negative for edema Neuro oriented x3, CN's II-XII intact bilaterally and no sensory deficits noted Sensorium / Orientation: alert Motor Exam: strength 5/5 throughout Psych mental status grossly normal MDM MDM MDM Narrative Medical decision making narrative: Differential diagnosis includes cardiac dysrhythmia, cardiac ischemia, electrolyte abnormality, dehydration, labyrinthitis, vertigo, stroke, and intracranial bleeding. CT scan of the brain will be obtained to assess for stroke or intracranial bleeding. Chest x-ray will be obtained to assess for pneumonia, congestive heart failure, and bronchitis. COVID-19, influenza, and RSV PCR will be obtained to assess for viral illness. CBC will be obtained to assess for leukocytosis and anemia. Basic metabolic profile will be obtained to assess for electrolyte abnormality and renal function. PT with INR and PTT will be obtained to assess for coagulopathy. Urinalysis will be obtained to assess for urinary tract infection and hematuria. Lab Data Attestation: I reviewed the patient's lab results. Lab results narrative: CBC was reviewed. There is a mild anemia with a hemoglobin of 11.8 and hematocrit of 36.3. Basic metabolic profile was reviewed. BUN was slightly elevated at 54 and creatinine was 2.50. These are increased from previous result. PT with INR and PTT were reviewed. Pro time was 15.7 and INR is 1.2. PTT was normal at 33.7. Initial high-sensitivity troponin was reviewed and was normal at 18. 2-hour repeat high-sensitivity troponin was reviewed and was normal at 20. COVID-19 PCR was reviewed and was positive. Influenza PCR was reviewed and was negative for influenza A and influenza B. RSV PCR was reviewed and was negative. Urinalysis was reviewed. Leukocyte esterase was 500 with 10-25 white blood cells and 2+ bacteria. Labs: Laboratory Results - last 24 hr 07/24/24 07/24/24 07/24/24 08:42 10:49 11:42 WBC 6.8 RBC 3.76 L Hgb 11.8 L Hct 36.3 L MCV 96.5 H MCH 31.4 MCHC 32.5 RDW Std Deviation 55.5 H RDW Coeff of [place]vin 15.5 H Plt Count 172 MPV 10.8 Immature Gran % (Auto) 2.400 H Neut % (Auto) 64.8 Lymph % (Auto) 16.4 L [place] % (Auto) 15.7 H Eos % (Auto) 0.4 Baso % (Auto) 0.3 Absolute Neuts (auto) 4.4 Absolute Lymphs (auto) 1.11 Nucleated RBC % 0 PT 15.7 H INR 1.2 APTT 33.7 Sodium 127 L Potassium 4.8 Chloride 93 L Carbon Dioxide 24.0 Anion Gap 10 BUN 54 H Creatinine 2.50 H Estim Creat Clear Calc 25.01 Est GFR (MDRD) Af Amer 32 L Est GFR (MDRD) Non-Af 26 L BUN/Creatinine Ratio 21.6 H Glucose 84 Calcium 8.7 Troponin I High Sens 18 20 Urine Color Straw Urine Clarity Sl. Cloudy Urine pH 7.0 Ur Specific [place] 1.005 Urine Protein 30 H Urine Glucose (UA) 100 H Urine Ketones Negative Urine Occult Blood 50 H Urine Nitrite Negative Urine Bilirubin Negative Urine Urobilinogen Normal Ur Leukocyte Esterase 500 H Urine RBC 0-5 SEEN Urine WBC 10-25 SEEN Ur Squamous Epith Cells 0 SEEN Ur Renal Epithelial Cell 0-5 SEEN Urine Bacteria 2+ Urine Mucus 0 SEEN Radiography Chest X-Ray - ED: 2 View, Read by ED Physician, Read by Radiologist and No Acute Disease Diagnostic Testing: Clinical Impression(s) from Imaging Studies Brain CT 07/24/24 08:57 IMPRESSION: 1. Small vessel ischemic/degenerative changes. 2. Generalized brain atrophy. 3. No acute intracranial hemorrhage, midline shift or mass effect. If symptoms persist, further evaluation with MRI is recommended. Reading Location: [facility] Chest X-Ray 07/24/24 09:30 IMPRESSION: Stable examination. Reading Location: [facility] CT scan of the brain was obtained. There is no acute intracranial abnormality. There are small vessel degenerative changes. There is some atrophy noted. This was interpreted by the radiologist and was also independently reviewed by myself. PA and lateral chest x-ray was obtained. There are 2 views. On my independent interpretation, lung pascal are clear. There is normal cardiac silhouette. Bony thorax is normal. There is no acute process noted. Radiologist also interpreted the x-ray and agrees. EKG Initial EKG: Attestation: I personally reviewed and interpreted this EKG as follows: Interpretation: No Acute Injury Pattern and Atrial Fibrillation Comments: EKG was obtained. Only independent interpretation, shows atrial fibrillation with a rate of 79. QRS interval is normal at 88 ms. QTc interval is normal at 449 ms. [place] was normal. There is no acute ST or T wave changes noted. Prior EKG tracings: available for review Prior: Unchanged (05/26/2024) Treatment and Re-Evaluation :: Patient was given IV fluids. Patient was given Ancef for his UTI. Patient was unable to ambulate. Case was discussed with the hospitalist. He will admit the patient to his service. Patient understood and was agreeable with plan. All questions were answered. Discharge Plan Triage Chief Complaint: Weakness ED Provider: Scar Hines Dx/Rx/DC Orders Clinical Impression: COVID-19, Generalized weakness, Urinary tract infection Prescriptions: No Action atorvastatin 40 mg tablet 40 mg PO QHS Eliquis 2.5 mg tablet 2.5 mg PO BID Qty: 180 3RF acetaminophen 325 mg Tablet 650 mg PO Q6H PRN PRN (Reason: Pain 1-10 Or Fever>100.7) Qty: 0 0RF menthol-zinc oxide [Calmoseptine] 0.44-20.6 % Ointment 1 applic topical TID Qty: 0 0RF Protocol: *Topical Application Instructions APPLICATION INSTRUCTIONS: Buttocks/Groin/Abd folds nystatin [Nyamyc] 100,000 unit/gram Powder 1 applic topical TID Qty: 0 0RF Protocol: *Topical Application Instructions APPLICATION INSTRUCTIONS: apply groin /under breasts torsemide 20 mg tablet 20 mg PO QODAY 30 Days Qty: 15 0RF spironolactone 25 mg tablet 12.5 mg PO DAILY 30 Days Qty: 15 0RF metoprolol succinate 25 mg tablet extended release 24 hr 25 mg PO DAILY Qty: 90 3RF dapagliflozin propanediol [Farxiga] 10 mg tablet 10 mg PO DAILY Qty: 90 3RF Primary Care Provider: Kodak Hernandez Referrals: Kodak Hernandez MD [Primary Care Provider] - Print Language: Irish Disposition Disposition: Acute Care Hospital [facility]
[2024-07-24 09:11] LABS: Absolute Lymphocyte Count 1.11 X10^3/uL (0.83-4.51); Absolute Neutrophil Count 4.4 X10^3/uL (2.0-7.7); Basophil# 0.02 X10^3/uL; Basophil% 0.3 % (0-1); Eosinophil# 0.03 X10^3/uL; Eosinophils% 0.4 % (0-5); Hematocrit 36.3 % (40-54); Hemoglobin 11.8 g/dL (13.0-16.5); Lymphocyte # 1.11 X10^3/ul (0.83-4.51); Lymphocyte % 16.4 % (19-41); Mean Corp Hgb Conc 32.5 g/dL (32-36); Mean Corpuscular Hgb 31.4 pg (27.0-32.0); Mean Corpuscular Volume 96.5 fL (80-94); Mean Platelet Vol. 10.8 fl (6.2-12.0); Monocyte# 1.06 X10^3/uL; Monocyte% 15.7 % (0-10); NRBC Flagged by Analyzer 0 % (0-5); Neutrophil # 4.38 X10^3/uL (2.7-7.7); Neutrophil % 64.8 % (47-70); Platelet Count 172 K/mm3 (150-450); RBC Distribution Width CV 15.5 % (11.6-14.6); RBC Distribution Width SD 55.5 fl (35.1-43.9); Red Blood Count 3.76 M/mm3 (4.6-6.2); White Blood Count 6.8 K/mm3 (4.4-11.0)
[2024-07-24 09:28] LABS: International Normalized Ratio 1.2; Prothrombin Time (Protime)PT. 15.7 SECONDS (11.7-14.9)
[2024-07-24 09:29] LABS: Partial Thromboplast Time 33.7 Seconds (24.1-36.2)
--- NOTE | 2024-07-24 09:30 | RAD_ITS ---
PROCEDURE: CHEST AP AND LATERAL REASON FOR EXAM: Dizziness. TECHNIQUE: Frontal and lateral views of the chest. COMPARISON: Comparison is made with prior study dated May 26, 2024 FINDINGS: EKG electrodes are seen. Heart size is moderately enlarged. Calcification of the aortic arch. Prominence of the central pulmonary arteries suggestive of possible pulmonary hypertension. The mediastinal contour is unremarkable. The lungs are clear. Degenerative changes are identified within the thoracic spine. RAD/Chest PA and Lateral IMPRESSION: Stable examination. [facility]
[2024-07-24 09:40] LABS: Anion Gap 10 (5-15); BUN 54 mg/dL (7-18); BUN/Creat Ratio 21.6 RATIO (10-20); Calcium,Total 8.7 mg/dL (8.5-10.1); Chloride 93 mmol/L (98-107); EST Glomerular Filtration Rate 26 mL/min (>60); Est Glom Filt Rate - Afr Amer 32 mL/min (>60); Estimated Creatinine Clearance 25.01 ml/min; Glucose 84 mg/dL (74-106); Potassium 4.8 mmol/L (3.5-5.1); Sodium Level 127 mmol/L (136-145); Troponin-I HS (w/2H Reflex) 18 pg/mL (3.0-78.0)
[2024-07-24] MEDS: 0.9% Normal Saline (1000mL) 1,000 ML 1000 ML IV (10:51)
[2024-07-24 11:01] LABS: Mucous, Urine 0 SEEN /hpf (<or=2+); Squamous Epithelial Cells - UA 0 SEEN /hpf (0-5)
[2024-07-24 11:02] LABS: Color, Urine Straw (Yellow); Glucose, Dipstick 100 mg/dl (Normal); Ketone-Dipstick Negative (Negative); Leukocyte Esterase-Dipstick 500 /ul (Negative); Nitrite-Dipstick Negative (Negative); Occult Blood-Urine 50 /ul (Negative); Protein-Dipstick 30 mg/dl (Negative); Specific Gravity, Urine 1.005 (1.002-1.030); Urine Bilirubin Dipstick Negative (Negative); Urine Clarity Sl. Cloudy (Clear); Urine Urobilinogen Normal (Normal)
[2024-07-24 11:03] LABS: Reflex Troponin-HS? (from REC) Y
[2024-07-24 11:14] LABS: White Blood Cells 10-25 SEEN /hpf (0-5)
[2024-07-24 11:15] LABS: Bacteria 2+ /hpf (None Seen); Red Blood Cells-Urine 0-5 SEEN /hpf (0-5); Renal Epithelial Cells 0-5 SEEN /hpf (0-5)
[2024-07-24] MEDS: Cefazolin 1 GM/50 ML BAG IV (11:59)
[2024-07-24 12:08] LABS: Troponin-I HS 20 pg/mL (3.0-78.0)
--- NOTE | 2024-07-24 13:03 | PCM.HP.STD ---
HPI - General General Date of Admission: 07/24/24 Date of Service: 07/24/24 Chief Complaint: Lightheadedness HPI Narrative MERARI JIN, is a 84 M who presents with lightheadedness. Patient has multiple comorbidities including chronic A-fib, chronic congestive heart failure with preserved ejection fraction who presented to the emergency department with complaint of lightheadedness. Patient reported experiencing progressive weakness over the past couple of weeks. She he states he finally had enough on the morning of his presentation hence the decision to present to the ED. Per patient he felt lightheaded as well as nausea without vomiting. Presented to the emergency department as a result. Patient was found to be orthostatic in the ED. Workup did reveal presence of COVID-19 infection as well as acute cystitis. Treatment initiated per protocol admitted to monitored bed for further management. [facility] Medical History Cataract (lens) fragments in eye following cataract surgery, left eye (HFpEF) heart failure with preserved ejection fraction Atherosclerosis of coronary artery of [place] heart without angina pectoris Nonrheumatic mitral (valve) insufficiency Venous stasis dermatitis of both lower extremities Hyperlipidemia Essential hypertension NASH on CPAP Prostate cancer Home Medications ?Medication ?Instructions ?Recorded ?Last Taken ?Type atorvastatin 40 mg tablet 40 mg PO QHS cholesterol 01/25/22 Unknown History acetaminophen 325 mg tablet 650 mg (2 x 325 mg) PO Q6H PRN PRN 03/05/23 Unknown Rx Pain 1-10 Or Fever>100.7 #0 tabs menthol 0.44 %-zinc oxide 20.6 % 1 applic topical TID #0 grams 03/05/23 Unknown Rx topical ointment (Calmoseptine) metoprolol succinate 25 mg 25 mg PO DAILY blood pressur #90 08/26/23 Unknown Rx tablet,extended release 24 hr tabs apixaban 2.5 mg tablet (Eliquis) 2.5 mg PO BID #180 tabs 09/27/23 Unknown Rx dapagliflozin propanediol 10 mg 10 mg PO DAILY #90 tabs 05/26/24 Unknown Rx tablet (Farxiga) nystatin 100,000 unit/gram topical 1 applic topical TID #0 grams 05/31/24 Unknown Rx powder (Nyamyc) spironolactone 25 mg tablet 12.5 mg (1/2 x 25 mg) PO DAILY 30 05/31/24 Unknown Rx days #15 tabs torsemide 20 mg tablet 20 mg PO QODAY 30 days #15 tabs 05/31/24 Unknown Rx Allergy/AdvReac Type Severity Reaction Status Date / Time No Known Allergies Allergy Verified 07/24/24 08:36 Family History Other Prostate cancer Surgical History History of coronary artery stent placement History of mitral valve repair (09/19/21) History of right and left heart catheterization (09/04/21) History of prostate surgery History of appendectomy History of cardioversion (12/12/21) Social History current occupational status: retired Smoking Status: Never smoker alcohol intake: never caffeine: Yes ROS ROS Narrative GENERAL: Chills HEENT: denies headache, sinus congestion, RESPIRATORY: d shortness of breath, dyspnea on exertion CARDIAC: denies chest pain, palpitations, orthopnea, PND GASTROINTESTINAL: denies abdominal pain, nausea, vomiting, melena, GENITOURINARY: denies dysuria, urgency, frequency, heamaturia EXTREMITY: denies swelling MUSCULOSKELETAL: denies current joint pain or tenderness NEUROLOGIC: denies focal numbness, weakness, tingling HEMATOLOGIC: denies easy bruising and/or hemorrhage INTEGUMENT: denies rashes PSYCHIATRIC: denies suicidal or homicidal ideation Vital Signs Vital Signs Vital Signs: 07/24/24 08:29 07/24/24 09:50 07/24/24 10:29 Temperature 97.9 F Temperature Source Oral Pulse Rate 86 79 Pulse Rate [Lying] Pulse Rate [Sitting (for 1 minute prior to obtaining)] Respiratory Rate 24 H 21 H Respiratory Effort Normal Non-Labored Respiratory Pattern Normal Blood Pressure 132/79 H 124/72 H Blood Pressure [Lying] Blood Pressure Mean 96 89 Blood Pressure Mean [Lying] Pulse Ox 97 97 Oxygen Delivery Method Room Air Room Air 07/24/24 10:36 07/24/24 12:00 Temperature Temperature Source Pulse Rate 73 Pulse Rate [Lying] 80 Pulse Rate [Sitting (for 1 minute prior to obtaining)] 137 H Respiratory Rate 14 Respiratory Effort Respiratory Pattern Blood Pressure 141/66 H Blood Pressure [Lying] 149/80 H Blood Pressure Mean 91 Blood Pressure Mean [Lying] 103 Pulse Ox 94 Oxygen Delivery Method Room Air Weight Weight: 98.4 kg Body Mass Index (BMI) 33.0 Physical Exam Narrative GENERAL: cooperative HEENT: Atraumatic; normocephalic EYES; Anicteric, Normal Conjunctiva NECK; supple, normal thyroid, RESPIRATORY: Diminished to auscultation CARDIOVASCULAR: Irregular S1-S2 GI: soft, normoactive bowel sounds, : No Renal angle tenderness; EXTREMITIES: No edema, no clubbing, MUSCULOSKELETAL: no muscle wasting NEURO: Awake; no lateralizing signs. SKIN: Chronic stasis dermatitis involving both lower extremities PSYCH; Flat affect Results Lab / Micro Data 07/24/24 08:42 07/24/24 08:42 Labs: Laboratory Results - last 24 hr 07/24/24 08:42: WBC 6.8, RBC 3.76 L, Hgb 11.8 L, Hct 36.3 L, MCV 96.5 H, MCH 31.4, MCHC 32.5, RDW Std Deviation 55.5 H, RDW Coeff of [place] 15.5 H, Plt Count 172, MPV 10.8, Immature Gran % (Auto) 2.400 H, Neut % (Auto) 64.8, Lymph % (Auto) 16.4 L, [place] % (Auto) 15.7 H, Eos % (Auto) 0.4, Baso % (Auto) 0.3, Absolute Neuts (auto) 4.4, Absolute Lymphs (auto) 1.11, Nucleated RBC % 0, PT 15.7 H, INR 1.2, APTT 33.7, Sodium 127 L, Potassium 4.8, Chloride 93 L, Carbon Dioxide 24.0, Anion Gap 10, BUN 54 H, Creatinine 2.50 H, Estim Creat Clear Calc 25.01, Est GFR (MDRD) Af Amer 32 L, Est GFR (MDRD) Non-Af 26 L, BUN/Creatinine Ratio 21.6 H, Glucose 84, Calcium 8.7, Troponin I High Sens 18 07/24/24 10:49: Urine Color Straw, Urine Clarity Sl. Cloudy, Urine pH 7.0, Ur Specific [place] 1.005, Urine Protein 30 H, Urine Glucose (UA) 100 H, Urine Ketones Negative, Urine Occult Blood 50 H, Urine Nitrite Negative, Urine Bilirubin Negative, Urine Urobilinogen Normal, Ur Leukocyte Esterase 500 H, Urine RBC 0-5 SEEN, Urine WBC 10-25 SEEN, Ur Squamous Epith Cells 0 SEEN, Ur Renal Epithelial Cell 0-5 SEEN, Urine Bacteria 2+, Urine Mucus 0 SEEN 07/24/24 11:42: Troponin I High Sens 20 Micro: Microbiology 07/24/24 09:18 Mucosa - Nose SARS-CoV-2, Influenza & RSV (PCR) - Final SARS-CoV-2 (COVID 19 PCR) Imaging Radiology Impression Brain CT 07/24/24 08:57 IMPRESSION: 1. Small vessel ischemic/degenerative changes. 2. Generalized brain atrophy. 3. No acute intracranial hemorrhage, midline shift or mass effect. If symptoms persist, further evaluation with MRI is recommended. Reading Location: [facility] Chest X-Ray 07/24/24 09:30 IMPRESSION: Stable examination. [facility] Assessment & Plan Assessment/Plan (1) Urinary tract infection: (2) COVID-19: PLAN: Plan Patient is an 84-year-old gentleman who presented with progressive generalized weakness 1. Acute kidney injury ? 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 Patient admitted to monitored bed started on IV fluid resuscitation with monitoring of electrolytes ordered. Did avoid potential nephrotoxic medications including spironolactone as well as furosemide 2. Acute COVID infection ? Patient currently on room air patient was therefore not started on Decadron nor remdesivir will continue with symptom management 3. Acute cystitis ? Patient started on ceftriaxone urine cultures. Will follow-up on results 4. Hyponatremia ? Secondary to hypovolemic hyponatremia. Patient resuscitated with IV fluids repeat sodium ordered in a.m. 5. Chronic congestive heart failure with preserved ejection fraction ? Currently compensated. Patient is on furosemide as well as spironolactone held given patient worsening kidney function 6. Chronic atrial fibrillation ? Rate controlled on systemic anticoagulation with apixaban continued 7. Valvular heart disease ? With history of mitral valve repair on 09/19/2021 8. Coronary artery disease ? With previous PCI 9. Hypertension ? Blood pressure controlled, home medications continued with dose adjustment as needed 10. Dyslipidemia ?Patient is on statin therapy, continued at home dose 11. Obstructive sleep apnea ? On CPAP 12. History of prostate CA ? Currently in remission 13. Physical deconditioning ? Requested for PT OT eval and social and political studies professor to assist with discharge planning 14. DVT prophylaxis ? Already on apixaban Time spent in the patient's overall evaluation,decision-making process, review of diagnostic data, adjustment of management, discussion with other providers, nursing nursing and ancillary staff involved in patient's care documentation, 75 Minutes Advance planning; did discuss with the patient and family regarding advanced directives as well as CODE STATUS. Did explain the various scenarios involved ( FULL CODE, DNR CCA, DNR CCA with no intubation, and DNR CC and what each meant) patient elected to be DNR CCA no intubation. Order was placed. Time spent on discussion 16 minutes. Charges/Coding Multi Select Codes Visit Charges Visit Charges: 18240 Init Hosp Hospitalists' Procedures Procedures: 64525 Advncd Care Plan 30 Min
--- NOTE | 2024-07-24 14:59 | ED.RN ---
Yanelis notified blood and some clots found in patients solomon. When Rn took over care patient did not have bright red urine. urine now pink tinged with small clots
[2024-07-24] MEDS: Ceftriaxone 1 GM/50 ML BAG IV (16:16)
[2024-07-24] MEDS: 0.9% Normal Saline (1000mL) 1,000 ML 100 ML IV (16:16)
[2024-07-24] MEDS: Metoprolol(XL)Succ 25 MG Tablet PO (16:16)
--- NOTE | 2024-07-24 19:10 | CM.ED ---
Care Management Face to Face with patient for initial transition planning/care coordination assessment in the ED.? This movie writer introduced self and role at [facility]. Patient alert and oriented. Patient willing to participate in assessment and is able to answer all questions appropriately.? Care providers, pharmacy, and demographics verified. Admitting Diagnosis: covid Other diagnosis history: hypertension, hyperlipidemia, prostate cancer PCP: David Specialists: [facility] Preferred Pharmacy: [facility] Insurance: Medicare?? Prescription Benefit:?yes Living Will/HPOA: Yes, asked to bring in when able LNOK: son Living Arrangements: patient lives in a 1 ? story home that he built ?handicap assessable?? Pays a live in menagerie caretaker that is with him 7 days a week.? States he has been mostly independent with his ADLs up until this week, caregiver cooks and cleans. Transportation: has been driving self DME: rollator, cane, ramp, lift in home, grab bars in bathroom, lift chairs HHC: had HH in the past, uncertain of name of agency SNF/Rehab: previous stay in [facility] Resources: ?None Behavioral Health History: None Patient goals: Patient wishes to discharge home. Disposition Plan: admission to acute; RN CM/SW to follow for discharge planning needs that may arise. Lillian Martinez, PET AMBASSADOR, MRI SPECIALIST
[2024-07-24] MEDS: APIXABAN 2.5 MG TABLET (WCH) PO (21:53)
[2024-07-24] MEDS: Atorvastatin Calcium 40 MG Tablet PO (21:53)
[2024-07-25] VITALS (7 sets, daily range): BP systolic 104–128; BP diastolic 41–69; PULSE 70–94; RESP 14–18; TEMP 36.3–37.4; O2SAT 94–99; BMI 37.0
[2024-07-25] MEDS: 0.9% Normal Saline (1000mL) 1,000 ML 100 ML IV ×2 (02:45→13:35)
[2024-07-25 08:47] LABS: Absolute Lymphocyte Count 1.09 X10^3/uL (0.83-4.51); Absolute Neutrophil Count 3.2 X10^3/uL (2.0-7.7); Basophil# 0.01 X10^3/uL; Basophil% 0.2 % (0-1); Eosinophil# 0.01 X10^3/uL; Eosinophils% 0.2 % (0-5); Hematocrit 33.7 % (40-54); Hemoglobin 11.3 g/dL (13.0-16.5); Lymphocyte # 1.09 X10^3/ul (0.83-4.51); Lymphocyte % 20.2 % (19-41); Mean Corp Hgb Conc 33.5 g/dL (32-36); Mean Corpuscular Hgb 31.6 pg (27.0-32.0); Mean Corpuscular Volume 94.1 fL (80-94); Mean Platelet Vol. 10.1 fl (6.2-12.0); Monocyte# 1.05 X10^3/uL; Monocyte% 19.5 % (0-10); NRBC Flagged by Analyzer 0 % (0-5); Neutrophil # 3.16 X10^3/uL (2.7-7.7); Neutrophil % 58.6 % (47-70); Platelet Count 153 K/mm3 (150-450); RBC Distribution Width CV 15.4 % (11.6-14.6); Red Blood Count 3.58 M/mm3 (4.6-6.2); White Blood Count 5.4 K/mm3 (4.4-11.0)
[2024-07-25] MEDS: Metoprolol(XL)Succ 25 MG Tablet PO (10:08)
[2024-07-25] MEDS: Menthol/Lanolin/Calamine/Znox 113 GM Tube 1 APPLIC TOPICAL ×2 (10:09→21:55)
[2024-07-25] MEDS: APIXABAN 2.5 MG TABLET (WCH) PO ×2 (10:09→21:55)
[2024-07-25] MEDS: Nystatin Powder 15gm Bottle 1 APPLIC TOPICAL ×2 (10:09→21:55)
[2024-07-25] MEDS: Ceftriaxone 1 GM/50 ML BAG IV (10:10)
--- NOTE | 2024-07-25 10:14 | PCM.PN.HOSP ---
Reason for Visit Reason for Visit: Diagnoses Urinary tract infection, site not specified (07/24/24) COVID-19 (07/24/24) Subjective Subjective Patient did develop hematuria the day prior. Subsequently started on continuous bladder irrigation. Urine cultures positive GPC Poss Enterococcus sp. Sensitivities pending Objective Data Objective Data Vital Signs: Vital Signs Temp Pulse Resp BP Pulse Ox O2 Del Method 98.2 F 87 14 104/58 L 94 Room Air 07/25/24 09:37 07/25/24 10:08 07/25/24 09:37 07/25/24 09:37 07/25/24 09:37 07/25/24 09:37 Oxygen Delivery Method Room Air Weight: 110.4 kg Body Mass Index (BMI) 37.0 Intake & Output: Intake and Output for Last 24 Hours 07/23/24 07/24/24 07/25/24 23:59 23:59 23:59 Intake Total 1340 / 1640 1400 / 1400 Output Total 600 / 1200 600 / 600 Balance 740 / 440 800 / 800 Lab / Micro Data 07/25/24 08:37 07/24/24 08:42 Labs: Laboratory Results - last 24 hr 07/24/24 10:49: Urine Color Straw, Urine Clarity Sl. Cloudy, Urine pH 7.0, Ur Specific [place] 1.005, Urine Protein 30 H, Urine Glucose (UA) 100 H, Urine Ketones Negative, Urine Occult Blood 50 H, Urine Nitrite Negative, Urine Bilirubin Negative, Urine Urobilinogen Normal, Ur Leukocyte Esterase 500 H, Urine RBC 0-5 SEEN, Urine WBC 10-25 SEEN, Ur Squamous Epith Cells 0 SEEN, Ur Renal Epithelial Cell 0-5 SEEN, Urine Bacteria 2+, Urine Mucus 0 SEEN 07/24/24 11:42: Troponin I High Sens 20 07/25/24 06:10: WBC Cancelled, Corrected WBC Cancelled, RBC Cancelled, Hgb Cancelled, Hct Cancelled, MCV Cancelled, MCH Cancelled, MCHC Cancelled, RDW Std Deviation Cancelled, RDW Coeff of Olvin Cancelled, Plt Count Cancelled, MPV Cancelled, Immature Gran % (Auto) Cancelled, Neut % (Auto) Cancelled, Lymph % (Auto) Cancelled, [place] % (Auto) Cancelled, Eos % (Auto) Cancelled, Baso % (Auto) Cancelled, Absolute Neuts (auto) Cancelled, Absolute Lymphs (auto) Cancelled, Total Counted Cancelled, Neutrophils % (Manual) Cancelled, Band Neutrophils % Cancelled, Lymphocytes % (Manual) Cancelled, Monocytes % (Manual) Cancelled, Eosinophils % (Manual) Cancelled, Basophils % (Manual) Cancelled, Metamyelocytes % Cancelled, Myelocytes % Cancelled, Promyelocytes % Cancelled, Blast Cells % Cancelled, Plasma Cell % (Manual) Cancelled, Other Cells % Cancelled, Nucleated RBC % Cancelled, Nucleated RBCs/100 WBC Cancelled, Differential Comment Cancelled, Diff Path Review Cancelled, Hypersegmented Neuts Cancelled, Atypical Lymphocytes Cancelled, Reactive Lymphocytes Cancelled, Smudge Cells Cancelled, Toxic Granulation Cancelled, Toxic Vacuolation Cancelled, Dohle Bodies Cancelled, Adriana Rods Cancelled, Platelet Estimate Cancelled, Plt Morphology Comment Cancelled, RBC Morphology Cancelled 07/25/24 06:10: RBC Morphology Cancelled, Polychromasia Cancelled, Hypochromasia Cancelled, Basophilic Stippling Cancelled, Anisocytosis Cancelled, Microcytosis Cancelled, Macrocytosis Cancelled, Spherocytes Cancelled, Sickle Cells Cancelled, Target Cells Cancelled, Tear Drop Cells Cancelled, Ovalocytes Cancelled, Stomatocytes Cancelled, [place] Bodies Cancelled, Trina Cells Cancelled, Bite Cells Cancelled, Crenated Cell Cancelled, Acanthocytes (Spur) Cancelled, Rouleaux Cancelled, Schistocytes Cancelled 07/25/24 08:37: WBC 5.4, RBC 3.58 L, Hgb 11.3 L, Hct 33.7 L, MCV 94.1 H, MCH 31.6, MCHC 33.5, RDW Std Deviation 53.0 H, RDW Coeff of Olvin 15.4 H, Plt Count 153, MPV 10.1, Immature Gran % (Auto) 1.300 H, Neut % (Auto) 58.6, Lymph % (Auto) 20.2, [place] % (Auto) 19.5 H, Eos % (Auto) 0.2, Baso % (Auto) 0.2, Absolute Neuts (auto) 3.2, Absolute Lymphs (auto) 1.09, Nucleated RBC % 0 Micro: Microbiology 07/24/24 10:49 Urine Catheter - [place] Urine Culture - Preliminary GPC Poss Enterococcus sp 07/24/24 16:21 Mucosa - Nose Respiratory Panel (PCR) - Final 07/24/24 09:18 Mucosa - Nose SARS-CoV-2, Influenza & RSV (PCR) - Final SARS-CoV-2 (COVID 19 PCR) Radiography Diagnostic Testing: Radiology Impression Chest X-Ray 07/24/24 09:30 IMPRESSION: Stable examination. Reading Location: [facility] Physical Exam Narrative GENERAL: cooperative HEENT: Atraumatic; normocephalic EYES; Anicteric, Normal Conjunctiva NECK; supple, normal thyroid, RESPIRATORY: Diminished to auscultation CARDIOVASCULAR: Irregular S1-S2 GI: soft, normoactive bowel sounds, : No Renal angle tenderness; [place] catheter in place with CBI EXTREMITIES: No edema, no clubbing, MUSCULOSKELETAL: no muscle wasting NEURO: Awake; no lateralizing signs. SKIN: Chronic stasis dermatitis involving both lower extremities PSYCH; Flat affect Assessment & Plan Assessment/Plan (1) Urinary tract infection: (2) COVID-19: PLAN: Plan Patient is an 84-year-old gentleman who presented with progressive generalized weakness 1. Acute kidney injury ? 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 Patient admitted to monitored bed started on IV fluid resuscitation with monitoring of electrolytes ordered. Did avoid potential nephrotoxic medications including spironolactone as well as furosemide 2. Acute COVID infection ? Patient currently on room air patient was therefore not started on Decadron nor remdesivir will continue with symptom management 3. Acute cystitis ? Patient started on ceftriaxone urine cultures. Will follow-up on results ? 07/25/2024; urine cultures positive GPC Poss Enterococcus sp. Sensitivities pending 4. Hematuria ? Secondary to acute cystitis exacerbated by the use of systemic anticoagulation with apixaban. Apixaban held patient managed with continuous bladder irrigation 5. Hyponatremia ? Secondary to hypovolemic hyponatremia. Patient resuscitated with IV fluids repeat sodium ordered in a.m. 6. Chronic congestive heart failure with preserved ejection fraction ? Currently compensated. Patient is on furosemide as well as spironolactone held given patient worsening kidney function 7. Chronic atrial fibrillation ? Rate controlled on systemic anticoagulation with apixaban continued ? 07/25/2024; held apixaban given patient hematuria 8. Valvular heart disease ? With history of mitral valve repair on 09/19/2021 9. Coronary artery disease ? With previous PCI 10. Hypertension ? Blood pressure controlled, home medications continued with dose adjustment as needed 11. Dyslipidemia ?Patient is on statin therapy, continued at home dose 12. Obstructive sleep apnea ? On CPAP 13. 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 Physical deconditioning ? Requested for PT OT eval and social services specialist to assist with discharge planning 1. DVT prophylaxis ? on apixaban? apixaban was held after patient developed hematuria Time spent in the patient's overall evaluation,decision-making process, review of diagnostic data, adjustment of management, discussion with other providers, nursing nursing and ancillary staff involved in patient's care documentation, 50 Minutes Charges/Coding Visit Charges Inpatient E&M: 86721 [facility] Hosp L3
[2024-07-25] MEDS: Ampicillin/Sulbactam 3 GM in 0.9% Normal Saline (100mL MB+) 100 ML IV ×2 (13:30→21:55)
--- NOTE | 2024-07-25 16:23 | CASEMGMT ---
Social Work- SW met with pt to discuss discharge preferences. A list of SNF providers including quality and resource use data and consistent with the patient?s preferred geographic region, medical needs, and insurance network were provided from the [facility] Guide. SW to follow up with pt Saturday for selections. BERENICE Whaley
[2024-07-25] MEDS: Atorvastatin Calcium 40 MG Tablet PO (21:55)
[2024-07-25 23:26] LABS: Anion Gap 9 (5-15); BUN 49 mg/dL (7-18); BUN/Creat Ratio 23.4 RATIO (10-20); Calcium,Total 7.4 mg/dL (8.5-10.1); Chloride 102 mmol/L (98-107); Creatinine, Serum 2.09 mg/dL (0.70-1.30); EST Glomerular Filtration Rate 32 mL/min (>60); Est Glom Filt Rate - Afr Amer 39 mL/min (>60); Estimated Creatinine Clearance 31.71 ml/min; Glucose 99 mg/dL (74-106); Magnesium 1.7 mg/dL (1.6-2.6); Phosphorus 4.2 mg/dL (2.5-4.9); Potassium 4.3 mmol/L (3.5-5.1); Sodium Level 132 mmol/L (136-145)
[2024-07-26] VITALS (7 sets, daily range): BP systolic 103–143; BP diastolic 45–82; PULSE 58–82; RESP 16–18; TEMP 36.2–36.8; O2SAT 94–98; BMI 37.0
[2024-07-26] MEDS: 0.9% Normal Saline (1000mL) 1,000 ML 100 ML IV (00:34)
[2024-07-26 05:08] LABS: Absolute Lymphocyte Count 1.33 X10^3/uL (0.83-4.51); Absolute Neutrophil Count 1.8 X10^3/uL (2.0-7.7); Basophil# 0.01 X10^3/uL; Basophil% 0.2 % (0-1); Eosinophil# 0.07 X10^3/uL; Eosinophils% 1.7 % (0-5); Hematocrit 31.8 % (40-54); Hemoglobin 10.3 g/dL (13.0-16.5); Lymphocyte # 1.33 X10^3/ul (0.83-4.51); Lymphocyte % 32.6 % (19-41); Mean Corp Hgb Conc 32.4 g/dL (32-36); Mean Corpuscular Hgb 31.1 pg (27.0-32.0); Mean Corpuscular Volume 96.1 fL (80-94); Mean Platelet Vol. 10.9 fl (6.2-12.0); Monocyte# 0.86 X10^3/uL; Monocyte% 21.1 % (0-10); NRBC Flagged by Analyzer 0 % (0-5); Neutrophil # 1.75 X10^3/uL (2.7-7.7); Neutrophil % 42.9 % (47-70); Platelet Count 148 K/mm3 (150-450); RBC Distribution Width CV 15.4 % (11.6-14.6); Red Blood Count 3.31 M/mm3 (4.6-6.2); White Blood Count 4.1 K/mm3 (4.4-11.0)
[2024-07-26 05:20] LABS: Anion Gap 6 (5-15); BUN 48 mg/dL (7-18); BUN/Creat Ratio 23.9 RATIO (10-20); Calcium,Total 7.7 mg/dL (8.5-10.1); Chloride 104 mmol/L (98-107); Creatinine, Serum 2.01 mg/dL (0.70-1.30); EST Glomerular Filtration Rate 34 mL/min (>60); Est Glom Filt Rate - Afr Amer 41 mL/min (>60); Estimated Creatinine Clearance 32.97 ml/min; Glucose 84 mg/dL (74-106); Potassium 4.2 mmol/L (3.5-5.1); Sodium Level 132 mmol/L (136-145)
--- NOTE | 2024-07-26 07:40 | PN.HOSP_ITS ---
Reason for Visit Reason for Visit: Diagnoses Urinary tract infection, site not specified (07/24/24) COVID-19 (07/24/24) Subjective Subjective Patient urine cultures came back positive for Enterococcus. Patient had been switched from ceftriaxone to Unasyn the day prior. Patient hematuria appears to have cleared. Plan is to stop CBI and monitor for an additional day Objective Data Objective Data Vital Signs: Vital Signs Temp Pulse Resp BP Pulse Ox O2 Del Method 97.8 F 63 18 103/55 L 96 Room Air 07/26/24 04:00 07/26/24 04:00 07/26/24 04:00 07/26/24 04:00 07/26/24 04:00 07/26/24 04:00 Oxygen Delivery Method Room Air Weight: 110.4 kg Body Mass Index (BMI) 37.0 Intake & Output: Intake and Output for Last 24 Hours 07/24/24 07/25/24 07/26/24 23:59 23:59 23:59 Intake Total 1340 / 1640 4404 / 4404 Output Total 600 / 1200 1250 / 1250 Balance 740 / 440 3154 / 3154 Lab / Micro Data 07/26/24 03:29 07/26/24 03:29 Labs: Laboratory Results - last 24 hr 07/25/24 06:10: WBC Cancelled, Corrected WBC Cancelled, RBC Cancelled, Hgb Cancelled, Hct Cancelled, MCV Cancelled, MCH Cancelled, MCHC Cancelled, RDW Std Deviation Cancelled, RDW Coeff of Olvin Cancelled, Plt Count Cancelled, MPV Cancelled, Immature Gran % (Auto) Cancelled, Neut % (Auto) Cancelled, Lymph % (Auto) Cancelled, [place] % (Auto) Cancelled, Eos % (Auto) Cancelled, Baso % (Auto) Cancelled, Absolute Neuts (auto) Cancelled, Absolute Lymphs (auto) Cancelled, Total Counted Cancelled, Neutrophils % (Manual) Cancelled, Band Neutrophils % Cancelled, Lymphocytes % (Manual) Cancelled, Monocytes % (Manual) Cancelled, Eosinophils % (Manual) Cancelled, Basophils % (Manual) Cancelled, Metamyelocytes % Cancelled, Myelocytes % Cancelled, Promyelocytes % Cancelled, Blast Cells % Cancelled, Plasma Cell % (Manual) Cancelled, Other Cells % Cancelled, Nucleated RBC % Cancelled, Nucleated RBCs/100 WBC Cancelled, Differential Comment Cancelled, Diff Path Review Cancelled, Hypersegmented Neuts Cancelled, Atypical Lymphocytes Cancelled, Reactive Lymphocytes Cancelled, Smudge Cells Cancelled, Toxic Granulation Cancelled, Toxic Vacuolation Cancelled, Dohle Bodies Cancelled, Adriana Rods Cancelled, Platelet Estimate Cancelled, Plt Morphology Comment Cancelled, RBC Morphology Cancelled 07/25/24 06:10: RBC Morphology Cancelled, Polychromasia Cancelled, Hypochromasia Cancelled, Basophilic Stippling Cancelled, Anisocytosis Cancelled, Microcytosis Cancelled, Macrocytosis Cancelled, Spherocytes Cancelled, Sickle Cells Cancelled, Target Cells Cancelled, Tear Drop Cells Cancelled, Ovalocytes Cancelled, Stomatocytes Cancelled, [place] Bodies Cancelled, Trina Cells Cancelled, Bite Cells Cancelled, Crenated Cell Cancelled, Acanthocytes (Spur) Cancelled, Rouleaux Cancelled, Schistocytes Cancelled 07/25/24 08:37: WBC 5.4, RBC 3.58 L, Hgb 11.3 L, Hct 33.7 L, MCV 94.1 H, MCH 31.6, MCHC 33.5, RDW Std Deviation 53.0 H, RDW Coeff of Olvin 15.4 H, Plt Count 153, MPV 10.1, Immature Gran % (Auto) 1.300 H, Neut % (Auto) 58.6, Lymph % (Auto) 20.2, [place] % (Auto) 19.5 H, Eos % (Auto) 0.2, Baso % (Auto) 0.2, Absolute Neuts (auto) 3.2, Absolute Lymphs (auto) 1.09, Nucleated RBC % 0 07/25/24 22:59: Sodium 132 L, Potassium 4.3, Chloride 102, Carbon Dioxide 21.0, Anion Gap 9, BUN 49 H, Creatinine 2.09 H, Estim Creat Clear Calc 31.71, Est GFR (MDRD) Af Amer 39 L, Est GFR (MDRD) Non-Af 32 L, BUN/Creatinine Ratio 23.4 H, Glucose 99, Calcium 7.4 L, Phosphorus 4.2, Magnesium 1.7 07/26/24 03:29: WBC 4.1 L, RBC 3.31 L, Hgb 10.3 L, Hct 31.8 L, MCV 96.1 H, MCH 31.1, MCHC 32.4, RDW Std Deviation 55.0 H, RDW Coeff of Olvin 15.4 H, Plt Count 148 L, MPV 10.9, Immature Gran % (Auto) 1.500 H, Neut % (Auto) 42.9 L, Lymph % (Auto) 32.6, [place] % (Auto) 21.1 H, Eos % (Auto) 1.7, Baso % (Auto) 0.2, Absolute Neuts (auto) 1.8 L, Absolute Lymphs (auto) 1.33, Nucleated RBC % 0, Sodium 132 L , Potassium 4.2, Chloride 104, Carbon Dioxide 22.0, Anion Gap 6, BUN 48 H, C reatinine 2.01 H, Estim Creat Clear Calc 32.97, Est GFR (MDRD) Af Amer 41 L, Est GFR (MDRD) Non-Af 34 L, BUN/Creatinine Ratio 23.9 H, Glucose 84, Calcium 7.7 L Micro: Microbiology 07/24/24 10:49 Urine Catheter - [place] Urine Culture - Final Enterococcus faecalis 07/24/24 16:21 Mucosa - Nose Respiratory Panel (PCR) - Final 07/24/24 09:18 Mucosa - Nose SARS-CoV-2, Influenza & RSV (PCR) - Final SARS-CoV-2 (COVID 19 PCR) Physical Exam Narrative GENERAL: cooperative HEENT: Atraumatic; normocephalic EYES; Anicteric, Normal Conjunctiva NECK; supple, normal thyroid, RESPIRATORY: Diminished to auscultation CARDIOVASCULAR: Irregular S1-S2 GI: soft, normoactive bowel sounds, : No Renal angle tenderness; [place] catheter in place with CBI EXTREMITIES: No edema, no clubbing, MUSCULOSKELETAL: no muscle wasting NEURO: Awake; no lateralizing signs. SKIN: Chronic stasis dermatitis involving both lower extremities PSYCH; Flat affect Assessment & Plan Assessment/Plan (1) Urinary tract infection: (2) COVID-19: PLAN: Plan Patient is an 84-year-old gentleman who presented with progressive generalized weakness 1. Acute kidney injury ? 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 Patient admitted to monitored bed started on IV fluid resuscitation with monitoring of electrolytes ordered. Did avoid potential nephrotoxic medications including spironolactone as well as furosemide ? 07/26/2024 patient creatinine down to 2.0 from an admitting level of 2.5 2. Acute COVID infection ? Patient currently on room air patient was therefore not started on Decadron nor remdesivir will continue with symptom management 3. Acute cystitis with Enterococcus ? Patient started on ceftriaxone urine cultures. Will follow-up on results ? 07/25/2024; urine cultures positive GPC Poss Enterococcus sp. Sensitivities pending -07/26/2024;Patient urine cultures came back positive for Enterococcus. Patient had been switched from ceftriaxone to Unasyn the day prior 4. Hematuria ? Secondary to acute cystitis exacerbated by the use of systemic anticoagulation with apixaban. Apixaban held patient managed with continuous bladder irrigation ? 07/26/2024; patient hematuria appears to have subsided plan is to discontinue CBI and monitor for an additional day 5. Hyponatremia ? Secondary to hypovolemic hyponatremia. Patient resuscitated with IV fluids repeat sodium ordered in a.m. ? 07/26/2024; sodium levels 132 6. Chronic congestive heart failure with preserved ejection fraction ? Currently compensated. Patient is on furosemide as well as spironolactone held given patient worsening kidney function 7. Chronic atrial fibrillation ? Rate controlled on systemic anticoagulation with apixaban continued ? 07/25/2024; held apixaban given patient hematuria 8. Valvular heart disease ? With history of mitral valve repair on 09/19/2021 9. Coronary artery disease ? With previous PCI 10. Hypertension ? Blood pressure controlled, home medications continued with dose adjustment as needed 11. Dyslipidemia ?Patient is on statin therapy, continued at home dose 12. Obstructive sleep apnea ? On CPAP 13. 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 Physical deconditioning ? Requested for PT OT eval and social media marketing analyst to assist with discharge planning ? 07/26/2024; did discuss possibility of patient going to long-term facility his preference will be to go home with home health 15 anemia ? Secondary to chronic disorder as well as acute blood loss anemia from hematuria, monitoring H&H and transfuse if patient becomes symptomatic or hemoglobin falls below 7 16. DVT prophylaxis ? on apixaban? 07/25/2024 apixaban was held after patient developed hematuria Charges/Coding Visit Charges Inpatient E&M: 94530 Subs Hosp L3
[2024-07-26] MEDS: Metoprolol(XL)Succ 25 MG Tablet PO (09:32)
[2024-07-26] MEDS: Ampicillin/Sulbactam 3 GM in 0.9% Normal Saline (100mL MB+) 100 ML IV ×2 (09:32→20:31)
[2024-07-26] MEDS: Menthol/Lanolin/Calamine/Znox 113 GM Tube 1 APPLIC TOPICAL ×2 (09:36→20:30)
[2024-07-26] MEDS: Nystatin Powder 15gm Bottle 1 APPLIC TOPICAL ×2 (09:36→20:30)
[2024-07-26] MEDS: 0.9% Saline Lock 10 ML Syringe IV (20:30)
[2024-07-26] MEDS: Atorvastatin Calcium 40 MG Tablet PO (20:31)
[2024-07-27 03:00] VITALS: BP 121/57; PULSE 64; RESP 16; TEMP 36; TEMP 36.6; O2SAT 98
[2024-07-27 06:36] LABS: Absolute Lymphocyte Count 1.12 X10^3/uL (0.83-4.51); Absolute Neutrophil Count 2.5 X10^3/uL (2.0-7.7); Basophil# 0.01 X10^3/uL; Basophil% 0.2 % (0-1); Eosinophil# 0.25 X10^3/uL; Eosinophils% 5.5 % (0-5); Hematocrit 32.5 % (40-54); Hemoglobin 10.6 g/dL (13.0-16.5); Lymphocyte # 1.12 X10^3/ul (0.83-4.51); Lymphocyte % 24.6 % (19-41); Mean Corp Hgb Conc 32.6 g/dL (32-36); Mean Corpuscular Hgb 31.4 pg (27.0-32.0); Mean Corpuscular Volume 96.2 fL (80-94); Mean Platelet Vol. 10.8 fl (6.2-12.0); Monocyte# 0.64 X10^3/uL; Monocyte% 14.1 % (0-10); NRBC Flagged by Analyzer 0 % (0-5); Neutrophil # 2.47 X10^3/uL (2.7-7.7); Neutrophil % 54.3 % (47-70); Platelet Count 147 K/mm3 (150-450); RBC Distribution Width CV 15.5 % (11.6-14.6); RBC Distribution Width SD 55.4 fl (35.1-43.9); Red Blood Count 3.38 M/mm3 (4.6-6.2); White Blood Count 4.6 K/mm3 (4.4-11.0)
[2024-07-27 06:57] LABS: Anion Gap 7 (5-15); BUN 48 mg/dL (7-18); BUN/Creat Ratio 26.7 RATIO (10-20); Calcium,Total 7.7 mg/dL (8.5-10.1); Chloride 106 mmol/L (98-107); EST Glomerular Filtration Rate 38 mL/min (>60); Est Glom Filt Rate - Afr Amer 46 mL/min (>60); Estimated Creatinine Clearance 36.81 ml/min; Glucose 118 mg/dL (74-106); Potassium 4.2 mmol/L (3.5-5.1); Sodium Level 134 mmol/L (136-145)
--- NOTE | 2024-07-27 09:37 | PCM.PN.HOSP ---
Reason for Visit Reason for Visit: Diagnoses Urinary tract infection, site not specified (07/24/24) COVID-19 (07/24/24) Subjective Subjective Patient now agreeable to go to a SNF. Objective Data Objective Data Vital Signs: Vital Signs Temp Pulse Resp BP Pulse Ox O2 Del Method 36.0 C L 64 16 121/57 H 98 Room Air 07/27/24 03:00 07/27/24 03:00 07/27/24 03:00 07/27/24 03:00 07/27/24 03:00 07/27/24 03:00 Oxygen Delivery Method Room Air Weight: 110.4 kg Body Mass Index (BMI) 37.0 Intake & Output: Intake and Output for Last 24 Hours 07/25/24 07/26/24 07/27/24 23:59 23:59 23:59 Intake Total 4404 / 4404 2474 / 2574 100 / 100 Output Total 1250 / 1250 850 / 1450 1200 / 1200 Balance 3154 / 3154 1624 / 1124 -1100 / -1100 Lab / Micro Data 07/27/24 05:55 07/27/24 05:55 Labs: Laboratory Results - last 24 hr 07/27/24 05:55: WBC 4.6, RBC 3.38 L, Hgb 10.6 L, Hct 32.5 L, MCV 96.2 H, MCH 31.4, MCHC 32.6, RDW Std Deviation 55.4 H, RDW Coeff of Olvin 15.5 H, Plt Count 147 L, MPV 10.8, Immature Gran % (Auto) 1.300 H, Neut % (Auto) 54.3, Lymph % (Auto) 24.6, [place] % (Auto) 14.1 H, Eos % (Auto) 5.5 H, Baso % (Auto) 0.2, Absolute Neuts (auto) 2.5, Absolute Lymphs (auto) 1.12, Nucleated RBC % 0, Sodium 134 L, Potassium 4.2, Chloride 106, Carbon Dioxide 21.0, Anion Gap 7, BUN 48 H, Creatinine 1.80 H, Estim Creat Clear Calc 36.81, Est GFR (MDRD) Af Amer 46 L, Est GFR (MDRD) Non-Af 38 L, BUN/Creatinine Ratio 26.7 H, Glucose 118 H, Calcium 7.7 L Micro: Microbiology 07/24/24 10:49 Urine Catheter - [place] Urine Culture - Final Enterococcus faecalis 07/24/24 16:21 Mucosa - Nose Respiratory Panel (PCR) - Final 07/24/24 09:18 Mucosa - Nose SARS-CoV-2, Influenza & RSV (PCR) - Final SARS-CoV-2 (COVID 19 PCR) Physical Exam Const alert and no apparent distress HEENT head/scalp atraumatic and moist oral mucous membranes Cardio regular rate, regular rhythm and S1 normal heart sound GI normal to inspection, nondistended, normoactive bowel sounds, soft to palpation, non-tender and non-distended Extremity normal to inspection Neuro Sensorium / Orientation: awake and alert Assessment & Plan Assessment/Plan (1) Urinary tract infection: (2) COVID-19: PLAN: Plan TIMBO: Superimposed on chronic kidney disease stage III. Patient admitted to monitored bed started on IV fluid resuscitation with monitoring of electrolytes ordered. Did avoid potential nephrotoxic medications including spironolactone as well as furosemide Acute COVID infection Patient currently on room air patient was therefore not started on Decadron nor remdesivir will continue with symptom management UTI enterococcus on amp/SB Hematuria Secondary to acute cystitis exacerbated by the use of systemic anticoagulation with apixaban. Apixaban held patient managed with continuous bladder irrigation, since discontinued. Chronic conditions: Chronic congestive heart failure with preserved ejection fraction? Currently compensated. Patient is on furosemide as well as spironolactone held given patient worsening kidney function Chronic atrial fibrillation?apixaban held Physical deconditioning Requested for PT OT eval and community mental health social worker to assist with discharge planning Now planning on SNF. Charges/Coding Visit Charges Inpatient E&M: 93783 Subs Hosp L2
[2024-07-27 09:50] VITALS: BP 133/60; PULSE 74; RESP 18; TEMP 36.3; O2SAT 98
[2024-07-27] MEDS: Ampicillin/Sulbactam 3 GM in 0.9% Normal Saline (100mL MB+) 100 ML IV ×3 (10:03→23:14)
[2024-07-27 10:04] VITALS: PULSE 66
[2024-07-27] MEDS: Menthol/Lanolin/Calamine/Znox 113 GM Tube 1 APPLIC TOPICAL ×2 (10:04→23:10)
[2024-07-27] MEDS: 0.9% Saline Lock 10 ML Syringe IV ×2 (10:04→23:14)
[2024-07-27] MEDS: Nystatin Powder 15gm Bottle 1 APPLIC TOPICAL ×2 (10:04→23:10)
[2024-07-27] MEDS: Metoprolol(XL)Succ 25 MG Tablet PO (10:04)
[2024-07-27 10:36] VITALS: O2SAT 95
--- NOTE | 2024-07-27 11:03 | CASEMGMT ---
Patient went to patient's room to check and see if he had a chance to choose any facilities from the list. JACKIE introduced self and role at [facility]. Wound RN was present. SW asked patient about his choices. Patient said he would rather go home and have his caregivers come into his home. SW explained the physician and therapy are recommending he go somewhere short term for rehab. Patient told SW, They aren't always right. Patient also said, Why would I go anywhere else when you have a place here. SW asked patient if he was referring to the hospital's TCU. Patient confirmed that is where he was talking about. SW reiterated to patient, he would rather go home at discharge, but if he has to he would prefer TCU. Karli BRAVO
--- NOTE | 2024-07-27 14:56 | CASEMGMT ---
APPLE ARCINIEGA in to discuss progress with therapy and recommendations for SNF at discharge with patient. Patient states he would like TCU, SW update and TCU is full. Patient requested this RN DEMIAN call his Caregiver Michelle to discuss SNF options, . APPLE ARCINIEGA called Michelle and she would recommend [facility] or [facility]. APPLE ARCINIEGA updated patient and he would prefer [facility]. Patient gave permission for referral to be sent to [facility]. APPLE ARCINIEGA updated hospitalist and SW. APPLE ARCINIEGA requested discharge production planning supervisor to send referral to [facility]. CM will continue to follow this patient and plan for a safe discharge.
[2024-07-27 15:50] VITALS: BP 123/63; PULSE 64; RESP 16; TEMP 36.3; O2SAT 100
[2024-07-27] MEDS: SimETHICONE 80 MG Chewable Tablet PO (19:47)
[2024-07-27 23:05] VITALS: BP 125/68; PULSE 84; RESP 18; TEMP 36.5; O2SAT 99
[2024-07-27] MEDS: Atorvastatin Calcium 40 MG Tablet PO (23:09)
[2024-07-28 03:45] VITALS: BP 131/59; PULSE 71; RESP 16; TEMP 36.6; O2SAT 98
[2024-07-28 04:11] LABS: Absolute Lymphocyte Count 1.15 X10^3/uL (0.83-4.51); Absolute Neutrophil Count 2.3 X10^3/uL (2.0-7.7); Basophil# 0.01 X10^3/uL; Basophil% 0.2 % (0-1); Eosinophil# 0.26 X10^3/uL; Eosinophils% 5.9 % (0-5); Hematocrit 31.7 % (40-54); Hemoglobin 10.2 g/dL (13.0-16.5); Lymphocyte # 1.15 X10^3/ul (0.83-4.51); Lymphocyte % 26.2 % (19-41); Mean Corp Hgb Conc 32.2 g/dL (32-36); Mean Corpuscular Hgb 31.1 pg (27.0-32.0); Mean Corpuscular Volume 96.6 fL (80-94); Mean Platelet Vol. 10.9 fl (6.2-12.0); Monocyte# 0.58 X10^3/uL; Monocyte% 13.2 % (0-10); NRBC Flagged by Analyzer 0 % (0-5); Neutrophil # 2.34 X10^3/uL (2.7-7.7); Neutrophil % 53.4 % (47-70); Platelet Count 155 K/mm3 (150-450); RBC Distribution Width CV 15.4 % (11.6-14.6); RBC Distribution Width SD 54.8 fl (35.1-43.9); Red Blood Count 3.28 M/mm3 (4.6-6.2); White Blood Count 4.4 K/mm3 (4.4-11.0)
[2024-07-28 04:13] VITALS: BMI 38.0
[2024-07-28 04:46] LABS: Anion Gap 5 (5-15); BUN 42 mg/dL (7-18); Calcium,Total 7.8 mg/dL (8.5-10.1); Chloride 109 mmol/L (98-107); Creatinine, Serum 1.75 mg/dL (0.70-1.30); EST Glomerular Filtration Rate 40 mL/min (>60); Est Glom Filt Rate - Afr Amer 48 mL/min (>60); Estimated Creatinine Clearance 38.44 ml/min; Glucose 96 mg/dL (74-106); Potassium 4.4 mmol/L (3.5-5.1); Sodium Level 136 mmol/L (136-145)
[2024-07-28] MEDS: Ampicillin/Sulbactam 3 GM in 0.9% Normal Saline (100mL MB+) 100 ML IV (05:40)
--- NOTE | 2024-07-28 09:33 | CASEMGMT ---
[facility] can take patient. Patient's caregiver can take patient as long as he can go by 1130. Patient also only has 9 days left until he is in his co-pay days where he will have to pay $209.50 per day. JACKIE spoke with patient and let him know [facility] can take him. SW also let patient know that about his co-pay days. Patient verbalized understanding and agreement. JACKIE let physician know that patient was accepted at [facility] and his ride has to pick him up at 1130. JACKIE will complete a 7000 in [employer] system. Plan: d/c to [facility] under skilled level of care on a convalescent stay. Patient's caregiver Michelle will transport patient. Karli BRAVO
[2024-07-28 10:00] VITALS: PULSE 72
[2024-07-28] MEDS: Metoprolol(XL)Succ 25 MG Tablet PO (10:00)
[2024-07-28] MEDS: SimETHICONE 80 MG Chewable Tablet PO (10:00)
[2024-07-28] MEDS: Nystatin Powder 15gm Bottle 1 APPLIC TOPICAL (10:03)
[2024-07-28] MEDS: Menthol/Lanolin/Calamine/Znox 113 GM Tube 1 APPLIC TOPICAL (10:04)
[2024-07-28 10:06] VITALS: BP 118/64; PULSE 65; RESP 18; TEMP 36.2; O2SAT 98
--- NOTE | 2024-07-28 10:27 | DS.PCM_ITS ---
Providers Date of Admission: 07/24/24 Primary Care Physician: Dr. 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 Patient admitted to monitored bed started on IV fluid resuscitation with monitoring of electrolytes ordered. Did avoid potential nephrotoxic medications including spironolactone as well as furosemide * DC solomon * Follow up with nephrology as outpt. Acute COVID infection * Patient currently on room air patient was therefore not started on Decadron nor remdesivir will continue with symptom management UTI * enterococcus * on amp/SB. Change to Augmentin and treat through 07/31 Hematuria * Secondary to acute cystitis exacerbated by the use of systemic anticoagulation with apixaban. Apixaban held patient managed with continuous bladder irrigation, since discontinued. Chronic conditions: * Chronic congestive heart failure with preserved ejection fraction? Currently compensated. Patient is on furosemide as well as spironolactone held given patient worsening kidney function * Chronic atrial fibrillation?apixaban held Physical deconditioning * Requested for PT OT eval and social work therapist to assist with discharge planning * Now planning on SNF. Medications at Discharge Home Medications atorvastatin 40 mg tablet 40 mg PO QHS cholesterol 01/25/22 acetaminophen 325 mg tablet 650 mg (2 x 325 mg) PO Q6H PRN PRN Pain 1-10 Or Fever>100.7 #0 tabs 03/05/23 menthol 0.44 %-zinc oxide 20.6 % topical ointment (Calmoseptine) 1 applic topical TID #0 grams 03/05/23 metoprolol succinate 25 mg tablet,extended release 24 hr 25 mg PO DAILY blood pressur #90 tabs 08/26/23 apixaban 2.5 mg tablet (Eliquis) 2.5 mg PO BID #180 tabs 09/27/23 dapagliflozin propanediol 10 mg tablet (Farxiga) 10 mg PO DAILY #90 tabs 05/26/24 nystatin 100,000 unit/gram topical powder (Neamy) 1 applic topical TID #0 grams 05/31/24 amoxicillin 875 mg-potassium clavulanate 125 mg tablet 1 tab PO Q12H #7 tabs 07/28/24 simethicone 80 mg chewable tablet 80 mg PO 4X/DAY PRN PRN Indigestion #0 tabs 07/28/24 Hospital Course Operations None Procedures None Summary of Care Provided Minutes Spent on Discharge: 31 Physical Exam Const alert and no apparent distress Constitutional Narrative: up in chair. Non-toxic. Afebrile. Weight / BMI Weight Weight: 113.6 kg Body Mass Index (BMI) 38.0 ABG / Lab / Microbiology Data 07/28/24 03:25 07/28/24 03:25 Laboratory: Laboratory Results - last 24 hr 07/28/24 03:25: WBC 4.4, RBC 3.28 L, Hgb 10.2 L, Hct 31.7 L, MCV 96.6 H, MCH 31.1, MCHC 32.2, RDW Std Deviation 54.8 H, RDW Coeff of Olvin 15.4 H, Plt Count 155, MPV 10.9, Immature Gran % (Auto) 1.100 H, Neut % (Auto) 53.4, Lymph % (Auto) 26.2, Russell % (Auto) 13.2 H, Eos % (Auto) 5.9 H, Baso % (Auto) 0.2, Absolute Neuts (auto) 2.3, Absolute Lymphs (auto) 1.15, Nucleated RBC % 0, Sodium 136, Potassium 4.4, Chloride 109 H, Carbon Dioxide 22.0, Anion Gap 5, BUN 42 H, Creatinine 1.75 H, Estim Creat Clear Calc 38.44, Est GFR (MDRD) Af Amer 48 L, Est GFR (MDRD) Non-Af 40 L, BUN/Creatinine Ratio 24.0 H, Glucose 96, Calcium 7.8 L Microbiology: Microbiology 07/24/24 10:49 Urine Catheter - Solomon Urine Culture - Final Enterococcus faecalis 07/24/24 16:21 Mucosa - Nose Respiratory Panel (PCR) - Final 07/24/24 09:18 Mucosa - Nose SARS-CoV-2, Influenza & RSV (PCR) - Final SARS-CoV-2 (COVID 19 PCR) D/C Instructions Discharge Diet: No restrictions DC O2, CPAP, BIPAP Needs Home O2 Discharge instructions: No Meaningful Use Info Meaningful Use Meaningful Use Diagnoses (Choose all that apply): None applicable Ischemic Stroke Statin Dosing Therapy Reference: STATIN DOSE THERAPY REFERENCE: * Patients > 75 years receive moderate or high dose statin therapy. * Patients 75 years or YOUNGER should receive HIGH intensity statin dose unless contraindicated. You will be required to document reason for non-treatment if statin daily dose does not meet guidelines. HIGH DOSE STATIN THERAPY DAILY Atorvastatin > than or = to 40 mg Rosuvastatin > than or = to 20 mg Amlodipine + Atorvastatin > than or = to 2.5/40 mg Ezetimibe + Simvastatin 10/80 mg Simvastatin 80mg Discharge Plan Admission Admit Date/Time: 07/24/24 13:01 Primary Reason for Your Visit: UTI. COVID. Attending Provider: Scar Steven Primary Care Provider: Kodak Hernandez Consulting Providers: Danny Ramos Instructions Additional Instructions / Restrictions: Quarantine through 07/29m then wear a mask around others from 07/30 to 08/03. Discharge Orders/Prescriptions Prescriptions: New simethicone 80 mg Tablet,Chewable 80 mg PO 4X/DAY PRN PRN (Reason: Indigestion) Qty: 0 0RF amoxicillin-pot clavulanate 875-125 mg tablet 1 tab PO Q12H Qty: 7 0RF Continued atorvastatin 40 mg tablet 40 mg PO QHS Eliquis 2.5 mg tablet 2.5 mg PO BID Qty: 180 3RF acetaminophen 325 mg Tablet 650 mg PO Q6H PRN PRN (Reason: Pain 1-10 Or Fever>100.7) Qty: 0 0RF menthol-zinc oxide [Calmoseptine] 0.44-20.6 % Ointment 1 applic topical TID Qty: 0 0RF Protocol: *Topical Application Instructions APPLICATION INSTRUCTIONS: Buttocks/Groin/Abd folds nystatin [Nyamyc] 100,000 unit/gram Powder 1 applic topical TID Qty: 0 0RF Protocol: *Topical Application Instructions APPLICATION INSTRUCTIONS: apply groin /under breasts metoprolol succinate 25 mg tablet extended release 24 hr 25 mg PO DAILY Qty: 90 3RF dapagliflozin propanediol [Farxiga] 10 mg tablet 10 mg PO DAILY Qty: 90 3RF Discontinued spironolactone 25 mg tablet 12.5 mg PO DAILY 30 Days Qty: 15 0RF torsemide 20 mg tablet 20 mg PO DAILY Referrals / Follow Up: [facility] [Provider Group] - Within 1 Month Kodak Hernandez MD [Primary Care Provider] - Within 2 Weeks Disposition Disposition (needs filled in before D/C Order can be placed): Care Home Facility Charges/Coding Visit Charges Inpatient E&M: 37299 Disch Hosp >30min
--- NOTE | 2024-07-28 10:43 | TREXTCAR_ITS ---
Diet Diet Order/Speech Therapy: 07/24/24 13:15 Diet: Regular - General Food consistency:: Regular Liquid Consistency:: Regular/Thin Type of Dietary Supplement:: Ensure Plus High Protein Diet Comments: 240mL EPHP w/lunch Routine Orders/Code Status Code Status: DNRCC-A (no intubation) DC O2, CPAP, BIPAP needs Home O2 Discharge instructions: No Wound(s) RIGHT BUTTOCK: Wound Type: Laceration LEFT BUTTOCK: Wound Type: Abrasion delaney cleft: Wound Type: moisture associated skin damage Therapies Weight Bearing: Full weight bearing Physical Therapy: Eval and Treat Occupational Therapy: Eval and Treat Problem/Diagnosis (1) Urinary tract infection: Status: Acute Code(s): N39.0 - Urinary tract infection, site not specified (2) COVID-19: Status: Acute Code(s): U07.1 - COVID-19 Plan TIMBO: * 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 Patient admitted to monitored bed started on IV fluid resuscitation with monitoring of electrolytes ordered. Did avoid potential nephrotoxic medications including spironolactone as well as furosemide * DC solomon * Follow up with nephrology as outpt. Acute COVID infection * Patient currently on room air patient was therefore not started on Decadron nor remdesivir will continue with symptom management UTI * enterococcus * on amp/SB. Change to Augmentin and treat through 07/31 Hematuria * Secondary to acute cystitis exacerbated by the use of systemic anticoagulation with apixaban. Apixaban held patient managed with continuous bladder irrigation, since discontinued. Chronic conditions: * Chronic congestive heart failure with preserved ejection fraction? Currently compensated. Patient is on furosemide as well as spironolactone held given patient worsening kidney function * Chronic atrial fibrillation?apixaban held Physical deconditioning * Requested for PT OT eval and protective services social worker to assist with discharge planning * Now planning on SNF. Allergies/Procedures Done in Hospital Allergies No Known Allergies Allergy (Verified 07/24/24 08:36) Type of Care/Length of Stay Estimated LOS: Convalescent Care Less Than 30 days Type of Care Needed: Skilled Rehab Potential: Good Prognosis: Good Additional Orders/Day of Discharge Day of Discharge: 07/28/24 Dietary and Speech Recommendations Dietitian Recommendations/Changes: Continue liberal regular diet d/t poor PO intake. Will order 240ml ensure plus high protein with lunch to better meet established nutrition needs while appetite is poor. Will monitor weight trends. Reviewed and approved by Lay Lopez, JERRY, LD. Discharge Plan Admission Admit Date/Time: 07/24/24 13:01 Primary Reason for Your Visit: UTI. COVID. Attending Provider: Scar Steven Primary Care Provider: Kodak Hernandez Consulting Providers: Danny Ramos Instructions Additional Instructions / Restrictions: Quarantine through 07/29m then wear a mask around others from 07/30 to 08/03. Discharge Orders/Prescriptions Prescriptions: New simethicone 80 mg Tablet,Chewable 80 mg PO 4X/DAY PRN PRN (Reason: Indigestion) Qty: 0 0RF amoxicillin-pot clavulanate 875-125 mg tablet 1 tab PO Q12H Qty: 7 0RF Continued atorvastatin 40 mg tablet 40 mg PO QHS Eliquis 2.5 mg tablet 2.5 mg PO BID Qty: 180 3RF acetaminophen 325 mg Tablet 650 mg PO Q6H PRN PRN (Reason: Pain 1-10 Or Fever>100.7) Qty: 0 0RF menthol-zinc oxide [Calmoseptine] 0.44-20.6 % Ointment 1 applic topical TID Qty: 0 0RF Protocol: *Topical Application Instructions APPLICATION INSTRUCTIONS: Buttocks/Groin/Abd folds nystatin [Nyamyc] 100,000 unit/gram Powder 1 applic topical TID Qty: 0 0RF Protocol: *Topical Application Instructions APPLICATION INSTRUCTIONS: apply groin /under breasts metoprolol succinate 25 mg tablet extended release 24 hr 25 mg PO DAILY Qty: 90 3RF dapagliflozin propanediol [Farxiga] 10 mg tablet 10 mg PO DAILY Qty: 90 3RF Discontinued spironolactone 25 mg tablet 12.5 mg PO DAILY 30 Days Qty: 15 0RF torsemide 20 mg tablet 20 mg PO DAILY Referrals / Follow Up: [facility] [Provider Group] - Within 1 Month Kodak Hernandez MD [Primary Care Provider] - Within 2 Weeks Disposition Disposition (needs filled in before D/C Order can be placed): [facility]
--- NOTE | 2024-07-28 10:45 | NURSING ---
Report called to Bernadette at [facility]
--- NOTE | 2024-07-28 10:48 | CASEMGMT ---
Discharge orders and signed med list sent to [facility]. Pts friends will provide transport. Nursing and SW updated. Sara Sutton DC Planning Asst.
--- NOTE | 2024-07-28 11:06 | PHA.DC.MR.R ---
Pharmacy [place] Med Reconciliation Pharmacy Service has performed discharge medication reconciliation for this patient. The patient's discharge medication list was reviewed for discrepancies and discrepancies were resolved. Medications at Discharge Home Medications atorvastatin 40 mg tablet 40 mg PO QHS cholesterol 01/25/22 acetaminophen 325 mg tablet 650 mg (2 x 325 mg) PO Q6H PRN PRN Pain 1-10 Or Fever>100.7 #0 tabs 03/05/23 menthol 0.44 %-zinc oxide 20.6 % topical ointment (Calmoseptine) 1 applic topical TID #0 grams 03/05/23 metoprolol succinate 25 mg tablet,extended release 24 hr 25 mg PO DAILY blood pressur #90 tabs 08/26/23 apixaban 2.5 mg tablet (Eliquis) 2.5 mg PO BID #180 tabs 09/27/23 dapagliflozin propanediol 10 mg tablet (Farxiga) 10 mg PO DAILY #90 tabs 05/26/24 nystatin 100,000 unit/gram topical powder (Nyamyc) 1 applic topical TID #0 grams 05/31/24 amoxicillin 875 mg-potassium clavulanate 125 mg tablet 1 tab PO Q12H #7 tabs 07/28/24 simethicone 80 mg chewable tablet 80 mg PO 4X/DAY PRN PRN Indigestion #0 tabs 07/28/24
--- NOTE | 2024-07-28 14:49 | CHAPLAIN ---
Type of Pastoral Visit ___ Initial Visit ___ Follow-up Visit ___ On-call Visit ___ General Patient Visit ___ Spiritual Assessment ___ Family Conference ___ Bereavement ___ Rapid Response ___ Code Blue ___ Other (describe below) Pastoral Care Referral From ___ Patient ___ Family ___ Nurse ___ Physician ___ Mobile Lounge Driver Or Operator ___ Brick Washer ___ Other (describe below) Sacrament/Intervention ___ Active listening ___ Anointing ___ Sabianist ___ Bereavement ___ Communion ___ Cora exploration ___ ___ Life review ___ Prayer ___ Reconciliation ___ Sacrament of Sick ___ Supportive presence ___ Wedding ___ Other (describe below) Pastoral Comments patient was discharged before he could be seen by this school athletic director
== END 2024-07-28 11:07 | disposition skilled nursing facility (03) | DRG 689 ==
LOC: ED 13:16 → PCU 14:17
PROVIDERS: Admitting Provider Internal Medicine; Emergency Provider Emergency Medicine; PCP Family Medicine
DX: N30.01 Acute cystitis with hematuria (principal); U07.1 COVID-19; D68.32 Hemorrhagic disorder due to extrinsic circulating anticoagulants; D62 Acute posthemorrhagic anemia; I13.0 Hypertensive heart and chronic kidney disease with heart failure and stage 1 through stage 4 chronic kidney disease, or unspecified chronic kidney disease; I48.20 Chronic atrial fibrillation, unspecified; E87.1 Hypo-osmolality and hyponatremia; N17.9 Acute kidney failure, unspecified; I50.32 Chronic diastolic (congestive) heart failure; D63.1 Anemia in chronic kidney disease; N18.30 Chronic kidney disease, stage 3 unspecified; E78.5 Hyperlipidemia, unspecified; G47.33 Obstructive sleep apnea (adult) (pediatric); I25.10 Atherosclerotic heart disease of native coronary artery without angina pectoris; B95.2 Enterococcus as the cause of diseases classified elsewhere; Z79.01 Long term (current) use of anticoagulants; Z95.5 Presence of coronary angioplasty implant and graft; Z85.46 Personal history of malignant neoplasm of prostate; Z79.899 Other long term (current) drug therapy; Z90.49 Acquired absence of other specified parts of digestive tract; R53.81 Other malaise
CPT/HCPCS: 36415; 51702; 70450; 71046; 80048; 81001; 83735; 84100; 84484; 85025; 85610; 85730; 87077; 87086; 87088; 87186; 87631; 87633; 93005; 97116; 97162; 97166; 97530; 97535; 99285; A4216; J0295